=== PATIENT | male | born 1950 | race Caucasian/White ===

== ENCOUNTER 2025-01-26 08:34 | Outpatient (CLI) | payer BC, SELFPAY ==
--- OUTSIDE RECORDS SUMMARY | 2025-01-26 08:50 | XMS_ITS | CONTINUITY OF CARE DOCUMENT ---
Author Name deborah cabrera Address Unknown Organization [facility] Address [id number] 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 active Tremaine Marti MD not see n on echo Diabetes mellitus active Tremaine Marti MD n ml egfr on x 3 rx Sleep apnea;on rx active Tremaine Marti MD Hyperlipidemia;NEG CRP active Tremaine Marti MD FAMILY HISTORY OF HEART DISEASE active Tremaine Marti MD Tobacco dependence, continuous active Tremaine Marti MD CAD;carotid plaquing active Tremaine Gregg ox x 2.5 hx of AMI, subendocardial;multiple active Tremaine Marti MD CABG;2004 in [place], active Tremaine Marti MD Cardiomyopathy completed - Tremaine Marti MD lowest 25 Impotence of organic origin active Tremaine rick MD PVD; active Tremaine Marti MD Obesity active Tremaine Marti MD COPD active Tremaine Marti MD Adenomatous colonic polyp active Tremaine mccarty MD Diastolic CHF; completed - Tremaine Marti MD lowest 25, on farxag, did not toll entresto and cannot afford kerenida Anemia completed - Tremaine Marti MD LBBB completed - Tremaine Marti MD Screening active Tremaine Marti MD Restrictive lung disease completed - Tremaine Marti MD Hypertriglyceridemia active Tremaine Gregg Bradycardia;due to rx completed - Tremaine Marti MD Valvular heart disease completed 9 - Tremaine Marti MD SVT;brief;nml tsh active Tremaine Marti MD Exposure to SARS-associated coronavirus;had vaccine active Tremaine Marti MD Venous insufficiency active Tremaine Gregg Gynecomastia, male completed - Tremaine Marti MD Granulomatous lung disease active Tremaine caldwell MD Microalbuminuria active Tremaine Marti MD nm l egfr on x3 rx Cardiomyopathy, ischemic completed - Tremaine Marti MD lowest 27% CHF, systolic, chronic active Tremaine Marti MD lowest 27, did not huan entresto r pm not covredd n eg iron Cardiomyopathy, ischemic completed - Tremaine Marti MD S/P BIV/AICD Biotronik ( MRI Safe) active Tremaine Marti MD lv lead in septum ENCOUNTERS Date Type Provider Location Encounter Diag nosis - In-person encounter Office Visit Tremaine Marti MD [facility] - In-person encounter Office Visit Luis Umana MD [facility] - In-person encounter Office Visit Tremaine Marti MD [facility] SVT;brief;nml tshCHF, systolic, chronicCardiomyopathy, ischemicS/P BIV/AICD Biotronik ( MRI Safe) - In-person encounter Office Visit Luis Umana MD [facility] - In-person encounter Office Visit Tremaine Marti MD [facility] Diabetes mellitusCAD;carotid plaquingGynecomastia, maleMicroalbuminuriaCardiomyopathy, ischemicCHF, systolic, chronic - In-person encounter Office Visit Tremaine Marti MD [facility] - In-person encounter Office Visit Luis Umana MD [facility] Cardiomyopathy, ischemicCHF, systolic, chronic - In-person encounter Office Visit Tremaine Marti MD [facility] - In-person encounter Office Visit Tremaine Marti MD [facility] Diabetes mellitusCAD;carotid plaquing - In-person encounter Office Visit Tremaine Marti MD [facility] LBBBValvular heart disease - In-person encounter Office Visit Tremaine Marti MD [facility] Exposure to SARS-associated coronavirus; had vaccineGranulomatous lung disease - In-person encounter Office Visit rTemaine Marti MD [facility] - In-person encounter Office Visit Tremaine Marti MD [facility] - In-person encounter Office Visit Chandan Birmingham MD [facility] - In-person encounter Office Visit Tremaine Marti MD [facility] CardiomyopathyDiastolic CHF;Bradycardia; due to rxSVT;brief;nml tshExposure to SARS-associated coronavirus;had vaccineVenous insufficiency - In-person encounter Office Visit Tremaine Marti MD [facility] Restrictive lung disease - In-person encounter Office Visit Tremaine Marti MD [facility] CAD;carotid plaquingCOPDScreeningHypertriglyceridemia - In-person encounter Office Visit Tremaine Marti MD [facility] Tobacco dependence, continuousDiastolic CHF;AnemiaScreening - In-person encounter Office Visit Tremaine Marti MD [facility] Hyperlipidemia;NEG CRPAdenomatous coloni c polypDiastolic CHF; - In-person encounter Office Visit Tremaine Marti MD [facility] PVD;Obesity - In-person encounter Office Visit Tremaine Marti MD [facility] Hyperlipidemia;NEG CRPCAD;carotid plaquingImpotence of organic origin - In-person encounter Office Visit Tremaine Marti MD [facility] Diabetes mellitusSleep apnea;on rxHyperlipidemia;NEG CRPFAMILY HISTORY OF HEART DISEASETobacco dependence, continuousCAD;carotid plaquinghx of AMI, subendocardial;multipleCABG;2004 in [place], VITAL SIGNS Date Observation Value Provider Body Mass Index (Ratio) 31.66 kg/m2 Kassandra Marti MD blood pressure, cuff size regular Rajeev Sanabria RN blood pressure, diastolic 60 mm[Hg] Rajeev Sanabria RN blood pressure, systolic 128 mm[Hg] Robert Sanabria RN oxygen saturation, oximetry 96 % Robert Sanabria RN respiratory rate E&M 18 /min Robert palacios RN pulse rate 71 /min Robert Sanabria RN weight E&M 240 [lb_av] Robert Sanabria RN Body Mass Index (Ratio) 32.06 kg/m2 Wong Umana MD blood pressure, cuff size regular An meghan Austin blood pressure, diastolic 66 mm[Hg] Jayashree Austin blood pressure, systolic 111 mm[Hg] Barbi Austin oxygen saturation, oximetry 95 % Jeanie Austin respiratory rate E&M 14 /min Jeanie Austin pulse rate 71 /min Jeanie Austin weight E&M 243 [lb_av] Jeanie Austin height E&M 73 [in_i] Jeanie [place] Body Mass Index (Ratio) 32.19 kg/m2 Kassandra Marti MD blood pressure, cuff size regular David reinoso Orellana blood pressure, diastolic 55 mm[Hg] Ta arleth Orellana blood pressure, systolic 108 mm[Hg] Tab ithmissy Orellana pulse rate 76 /min Katja Orellana oxygen saturation, oximetry 96 % Katja Orellana respiratory rate E&M 12 /min Katja Orellana weight E&M 244 [lb_av] Katja Orellana height E&M 73 [in_i] Katja Orellana Body Mass Index (Ratio) 32.45 kg/m2 Wong Umana MD blood pressure, cuff size large Ke rri Dorothy blood pressure, diastolic 80 mm[Hg] Ke rri Titiuenesam blood pressure, systolic 132 mm[Hg] Ker ri Dorothy oxygen saturation, oximetry 94 % Evelin Dorothy respiratory rate E&M 12 /min Evelin Roberto hurt pulse rate 72 /min Evelin Keith kelly weight E&M 246 [lb_av] Evelin Keith kelly height E&M 73 [in_i] Evelin Keith kelly Body Mass Index (Ratio) 32.32 kg/m2 Kassandra Marti MD blood pressure, diastolic 55 mm[Hg] Ja rret blood pressure, systolic 114 mm[Hg] Jar ret pulse rate 70 /min Leonel blood pressure, cuff size regular Ja rr oxygen saturation, oximetry 96 % Leonel respiratory rate E&M 16 /min Leonel weight E&M 245 [lb_av] Leonel height E&M 73 [in_i] Leonel Body Mass Index (Ratio) 32.19 kg/m2 Mariposavalencia hanks [facility] blood pressure, cuff size regular [facility] blood pressure, diastolic 64 mm[Hg] Ja rr blood pressure, systolic 127 mm[Hg] Jar ret pulse rate 65 /min Leonel oxygen saturation, oximetry 97 % Leonel respiratory rate E&M 16 /min Leonel weight E&M 244 [lb_av] Leonel height E&M 73 [in_i] Leonel y Body Mass Index (Ratio) 32.19 kg/m2 Wong Umana MD blood pressure, diastolic 69 mm[Hg] Yaritza nkLogliz blood pressure, systolic 130 mm[Hg] Lucille kLogliz pulse rate 75 /min Renetta Orellana blood pressure, cuff size regular Fa rosario Orellana blood pressure, diastolic 69 mm[Hg] Fa [facility] Esteban blood pressure, systolic 130 mm[Hg] [facility] oxygen saturation, oximetry 97 % Renetta Orellana respiratory rate E&M 16 /min Renetta Uriel iller weight E&M 244 [lb_av] [facility] height E&M 73 [in_i] [facility] Body Mass Index (Ratio) 31.92 kg/m2 Kassandra Marti MD blood pressure, cuff size regular Fa [facility] blood pressure, diastolic 65 mm[Hg] Fa [facility] blood pressure, systolic 123 mm[Hg] Hal [facility] pulse rate 76 /min [facility] oxygen saturation, oximetry 97 % [facility] respiratory rate E&M 16 /min Renetta Uriel ille weight E&M 242 [lb_av] [facility] height E&M 73 [in_i] [facility] Body Mass Index (Ratio) 33.64 kg/m2 Kassandra Marti MD blood pressure, diastolic 75 mm[Hg] St val Howe blood pressure, systolic 130 mm[Hg] Sta thong Howe oxygen saturation, oximetry 94 % Ellen Howe pulse rate 69 /min Ellenthong Howe respiratory rate E&M 16 /min Ellen malin weight E&M 255 [lb_av] Ellenthong Howe height E&M 73 [in_i] Ellenthong Howe Body Mass Index (Ratio) 33.64 kg/m2 Kassandra Marti MD blood pressure, diastolic -1 mm[Hg] Li nkLogic blood pressure, systolic 107 mm[Hg] Lucille kLogic blood pressure, diastolic 64 mm[Hg] Sa ra Willis blood pressure, systolic 107 mm[Hg] Anil a Willis oxygen saturation, oximetry 98 % Pema Willis respiratory rate E&M 18 /min Pema Si ms pulse rate 78 /min Pema Willis blood pressure, cuff size large Sa ra Willis weight E&M 255 [lb_av] Pema Willis height E&M 73 [in_i] Pema Willis Body Mass Index (Ratio) 34.30 kg/m2 Kassandra Marti MD blood pressure, diastolic 66 mm[Hg] Ch astity Amos blood pressure, systolic 125 mm[Hg] Ivone stity Amos oxygen saturation, oximetry 95 % Chastity Amos pulse rate 68 /min Chastity Amos respiratory rate E&M 16 /min Chastit y Amos weight E&M 260 [lb_av] Chastity Amos height E&M 73 [in_i] [facility] Amos Body Mass Index (Ratio) 36.41 kg/m2 Kassandra Marti MD blood pressure, cuff size large Ke rri Titiuenenfeldvinh blood pressure, diastolic 64 mm[Hg] Ke rri Titiuenenfeldvinh blood pressure, systolic 130 mm[Hg] Ker ri Dorothy oxygen saturation, oximetry 98 % Evelin Dorothy respiratory rate E&M 16 /min Evelin hurt pulse rate 73 /min Evelin Keith er weight E&M 276 [lb_av] Evelin Titiuenenfe er height E&M 73 [in_i] Evelin Titiuenenfkenan er Body Mass Index (Ratio) 36.41 kg/m2 Kassandra Marti MD blood pressure, diastolic 66 mm[Hg] Cy david Gramajo blood pressure, systolic 109 mm[Hg] Debra Gramajo oxygen saturation, oximetry 95 % Corina Gramajo pulse rate 78 /min Corina Moreno l respiratory rate E&M 16 /min Corinachristina Gramajo blood pressure, cuff size regular Cy david Gramajo weight E&M 276 [lb_av] Corinachristina jon height E&M 73 [in_i] Corina Michelbel l Body Mass Index (Ratio) 36.54 kg/m2 Abhi Birmingham MD blood pressure, diastolic 57 mm[Hg] Rh onrui Ninfa blood pressure, systolic 100 mm[Hg] Rho nda Ninfa oxygen saturation, oximetry 97 % Tamy Ninfa pulse rate 70 /min Tamy Ninfa weight E&M 277 [lb_av] Tamy Ninfa blood pressure, cuff size regular Rh aj Ninfa respiratory rate E&M 16 /min Tamy Ninfa height E&M 73 [in_i] Tamy Ninfa Body Mass Index (Ratio) 36.15 kg/m2 Kassandra Marti MD blood pressure, diastolic 63 mm[Hg] Cy ntanette Gramajo blood pressure, systolic 105 mm[Hg] Debra christina Gramajo blood pressure, cuff size regular Cy david Gramajo pulse rate 57 /min Corina jon oxygen saturation, oximetry 96 % Corina Gramajo respiratory rate E&M 16 /min Corinachristina Gramajo weight E&M 274 [lb_av] Corina jon height E&M 73 [in_i] Corina Michelbel danay Body Mass Index (Ratio) 37.99 kg/m2 Kassandra Marti MD blood pressure, resting Yes Tons [place] blood pressure, diastolic 60 mm[Hg] To nsha [place] blood pressure, systolic 98 mm[Hg] Ton sha [place] oxygen saturation, oximetry 95 % [place]ha [place] respiratory rate E&M 16 /min [place] pulse rate 59 /min [place] weight E&M 288 [lb_av] [place] height E&M 73 [in_i] [place] Body Mass Index (Ratio) 39.31 kg/m2 Kassandra Marti MD blood pressure, diastolic 70 mm[Hg] Da nelson Terrie blood pressure, systolic 112 mm[Hg] Dac ia Terrie oxygen saturation, oximetry 93 % Fabiola Terrie respiratory rate E&M 18 /min Fabiola V oss pulse rate 67 /min Fabiola Terrie weight E&M 298 [lb_av] Fabiola Terrie height E&M 73 [in_i] Fabiola Terrie Body Mass Index (Ratio) 39.92 kg/m2 Kassandra Marti MD blood pressure, diastolic 70 mm[Hg] Anastasia Bean blood pressure, systolic 124 mm[Hg] Nirmala Bean oxygen saturation, oximetry 97 % Gemma Bean respiratory rate E&M 20 /min Janine Bean pulse rate 66 /min Gemma siu weight E&M 302.6 [lb_av] Gemma escalera height E&M 73 [in_i] Gemma siu Body Mass Index (Ratio) 40.37 kg/m2 Kassandra Marti MD blood pressure, diastolic 72 mm[Hg] Anastasia Bean blood pressure, systolic 132 mm[Hg] Nirmala Bean oxygen saturation, oximetry 96 % Gemma Bean respiratory rate E&M 20 /min Janine Bean pulse rate 67 /min Gemma siu weight E&M 306 [lb_av] Gemma underwoodlaura height E&M 73 [in_i] Gemma Alonzo yasmineon blood pressure, diastolic 66 mm[Hg] Anastasia Bean blood pressure, systolic 116 mm[Hg] Nirmala Bean pulse rate 63 /min Gemma siu oxygen saturation, oximetry 98 % Gemma Bean respiratory rate E&M 18 /min Janine Bean Body Mass Index (Ratio) 39.58 kg/m2 Sari Bean weight E&M 300 [lb_av] Gemma Alonzo yasmineon weight E&M 298 [lb_av] Susan Gill height E&M 73 [in_i] Susan Gill blood pressure, diastolic 67 mm[Hg] Anastasia Bean blood pressure, systolic 120 mm[Hg] Nirmala Palomoholdenshad Bean Body Mass Index (Ratio) 39.34 kg/m2 Sari Bean pulse rate 66 /min Gemma siu oxygen saturation, oximetry 97 % Gemma Bean respiratory rate E&M 18 /min Janine Bean weight E&M 298.2 [lb_av] Gemma duranon blood pressure, diastolic 66 mm[Hg] Anastasia Bean blood pressure, systolic 120 mm[Hg] Nirmala Bean Body Mass Index (Ratio) 38.57 kg/m2 Sari Bean pulse rate 72 /min Gemma Alonzo yasminelaura oxygen saturation, oximetry 97 % Gemma Bean respiratory rate E&M 18 /min Janine Bean weight E&M 292.4 [lb_av] Gemma Stevens enson height E&M 73 [in_i] Gemma Alonzo yasminelaura ALLERGIES Allergy Name Onset Date Reaction Criticality Status ALDACTONE gyno Low Criticality active ENTRESTO low bp Low Criticality active DYE High Criticality active RESULTS Date Observation Value Provider Reference Range Interpretation Location activated partial thromboplastin time (aPTT) 29 s [facility] 24-33 prothrombin time (patient) 11.4 s [facility] 9.1-12.0 international normalized ratio (INR) 1.1 [facility] 0.9-1.2 bacteria, urine microscopy None seen [facility] None seen/Few hyaline casts, urine None seen [facility] None seen epithelial cells, urine 0-10 [facility] 0 - 10 RBC, Urine 0-2 /hpf [facility] 0 - 2 WBC urine on microscopy None seen /hpf [facility] 0 - 5 urinalysis, microscopic examination See below: [facility] nitrate, urine Negative [facility] Negative urobilinogen, urine, semiquantitative (dipstick) 0.2 [facility] 0.2-1.0 bilirubin, urine Negative [facility] Negative hemoglobin, urine, by dipstick Negative [facility] Negative ketones, urine, by test strip Negative [facility] Negative glucose, urine 3+ [facility] Negative Abnormal protein, urine, semiquantitative (dipstick) 1+ [facility] Negative/Tra ce Abnormal leukocyte esterase, urine, by dipstick Negative [facility] Negative appearance, urine Clear [facility] Clear urine color Yellow [facility] Yellow pH, urine, semiquantitative 6.0 [facility] 5.0-7.5 specific gravity, body fluid >=1.030 [facility] 1.005-1.030 Abnormal alanine aminotransferase (SGPT), serum 10 1/L [facility] 0-44 aspartate aminotransferase (SGOT), serum 18 1/L [facility] 0-40 alkaline phosphatase, serum 49 1/L [facility] 44-121 bilirubin, serum, total 0.5 mg/dL [facility] 0.0-1.2 globulin, serum 1.9 [facility] 1.5-4.5 albumin, serum 4.3 g/dL [facility] 3.8-4.8 protein, total, serum 6.2 g/dL [facility] 6.0-8.5 calcium, serum 9.2 mg/dL [facility] 8.6-10.2 carbon dioxide, venous blood 22 mmol/L [facility] 20-29 chloride, serum 105 mmol/L [facility] 96-106 potassium, serum 4.6 mmol/L [facility] 3.5-5.2 sodium, serum 142 mmol/L [facility] 666-573 7713/08/ 20 urea nitrogen/creatinine ratio, serum 15 [facility] 10-24 creatinine, serum 1.18 mg/dL [facility] 0.76-1.27 urea nitrogen, blood 18 mg/dL [facility] 8-27 blood glucose, random 152 mg/dL [facility] 70-99 High basophil count, absolute 0.0 x10E3/uL [facility] 0.0-0.2 Eosinophil Absolute Count 0.2 X10E3/UL [facility] 0.0-0.4 monocyte count, blood, automated 0.5 X10E3/UL [facility] 0.1-0.9 lymphocyte count, blood, automated 1.8 X10E3/UL [facility] 0.7-3.1 Absolute Neutrophils 5.3 X10E3/UL [facility] 1.4-7.0 basophils as percent of blood leukocytes 1 % [facility] Not Estab. eosinophils as percent of blood leukocytes 3 % [facility] Not Estab. monocytes as percent of blood leukocytes 6 % [facility] Not Estab. lymphocytes as percent of blood leukocytes 22 % [facility] Not Estab. neutrophils as percent of blood leukocytes 68 % [facility] Not Estab. platelet count 144 X10E3/UL [facility] 150-450 Low red blood cell distribution width 13.0 % [facility] 11.6-15.4 mean corpuscular hemoglobin concentration, RBC 32.1 G/DL [facility] 31.5-35.7 mean corpuscular hemoglobin, RBC 28.7 pg [facility] 26.6-33.0 mean corpuscular volume, RBC 90 fL [facility] 79-97 hematocrit, blood 46.8 % [facility] 37.5-51.0 hemoglobin, blood 15.0 g/dL [facility] 13.0-17.7 erythrocyte (RBC) count 5.23 X10E6/UL [facility] 4.14-5.80 leukocyte count, blood 7.8 X10E3/UL [facility] 3.4-10.8 c-reactive protein, quantitative, serum 1.23 mg/L [facility] 0.00-3.00 pro brain natriuretic peptide 468 pg/mL [facility] 0-376 High calcium, serum 9.8 mg/dL [facility] 8.6-10.2 carbon dioxide, venous blood 26 mmol/L [facility] 20-29 chloride, serum 101 mmol/L [facility] 96-106 potassium, serum 4.6 mmol/L [facility] 3.5-5.2 sodium, serum 144 mmol/L [facility] 078-510 1725/09/ 16 urea nitrogen/creatinine ratio, serum 16 [facility] 10-24 eGFR if 66 mL/min/{1.7 3_m2} [facility] >59 eGFR if not 57 mL/min/{1.7 3_m2} [facility] >59 Low creatinine, serum 1.26 mg/dL [facility] 0.76-1.27 urea nitrogen, blood 20 mg/dL [facility] 8-27 blood glucose, random 101 mg/dL [facility] 65-99 High pro brain natriuretic peptide 560 pg/mL [facility] 0-376 High microalbumin/creatin ine ratio, urine 58.2 MG/G CREAT [facility] 0.0-30.0 High microalbumin, random, urine 8.1 mg/dL [facility] Units converted. See lab report for original value. creatinine, random, urine 139.2 mg/dL [facility] Not Estab. lipoprotein, beta, serum, point, quantitative, calculated 72 mg/dL [facility] 0-99 very low density lipoproteins 51 mg/dL [facility] 5-40 High HDL cholesterol, serum 29 mg/dL [facility] >39 Low triglyceride, serum, random 255 mg/dL [facility] 0-149 High cholesterol, serum 152 mg/dL [facility] 045-231 9707/01/ 17 alanine aminotransferase (SGPT), serum 12 1/L [facility] 0-44 aspartate aminotransferase (SGOT), serum 15 1/L [facility] 0-40 alkaline phosphatase, serum 49 1/L [facility] 39-117 bilirubin, serum, total 0.4 mg/dL [facility] 0.0-1.2 albumin/globulin ratio, serum 2.1 [facility] 1.2-2.2 globulin, serum 2.1 [facility] 1.5-4.5 albumin, serum 4.4 g/dL [facility] 3.6-4.8 protein, total, serum 6.5 g/dL [facility] 6.0-8.5 calcium, serum 9.4 mg/dL [facility] 8.6-10.2 carbon dioxide, venous blood 28 mmol/L [facility] 18-29 chloride, serum 101 mmol/L [facility] 96-106 potassium, serum 4.2 mmol/L [facility] 3.5-5.2 sodium, serum 144 mmol/L [facility] 047-189 6461/01/ 17 urea nitrogen/creatinine ratio, serum 13 [facility] 10-24 eGFR if not 78 mL/min/{1.7 3_m2} [facility] >59 creatinine, serum 1.00 mg/dL [facility] 0.76-1.27 urea nitrogen, blood 13 mg/dL [facility] 8-27 blood glucose, random 88 mg/dL [facility] 65-99 pro brain natriuretic peptide 588.7 pg/mL [facility] 0.0 - 125.0 High very low density lipoproteins 46.4 mg/dL [facility] 5.0 - 40.0 High LDL/HDL (low-density lipoprotein/high-den sity lipoprotein) ratio 2.1 RATIO [facility] - lipoprotein, beta, serum, point, quantitative, calculated 70.6 (?) [facility] 0.0 - 100.0 HDL cholesterol, serum 33.0 mg/dL [facility] 35.0 - 55.0 Low cholesterol, serum 150.0 mg/dL [facility] 0.0 - 200.0 triglyceride, serum, fasting 232.0 mg/dL [facility] 0.0 - 150.0 High ferritin, serum 115.5 ng/mL [facility] 30.0 - 400.0 anion gap, serum 13.0 [facility] - albumin/globulin ratio, serum 2.4 g/dL [facility] 1.1 - 2.5 globulin, serum 1.9 [facility] 2.3 - 3.8 Low urea nitrogen/creatinine ratio, serum 11.8 [facility] - Estimated Glomerular Filtration Rate (calc) 71.2 (?) [facility] 59.0 - chloride, serum 104.0 mmol/L [facility] 98.0 - 107.0 potassium, serum 4.2 mmol/L [facility] 3.5 - 5.1 sodium, serum 144.0 mmol/L [facility] 136.0 - 145.0 creatinine, serum 1.1 mg/dL [facility] 0.7 - 1.2 carbon dioxide, venous blood 27.0 mmol/L [facility] 23.0 - 31.0 albumin, serum 4.5 g/dL [facility] 3.5 - 5.2 calcium, serum 9.6 mg/dL [facility] 8.6 - 10.2 aspartate aminotransferase (SGOT), serum 13.0 1/L [facility] 0.0 - 40.0 alkaline phosphatase, serum 48.0 1/L [facility] 40.0 - 130.0 alanine aminotransferase (SGPT), serum 12.0 1/L [facility] 0.0 - 41.0 protein, total, serum 6.4 g/dL [facility] 6.6 - 8.7 Low bilirubin, serum, total 0.3 mg/dL [facility] 0.0 - 1.2 urea nitrogen, blood 13.0 mg/dL [facility] 8.0 - 23.0 blood glucose, random 134.0 mg/dL [facility] 74.0 - 99.0 High red blood cell distribution width, size density 43.3 fL [facility] - immature granulocytes, percentage of total cells, blood 0.5 % [facility] - nucleated red blood cells as percent of blood leukocytes 0.0 % [facility] - red blood cell (erythrocyte) count, per high power field 0.0 10*3/UL [facility] - eosinophils as percent of blood leukocytes 3.6 % [facility] - neutrophils as percent of blood leukocytes 58.2 % [facility] - Absolute Neutrophils 3.8 CELLS/UL [facility] 1.5 - 7.8 basophils as percent of blood leukocytes 0.6 % [facility] - Absolute Basophils 0.0 CELLS/UL [facility] 0.0 - 0.2 monocytes as percent of blood leukocytes 6.5 % [facility] - Absolute Monocytes 0.4 CELLS/UL [facility] 0.2 - 1.0 lymphocytes as percent of blood leukocytes 30.6 % [facility] - Absolute Lymphocytes 2.0 CELLS/UL [facility] 0.9 - 3.9 mean platelet volume 10.8 (?) [facility] - platelet count 157.0 THOUSAND/UL [facility] 100.0 - 400.0 mean corpuscular hemoglobin concentration, RBC 31.5 G/DL [facility] 31.0 - 38.0 mean corpuscular hemoglobin, RBC 29.2 pg [facility] 25.0 - 35.0 mean corpuscular volume, RBC 92.7 fL [facility] 75.0 - 100.0 hematocrit, blood 41.6 % [facility] 35.0 - 55.0 hemoglobin, blood 13.1 g/dL [facility] 11.5 - 16.5 erythrocyte count, whole blood 4.5 MILLION/UL [facility] 3.5 - 5.5 iron, serum 89.0 ug/dL [facility] 31.0 - 144.0 iron saturation percent, serum 24.0 % [facility] 20.0 - 50.0 iron binding capacity, total 371.0 ug/dL [facility] 250.0 - 450.0 hemoglobin A1C, blood, as % of total hemoglobin 7.4 % [facility] 4.0 - 5.6 High anion gap, serum 14.7 [facility] - albumin/globulin ratio, serum 3.3 g/dL [facility] 1.1 - 2.5 High globulin, serum 2.1 [facility] 2.3 - 3.8 Low urea nitrogen/creatinine ratio, serum 13.0 [facility] - Estimated Glomerular Filtration Rate (calc) 79.7 (?) [facility] 59.0 - chloride, serum 104.3 mmol/L [facility] 98.0 - 107.0 potassium, serum 4.2 mmol/L [facility] 3.5 - 5.1 sodium, serum 146.0 mmol/L [facility] 136.0 - 145.0 High creatinine, serum 1.0 mg/dL [facility] 0.7 - 1.2 carbon dioxide, venous blood 27.0 mmol/L [facility] 23.0 - 31.0 albumin, serum 4.8 g/dL [facility] 3.5 - 5.2 calcium, serum 9.3 mg/dL [facility] 8.6 - 10.2 aspartate aminotransferase (SGOT), serum 17.0 1/L [facility] 0.0 - 40.0 alkaline phosphatase, serum 45.0 1/L [facility] 40.0 - 130.0 alanine aminotransferase (SGPT), serum 13.0 1/L [facility] 0.0 - 41.0 protein, total, serum 6.9 g/dL [facility] 6.6 - 8.7 bilirubin, serum, total 0.2 mg/dL [facility] 0.0 - 1.2 urea nitrogen, blood 13.0 mg/dL [facility] 8.0 - 23.0 blood glucose, random 76.0 mg/dL [facility] 74.0 - 99.0 pro brain natriuretic peptide 367.6 pg/mL [facility] 0.0 - 125.0 High international normalized ratio (INR) 1.0 Radha Louise Normal HISTORY OF MEDICATION USE Medication Status Instructions Dates Provider Indications Com ments Ozempic 1 mg/dose (4 mg/3 mL) pen injector active INJECT 1 MG UNDER THE SKIN ONCE WEEKLY Robyn Gonzalez Toujeo Max U-300 SoloStar 300 unit/mL (3 mL) insulin pen active INJECT 80 UNITS UNDER THE SKIN ONCE DAILY IN THE MORNING Kiarra Silverio tramadol 50 mg tablet completed 1 tablet every six hours for pain - Tremaine Marti MD doxycycline hyclate 100 mg capsule completed Take 1 capsule by mouth twice a day - Tremaine Marti MD Ozempic 2 mg/dose (8 mg/3 mL) pen injector completed Inject 2 mg subcutaneously once a week - Robyn Gonzalez tamsulosin 0.4 mg capsule active TAKE ONE CAPSULE BY MOUTH EVERY NIGHT AT BEDTIME FOR PROSTATE Tremaine Marti MD Kerendia 20 mg tablet active TAKE 1 TABLET BY MOUTH EVERY DAY [facility] Vascepa 1 gram capsule active Take 2 capsule by mouth twice a day [facility] rosuvastatin 20 mg tablet active Take 1 tablet by mouth once a day [facility] Vascepa 1 gram capsule completed TAKE 2 CAPSULES TWICE DAILY - Evelin De La Cruz Farxiga 10 mg tablet active Take 1 tablet by mouth once a day [facility] Ozempic 1 mg/dose (4 mg/3 mL) pen injector completed Inject 1 mg subcutaneously once a week - Tremaine Marti MD valsartan 40 mg tablet active Take 1 tablet by mouth once a day [facility] Xarelto 2.5 mg tablet active Take 1 tablet by mouth twice a day [facility] rosuvastatin 20 mg tablet completed TAKE 1 TABLET DAILY - Evelin Gruenenfelder Ozempic 1 mg/dose (4 mg/3 mL) pen injector completed weekly - Evelin De La Cruz Coreg 25 mg tablet active Take 1 tablet by mouth twice a day [facility] Special[facility] Farxiga 10 mg tablet completed TAKE 1 TABLET DAILY. - Evelin De La Cruz rosuvastatin 20 mg tablet completed Take 1 tablet by mouth once a day TAKE 1 TABLET DAILY - Evelin De La Cruz Vascepa 1 gram capsule completed Take 2 capsule by mouth twice a day TAKE 2 CAPSULES TWICE A DAY - Evelin De La Cruz Xarelto 2.5 mg tablet completed Take 1 tablet by mouth twice a day TAKE 1 TABLET TWICE A DAY - Evelin De La Cruz rosuvastatin 20 mg tablet completed TAKE 1 TABLET DAILY - Tatyana Hawk NP valsartan 40 mg tablet completed TAKE 1 TABLET DAILY - Evelin De La Cruz Farxiga 10 mg tablet completed TAKE 1 TABLET DAILY. REPLACES THE JARDIANCE. - Tatyana Hawk NP Kerendia 10 mg tablet completed Take 1 tablet by mouth once a day *STOP after coupons run out-denied by insurance - Tatyana Manucori Max U-300 SoloStar 300 unit/mL (3 mL) insulin pen completed - Katja Orellana eplerenone 25 mg tablet completed TAKE 1 TABLET DAILY (REPLACES ALDACTONE) - Steffi Blanc Ozempic 1 mg/dose (4 mg/3 mL) pen injector completed INJECT 1 MG UNDER THE SKIN ONCE WEEKLY, REDUCES RISK OF MAJOR CV EVENTS - Tatyana Hawk NP metformin 1,000 mg tablet active TAKE 1 TABLET TWICE A DAY [facility] furosemide 40 mg tablet completed TAKE 1 TABLET DAILY - Evelin De La Cruz Xarelto 2.5 mg tablet completed TAKE 1 TABLET TWICE A DAY - Tatyana Hawk NP Vascepa 1 gram capsule completed TAKE 2 CAPSULES TWICE A DAY - Tatyana Hawk NP Farxiga 10 mg tablet completed Take 1 tablet by mouth once a day - Pema Willis Diovan 40 mg tablet completed 1 tablet by mouth once a day - Pema Willis furosemide 40 mg tablet completed Take 1 tablet by mouth once a day as needed - Tremaine Marti MD Jardiance 10 mg tablet completed Take 1 tablet by mouth once a day - Robert Sanabria RN glipizide 10 mg tablet completed TAKE 1 TABLET TWICE A DAY - Kwaku Pineda rosuvastatin 20 mg tablet completed TAKE 1 TABLET DAILY - Kwaku Pineda eplerenone 25 mg tablet completed once a day - Leeann Ch NP Ozempic 1 mg/dose (2 mg/1.5 mL) pen injector completed Inject 1 mg subcutaneously once a week - Tremaine Marti MD Metamucil 0.4 gram capsule active Take 1 tablet once a day as needed Tatyana Hawk NP EMPAGLIFLOZIN 10 MG /PLACEBO completed 1 tab by mouth daily - Alfreda Díazeronina [facility] Xarelto 2.5 mg tablet completed Take 1 tablet twice a day - Mack Guerra Vascepa 1 gram capsule completed 2 twice a day - Tremaine Marti MD Crestor 20 mg tablet completed ONE TAB. DAILY - Tremaine Marti MD aspirin 81 mg tablet,delayed release (/EC) active 1 tablet by mouth once a day Beulah HUANG ASA/ RIVAROXABAN completed LTOLE ASA 100mg once daily and Rivaroxaban 2.5mg BID - Beulah ROBB-NIACIN 500 MG ORAL TABLET EXTENDED RELEASE completed 3 a day - Tremaine Marti MD TOPAMAX 50 MG ORAL TABLET completed daily - Tremaine Marti MD ADIPEX-P 37.5 MG ORAL CAPSULE completed daily - Tremaine Marti MD CLARITIN 10 MG ORAL TABLET completed once daily - Tremaine Marti MD SINGULAIR 10 MG ORAL TABLET completed one tab. daily - Tremaine Marti MD ASPIRIN ADULT LOW DOSE 81 MG ORAL TABLET DELAYED RELEASE completed One Tab By Mouth Daily - Beulah Edwards Entresto 24-26 mg tablet completed twice a day - Tremaine Marti MD IRON TABLET completed - Tremaine Marti MD B-Complex With B-12 2.5 mg-2.5 mg- 5 mg-100 mcg tablet completed - Tremaine Marti MD QSYMIA 7.5-46 MG ORAL CAPSULE EXTENDED RELEASE 24 HOUR completed one tablet daily - My Louise RN QSYMIA 3.75-23 MG ORAL CAPSULE EXTENDED RELEASE 24 HOUR completed one tablet daily - My oLuise RN TYLENOL SEVERE ALLERGY 12.5-500 MG ORAL TABLET completed at bed time - My Louise RN TRAMADOL HCL TABLET completed 50 mg every 4-5 hours as needed - My HUANG PROTONIX VS PLACEBO completed - Beulah HUANG ASA/ RIVAROXABAN completed - My Louise RN VIAGRA 100 MG ORAL TABLET completed one a day as needed - My Louise RN SPIRONOLACTONE TABS 25MG completed TAKE 1 TABLET DAILY - Leeann Ch NP [facility] STUDY completed - Martine DEMPSEY FLEXTOUCH SOLUTION PEN-INJECTOR completed 95 unit every morning - Gemma Bean acetaminophen 500 mg tablet completed 1 tablet every night as needed - Tremaine Marti MD MULTIVITAMINS ORAL CAPSULE completed ONE TAB. DAILY - Gemma Bean ZYRTEC ALLERGY CAPSULE completed twice daily - Gemma Bean Slo-Niacin 500 mg tablet extended release completed 3 tablet every night - Tatyana Hawk NP ASPIRIN 81 MG ORAL TABLET completed ONE TABLET DAILY - Gemma Bean LISINOPRIL 10 MG ORAL TABLET completed ONE TABLET DAILY - Tremaine Marti MD POTASSIUM CHLORIDE MURTAZA ER 10 MEQ ORAL TABLET EXTENDED RELEASE completed ONE TABLET DAILY - Tremaine Marti MD furosemide 40 mg tablet completed Take 1 tablet once a day - Tremaine Marti MD SIMVASTATIN 40 MG ORAL TABLET completed ONE TABLET DAILY - Tremaine Marti MD CLOPIDOGREL BISULFATE 75 MG ORAL TABLET completed ONE TABLET DAILY - Gemma Bean terazosin 5 mg capsule completed Take 1 capsule once a day - Tremaine Marti MD metformin 1,000 mg tablet completed 1 tablet twice a day - Laura Mckinley glipizide 10 mg tablet completed ONE TABLET TWICE DAILY - Laura [place]g 25 mg tablet completed 1 tablet twice a day - Tatyana Hawk NP SOCIAL HISTORY Date Observation Value Provider personal history of marijuana use no Tremaine Marti MD drug use no Tremaine Gregg alcohol use no Tremaine Gregg smoking/tobacco cess ation, patient education and counseling yes Tremaine Marti MD number of years as a smoker 40 a Tremaine Marti MD smoking history, tot al pack/day 0.5-1 Tremaine Marti MD cigarette use yes Tremaine Marti MD smoking status Current every da y smoker Tremaine Marti MD personal history of marijuana use no [facility] drug use no [facility] alcohol use no [facility] smoking/tobacco cess ation, patient education and counseling yes Hallie [facility] number of years as a smoker 40 a Hallie [facility] smoking history, tot al pack/day 0.5-1 Hallie [facility] cigarette use yes Hallie [facility] smoking status Current every da y smoker Hallie [facility] quit smoking, stage quit Tremaine rick MD personal history of marijuana use no Tremaine Marti MD drug use no Tremaine Gregg alcohol use no Tremaine Gregg smoking/tobacco cess ation, patient education and counseling yes Tremaine Marti MD number of years as a smoker 40 a Tremaine Marti MD smoking history, tot al pack/day 0.5-1 Tremaine Marti MD cigarette use yes Tremaine Marti MD smoking status Current every da y smoker Tremaine Marti MD personal history of marijuana use no Luis Umana MD drug use no Luis Gregg alcohol use no Luis Gregg smoking/tobacco cess ation, patient education and counseling yes Luis Umana MD number of years as a smoker 40 a Luis Umana MD smoking history, tot al pack/day 0.5-1 Luis Umana MD cigarette use yes Luis Umana MD smoking status Current every da y smoker Luis Umana MD personal history of marijuana use no Tremaine Marti MD drug use no Tremaine Gregg alcohol use no Tremaine Gregg smoking/tobacco cess ation, patient education and counseling yes Tremaine Marti MD number of years as a smoker 40 a Tremaine Marti MD smoking history, tot al pack/day 0.5-1 Tremaine Marti MD cigarette use yes Tremaine Marti MD smoking status Current every da y smoker Tremaine Marti MD personal history of marijuana use no [facility] drug use no [facility] alcohol use no [facility] smoking/tobacco cess ation, patient education and counseling yes Hallie [facility] number of years as a smoker 40 a Hallie [facility] smoking history, tot al pack/day 0.5-1 Hallie [facility] cigarette use yes Hallie [facility] smoking status Current every da y smoker Hallie [facility] smoking/tobacco cess ation, patient education and counseling yes Renetta Orellana number of years as a smoker 40 a Renetta Orellana smoking history, tot al pack/day 0.5-1 Renetta Orellana cigarette use yes Renetta Orellana smoking status Current every da y smoker Renetta Orellana smoking/tobacco cess ation, patient education and counseling yes Renetta Orellana number of years as a smoker 40 a Renetta Orellana smoking history, tot al pack/day 0.5-1 Renetta Orellana cigarette use yes Renetta Orellana smoking status Current every da y smoker Renetta Orellana smoking/tobacco cess ation, patient education and counseling yes Ellen Howe number of years as a smoker 40 a Ellen Howe smoking history, tot al pack/day 0.5-1 Tatyana Vilchisnina [employer]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 P atient has been counseled to quit. Tremaine Marti MD social history reviewed E&M revi ewed - no changes required Tremaine Marti MD social history E&M S moking History: P atient currently smokes every day. P atient has been counseled to quit. Tremaine Marti MD social history reviewed E&M revi ewed - no changes required Tremaine Marti MD quit smoking, stage quit Tremaine rick MD smoking/tobacco cess ation, patient education and counseling yes Leilani Trinidad number of years as a smoker 40 a Leilani Trinidad smoking history, tot al pack/day 1 Chastity Amos cigarette use yes Ivonestity Amos smoking status Current every da y smoker Leilani Trinidad smoking/tobacco cess ation, patient education and counseling yes Leeann Ch NP number of years as a smoker 40 a Leeann Ch NP smoking history, tot al pack/day 1 Leeann Ch NP cigarette use yes Leeann hathaway NP smoking status Current every da y smoker Leeann Ch NP social history E&M S moking History: P atient currently smokes every day. P atient has been counseled to quit. Tremaine Marti MD social history reviewed E&M revi ewed - no changes required Tremaine Marti MD smoking/tobacco cess ation, patient education and counseling yes Corina Gramajo number of years as a smoker 40 a Corina Gramajo smoking history, tot al pack/day 1 Corina Gramajo cigarette use yes Corina hatch smoking status Current every da y smoker Corina Gramajo number of grandchildren Chandan Birmingham MD U dori Birmingham MD social history E&M S moking History: P atient currently smokes every day. P atient has been counseled to quit. Chandan Birmingham MD smoking/tobacco cess ation, patient education and counseling yes Chandan Birmingham MD social history reviewed E&M revi ewed - no changes required Chandan Birmingham MD smoking status Current every da y smoker Tamy Ocasio social history E&M S moking History: P atient currently smokes every day. P atient has been counseled to quit. Tremaine Marti MD social history reviewed E&M revi ewed - no changes required Tremaine Marti MD smoking/tobacco cess ation, patient education and counseling yes Corina Gramajo number of years as a smoker 40 a Corina Gramajo smoking history, tot al pack/day 1 Corina Gramajo cigarette use yes Corina hatch smoking status Current every da y smoker Corina Avila social history E&M S moking History: P atient currently smokes every day. P atient has been counseled to quit. Tremaine Marti MD social history reviewed E&M revi ewed - no changes required Tremaine Marti MD smoking/tobacco cess ation, patient education and counseling yes Migel Mills number of years as a smoker 40 a Migel Mills smoking history, tot al pack/day 1 Migel Mills cigarette use yes Migel Mills smoking status Current every da y smoker Migel Mills social history E&M S moking History: P atient currently smokes every day. P atient has been counseled to quit. Tremaine Marti MD social history reviewed E&M revi ewed - no changes required Tremaine Marti MD smoking/tobacco cess ation, patient education and counseling yes Fabiola Terrie number of years as a smoker 40 a Fabiola Terrie smoking history, tot al pack/day 1 Fabiola Terrie cigarette use yes Fabiola Terrie smoking status Current every da y smoker Fabiola Terrie social history E&M S moking History: P atient currently smokes every day. P atient has been counseled to quit. Tremaine Marti MD social history reviewed E&M revi ewed - no changes required Tremaine Marti MD smoking/tobacco cess ation, patient education and counseling yes Gemma Bean number of years as a smoker 40 a Gemma Bean smoking history, tot al pack/day 1 Gemma Bean cigarette use yes GemmaGely escalera smoking status Current every da y smoker Gemma Bean social history E&M S moking History: P atient currently smokes every day. P atient has been counseled to quit. Tremaine Marti MD social history reviewed E&M revi ewed - no changes required Tremaine Marti MD smoking/tobacco cess ation, patient education and counseling yes Gemma Stevensenson number of years as a smoker 40 a Gemma Bean smoking history, tot al pack/day 1 Gemmamag Bean cigarette use yes Gemma Rodney enson smoking status Current every da y smoker Gemma Bean social history reviewed E&M revi ewed - no changes required Tremaine Marti MD smoking/tobacco cess ation, patient education and counseling yes Gemma Bean number of years as a smoker 40 a Gemma Bean smoking history, tot al pack/day 1 Gemma Bean cigarette use yes Gemma duranon smoking status Current every da y smoker Gemma Bean social history reviewed E&M revi ewed - no changes required Tremaine Marti MD smoking/tobacco cess ation, patient education and counseling yes Gemma Bean number of years as a smoker 40 a Gemma Bean smoking history, tot al pack/day 1 Gemma Bean cigarette use yes Gemma duranon smoking status Current every da y smoker Gemma Bean smoking/tobacco cess ation, patient education and counseling yes Tremaine Marti MD social history reviewed E&M revi ewed - no changes required Tremaine Marti MD quit smoking, stage quit Tremaine rick MD number of years as a smoker 40 a Gemma Bean smoking history, tot al pack/day 1 Gemma Bean cigarette use yes Gemma duranon smoking status Current every da y smoker Gemma Bean FUNCTIONAL STATUS Date Observation Value Provider HRA, CV Assess/Plan, Angina (inactive) Management Plan continue current therapy Tremaine Marti MD HRA, CV Assess/Plan, Angina (inactive) Management Plan continue current therapy Tremaine Marti MD HRA, CV Assess/Plan, Angina (inactive) Management Plan continue current therapy Tremaine Marti MD HRA, CV Assess/Plan, Angina (inactive) Management Plan continue current therapy Hallie SANTOS HRA, CV Assess/Plan, Angina (inactive) Management Plan continue current therapy Tatyana Wadejulita BORDEN HRA, CV Assess/Plan, Angina (inactive) Management Plan continue current therapy Tatyanateri Wadejulita BORDEN HRA, CV Assess/Plan, Angina (inactive) Management Plan continue current therapy Tremaine Marti MD HRA, CV Assess/Plan, Angina (inactive) Management Plan continue current therapy Tremaine Marti MD HRA, CV Assess/Plan, Angina (inactive) Management Plan continue current therapy Leeann Ch NP HRA, CV Assess/Plan, Angina (inactive) Management Plan continue current therapy Tremaine Marti MD HRA, CV Assess/Plan, Angina (inactive) Management Plan continue current therapy Tremaine Marti MD HRA, CV Assess/Plan, Angina (inactive) Management Plan antianginal therapy Tremaine Marti MD HRA, CV Assess/Plan, Angina (inactive) Management Plan continue current therapy Tremaine Marti MD HRA, CV Assess/Plan, Angina (inactive) Management Plan continue current therapy Tremaine Marti MD FAMILY HISTORY Family Member Condition Full Sister Family History of Di abetes: Full Brother Family History of Co ronary Artery Disease: Full Brother Family History of Di abetes: Mother Family History of Co ronary Artery Disease: Mother Family History of Di abetes: INSURANCE PROVIDERS Payer name Policy type / Coverage type [place] [employer] [facility] [id number] ADVANCE DIRECTIVES Name Date DISCUSSED - NO DECISION MADE TREATMENT PLAN Date Name Performer [id number],C,PAP 30 Tremaine Marti MD [id number],C,79 Tremaine mccarty MD [id number],C,ef 45 peo 867 Tremaine Marti MD [id number],C,5.6 Tremaine caldwell MD [id number],C, T he patient is between 55-77 years old and has smoked at least 30 pack years. The patient is either a current smoker or has quit within the past 15 years. T he patient is recommended to have low dose CT scan for lung cancer screening. Has been counseled regarding the importance of tobacco cessation and abstinence. Shared decision making during this office visit included discussion of the benefits and harms of screening, possible future recommendations of follow-up diagnostic testing, and total amount of radiation exposure. The patient was recommended to have annual low dose CT scan for lung cancer screening and is willing to undergo diagnosis and treatment. will repeat low dose CT [facility] [id number],C,compliant wit h cpap [facility] [id number],C, 1 . Normal LOULOU's and arterial flow of the lower extremities bilaterally. 2 . Mild artherosclerosis visualized in the posterior tibial arteries bilaterally. [facility] [id number],C, e f 45 pro 468 will repeat pBNP w ill repeat ECHO 11/2022 [facility] [id number],C,C HOL: 152 (08/28/2017) HDL: 29 (08/28/2017) The following medications were removed from the medication list: Vascepa 1 Gram Capsule (Icosapent ethyl) ..... Take 2 capsules twice a day Rosuvastatin 20 Mg Tablet (Rosuvastatin) ..... Take 1 tablet daily Slo-niacin 500 Mg Tablet Extended Release (Niacin) ..... 3 tablet every night His updated medication list for this problem includes: Rosuvastatin 20 Mg Tablet (Rosuvastatin) ..... Take 1 tablet by mouth once a day take 1 tablet daily Vascepa 1 Gram Capsule (Icosapent ethyl) ..... Take 2 capsule by mouth twice a day take 2 capsules twice a day [facility] [id number],C, n eg pft 03/2021 will repeat [facility] [id number],C,t elesentry 01/2022: rare V ectopics, rare SV ectopics, isolated beats. 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 Advised to wear compression socks Tatyana Wadejulita BORDEN [id number],C, b [facility] Tatyana Wadejulita BORDEN [id number],C,l ow dose CT 09/2021 no suspicious pulm nodules. continues to smoke 1ppd/40yrs. encouraged cessation will recheck annually Tatyana Hawk NP [id number],S, Tremaine louis MD [id number],B,5 .5 5 .9 Tremaine Marti MD [id number],S, f ixed nuc 2014 andreia open, lad 100%, svg to cx closed but cx normal, svg to rca 70% but only mild dz in rca, nuc mildlly abnl ischemia in rca, for complete Tremaine Marti MD [id number],B, b naldochi [facility] Tremaine Marti MD [id number],S, n eg uacrt n ml ioron and aaa Tremaine Marti MD [id number],S, V enous 08/13/2019 shows that the patient has reflux but he currently doesn't have much swelling or discomfort. Advised to wear compression socks ' Tremaine Marti MD [id number],S, Tremaine louis MD [id number],S, Tremaine louis MD [id number],STremaine MD [id number],S, T he patient is between 55-77 years old and has smoked at least 30 pack years. The patient is either a current smoker or has quit within the past 15 years. T he patient is recommended to have low dose CT scan for lung cancer screening. Has been counseled regarding the importance of tobacco cessation and abstinence. Shared decision making during this office visit included discussion of the benefits and harms of screening, possible future recommendations of follow-up diagnostic testing, and total amount of radiation exposure. The patient was recommended to have annual low dose CT scan for lung cancer screening and is willing to undergo diagnosis and treatment. Tremaine Marti MD [id number],S, e f 45 pro 468 Tremaine Marti MD [id number],C,ef 45 pro 468 Tremaine Marti MD [id number],S, f ixed nuc 2014 andreia open, lad 100%, svg to cx closed but cx normal, svg to rca 70% but only mild dz in rca, nuc mildlly abnl ischemia in rca, for complete Tremaine Marti MD [id number],B, Tremaine louis MD [id number],S, V francisco 08/13/2019 shows that the patient has reflux but he currently doesn't have much swelling or discomfort. Advised to wear compression socks ' Tremaine Marti MD [id number],S, T he patient is between 55-77 years old and has smoked at least 30 pack years. The patient is either a current smoker or has quit within the past 15 years. T he patient is recommended to have low dose CT scan for lung cancer screening. Has been counseled regarding the importance of tobacco cessation and abstinence. Shared decision making during this office visit included discussion of the benefits and harms of screening, possible future recommendations of follow-up diagnostic testing, and total amount of radiation exposure. The patient was recommended to have annual low dose CT scan for lung cancer screening and is willing to undergo diagnosis and treatment. Tremaine Marti MD [id number],S,. 4 pvc .7 pvc and 10 beat svt 136 and some susi due to bb Tremaine Marti MD [id number],S, m idl mr and tr Tremaine Marti MD [id number],S, n eg uacrt n ml ioron and aaa Tremaine Marti MD [id number],S,5.9 Tremaine Se javi BELL [id number],S,45 nml pro Anderson haley Marti MD [id number],S, Tremaine louis MD [id number],B, S top aldactone. now on epeleonies Tremaine Marti MD [id number],B,neg pft Anabella Marti MD :ef 30 Tremaine Marti MD Cardiology:5.8 H is updated medication list for this problem includes: Toujeo Max U-300 Solostar 300 Unit/ml (3 Ml) Insulin Pen (Insulin glargine u-300 conc) ..... Inject 80 units under the skin once daily in the morning Ozempic 2 Mg/dose (8 Mg/3 Ml) Pen Injector (Semaglutide) ..... Inject 2 mg subcutaneously once a week Valsartan 40 Mg Tablet (Valsartan) ..... Take 1 tablet by mouth once a day Farxiga 10 Mg Tablet (Dapagliflozin propanediol) ..... Take 1 tablet by mouth once a day Metformin 1,000 Mg Tablet (Metformin) ..... Take 1 tablet twice a day Aspirin 81 Mg Tablet,delayed Release (dr/ec) (Aspirin) ..... 1 tablet by mouth once a day Tremaine Marti MD Cardiology: T he patient is recommended to have low dose CT scan for lung cancer screening. Has been counseled regarding the importance of tobacco cessation and abstinence. Shared decision making during this office visit included discussion of the benefits and harms of screening, possible future recommendations of follow-up diagnostic testing, and total amount of radiation exposure. The patient was recommended to have annual low dose CT scan for lung cancer screening and is willing to undergo diagnosis and treatment. T he patient is between 50-77 years old and has smoked at least 20 pack years. The patient is either a current smoker or has quit within the past 15 years. Tremaine Marti MD Cardiology: f ixed pet 24, fixed n uc 18, 2 015 andreia opend lad 100%, svg to cx closed by cx normal , svg to rca 70% but only mid dz in rca for compolete His updated medication list for this problem includes: Coreg 25 Mg Tablet (Carvedilol) ..... Take 1 tablet by mouth twice a day Aspirin 81 Mg Tablet,delayed Release (dr/ec) (Aspirin) ..... 1 tablet by mouth once a day Tremaine Marti MD Cardiology Tremaine Marti MD Cardiology: H is updated medication list for this problem includes: Coreg 25 Mg Tablet (Carvedilol) ..... Take 1 tablet by mouth twice a day Aspirin 81 Mg Tablet,delayed Release (dr/ec) (Aspirin) ..... 1 tablet by mouth once a day H gb: 15.0 (03/30/2024) HCT: 46.8 (03/30/2024) Platelets: 144 X10E3/UL (03/30/2024) R BC: 5.23 X10E6/UL (03/30/2024) WBC: 7.8 X10E3/UL (03/30/2024) BUN: 18 (03/31/2024) Creat: 1.18 (03/31/2024) Glucose: 152 (03/31/2024) N a+: 142 (03/31/2024) K+: 4.6 (03/31/2024) Cl: 105 (03/31/2024) Anion Gap: 13.0 (07/26/2016) Calcium: 9.2 (03/31/2024) Tremaine Marti MD Cardiology Tremaine Marti MD Cardiology: 7 9 Tremaine Marti MD Cardiology:27 por 914 befroe biv Tremaine Marti MD Cardiology Tremaine Marti MD Cardiology:mod Tremaine Marti MD Cardiology:no signs of acute overload/decompensation c ontinue present med regimen Hallie Ventimiglia PIPELINER Cardiology Tremaine Marti MD Cardiology Tremaine Marti MD Cardiology Tremaine Marti MD Cardiology Tremaine Marti MD Cardiology:5.9 5 .7 Tremaine Marti MD Cardiology:neg tsh n eg aaa Tremaine Marti MD Cardiology:pro 914 e f 27 Tremaine Marti MD Cardiology: f ixed pet 24, fixed n uc 18, 2 015 andreia opend lad 100%, svg to cx closed by cx normal , svg to rca 70% but only mid dz in rca for comppaulye Tremaine Marti MD Cardiology:The patie nt is recommended to have low dose CT scan for lung cancer screening. Has been counseled regarding the importance of tobacco cessation and abstinence. Shared decision making during this office visit included discussion of the benefits and harms of screening, possible future recommendations of follow-up diagnostic testing, and total amount of radiation exposure. The patient was recommended to have annual low dose CT scan for lung cancer screening and is willing to undergo diagnosis and treatment. T he patient is between 50-77 years old and has smoked at least 20 pack years. The patient is either a current smoker or has quit within the past 15 years. Tremaine Marti MD Cardiology: f ixed pet 24, fixed n uc 18, 2 015 andreia opend lad 100%, svg to cx closed by cx normal , svg to rca 70% but only mid dz in rca for hoang Umana MD Cardiology: t elesentry 01/2022: rare V ectopics, rare SV ectopics, isolated beats. average 72, max 80, min 61 Luis Umana MD Cardiology:As above. Multilead ICD with septal pacing. The patient is recommended to have ICD implanted. The risks and benefits have been discussed with the patient in this shared decision making encounter. A copy of the following evidence based decision tool on ICD has been given to the patient. [email or web address]-[email or web address] Luis Umana MD Cardiology:With redu perla EF (<35%) for over 3 months on GDMT and with LBBB. W ill place ICD with septal pacing. If no improvemet after a month or two we will consider CCM. Luis Umana MD Cardiology Tremaine Marti MD Cardiology Tremaine Marti MD Cardiology Tremaine Marti MD Cardiology: V francisco 08/13/2019 shows that the patient has reflux but he currently doesn't have much swelling or discomfort. Advised to wear compression socks Tremaine Marti MD Cardiology:The raleighe nt is between 50-77 years old and has smoked at least 20 pack years. The patient is either a current smoker or has quit within the past 15 years. T he patient is recommended to have low dose CT scan for lung cancer screening. Has been counseled regarding the importance of tobacco cessation and abstinence. Shared decision making during this office visit included discussion of the benefits and harms of screening, possible future recommendations of follow-up diagnostic testing, and total amount of radiation exposure. The patient was recommended to have annual low dose CT scan for lung cancer screening and is willing to undergo diagnosis and treatment. Tremaine Marti MD Cardiology:5.7 Tremaine Marti MD Cardiology:fixed pet 24, fixed n uc 18, 2 015 andreia opend lad 100%, svg to cx closed by cx normal , svg to rca 70% but only mid dz in rca for compolete Tremaine Marti MD Cardiology:pro 914, clasae 3, ef 27, awaigitin ccm or aiicd p t is now class 3 Tremaine Marti MD Cardiology: n ml ioron and aaa Tremaine Marti MD Cardiology: 7 9 Tremaine Marti MD Cardiology Tremaine Marti MD :pt is now class 3 Tremaine Marti MD :914 Tremaine Marti MD Cardiology:The patie nt is using CPAP on a regular basis. The patient has been benefiting from therapy and should continue use. [facility] Cardiology:per pavan wallace reports last Hgb A1C was <6% H is updated medication list for this problem includes: Ozempic 1 Mg/dose (4 Mg/3 Ml) Pen Injector (Semaglutide) ..... Inject 1 mg subcutaneously once a week Valsartan 40 Mg Tablet (Valsartan) ..... Take 1 tablet by mouth once a day Farxiga 10 Mg Tablet (Dapagliflozin propanediol) ..... Take 1 tablet by mouth once a day Metformin 1,000 Mg Tablet (Metformin) ..... Take 1 tablet twice a day Toujeo Max U-300 Solostar 300 Unit/ml (3 Ml) Insulin Pen (Insulin glargine u-300 conc) Aspirin 81 Mg Tablet,delayed Release (dr/ec) (Aspirin) ..... 1 tablet by mouth once a day [facility] Cardiology:will get updated labs from PCP H is updated medication list for this problem includes: Vascepa 1 Gram Capsule (Icosapent ethyl) ..... Take 2 capsule by mouth twice a day Rosuvastatin 20 Mg Tablet (Rosuvastatin) ..... Take 1 tablet by mouth once a day [facility] Cardiology:no chest pain or SOB, but has known CAD with CABG in past p shanta stress test as noted above H is updated medication list for this problem includes: Coreg 25 Mg Tablet (Carvedilol) ..... Take 1 tablet by mouth twice a day Aspirin 81 Mg Tablet,delayed Release (dr/ec) (Aspirin) ..... 1 tablet by mouth once a day [facility] Cardiology:no obviou s signs of volume overload at this time C ontinue present medication regimen add kerrendia in setting of CMP and DM [facility] Cardiology:Previous echo showed EF of 40% has declined to 27% on echo this week P atient denies any new chest pain or SOB R emains on GDMT and is compliant w ill do stress to r/o ischemia, if negative will be referred for septal pacing in setting of CMP and LBBB [facility] Cardiology:cessation encouraged Hallie Ho [facility] needs biv aicd/petvs caht:ef 27% Tremaine Marti MD Cardiology Luis Umana MD Cardiology Luis Umana MD Cardiology:Mild C CM should mitigate Luis Umana MD Cardiology:Last EF 4 5% S hould benefit from CCM P atient agreeable. Luis Umana MD Cardiology:continues to smoke 0.5-1ppd. encouraged to cut down by half until able to quit. will check Low Dose CT Tatyana Hawk NP Cardiology:A1c 5.6 The following medications were removed from the medication list: Ozempic 1 Mg/dose (4 Mg/3 Ml) Pen Injector (Semaglutide) ..... Inject 1 mg under the skin once weekly, reduces risk of major cv events His updated medication list for this problem includes: Ozempic 1 Mg/dose (4 Mg/3 Ml) Pen Injector (Semaglutide) ..... Weekly Valsartan 40 Mg Tablet (Valsartan) ..... Take 1 tablet daily Farxiga 10 Mg Tablet (Dapagliflozin) ..... Take 1 tablet daily. Metformin 1,000 Mg Tablet (Metformin) ..... Take 1 tablet twice a day Toujeo Max U-300 Solostar 300 Unit/ml (3 Ml) Insulin Pen (Insulin glargine u-300 conc) Aspirin 81 Mg Tablet,delayed Release (dr/ec) (Aspirin) ..... 1 tablet by mouth once a day Tatyana Hawk NP Cardiology: e f 45 pro 867 w ill recheck echo 12/2023. will arrange for [facility] for CHF monitoring. Tatyana Hawk NP Cardiology: n eg uacrt n ml ioron and aaa Tatyana Hawk NP Cardiology:CHOL: 152 (08/28/2017) LDL: 72 (08/28/2017) HDL: 29 (08/28/2017) T (08/28/2017) His updated medication list for this problem includes: Rosuvastatin 20 Mg Tablet (Rosuvastatin) ..... Take 1 tablet by mouth once a day take 1 tablet daily Vascepa 1 Gram Capsule (Icosapent ethyl) ..... Take 2 capsule by mouth twice a day take 2 capsules twice a day Tatyana Hawk NP Cardiology: 7 9 Tatyana Hawk NP Cardiology: E CHO: 11/2022 PAP 30, mild TR Tatyana Hawk NP :PAP 30 Tremaine Marti MD :79 Tremaine Marti MD :ef 45 peo 867 Tremaine Marti MD :5.6 Tremaine Marti MD Cardiology: T he patient is between 55-77 years old and has smoked at least 30 pack years. The patient is either a current smoker or has quit within the past 15 years. T he patient is recommended to have low dose CT scan for lung cancer screening. Has been counseled regarding the importance of tobacco cessation and abstinence. Shared decision making during this office visit included discussion of the benefits and harms of screening, possible future recommendations of follow-up diagnostic testing, and total amount of radiation exposure. The patient was recommended to have annual low dose CT scan for lung cancer screening and is willing to undergo diagnosis and treatment. will repeat low dose CT Tatyana Hawk NP Cardiology:compliant with cpap Maritza Hawk NP Cardiology: 1 . Normal LOULOU's and arterial flow of the lower extremities bilaterally. 2 . Mild artherosclerosis visualized in the posterior tibial arteries bilaterally. Tatyana Hawk NP Cardiology: e f 45 pro 468 will repeat pBNP w ill repeat ECHO 11/2022 Tatyana Hawk NP Cardiology:CHOL: 152 (08/28/2017) HDL: 29 (08/28/2017) The following medications were removed from the medication list: Vascepa 1 Gram Capsule (Icosapent ethyl) ..... Take 2 capsules twice a day Rosuvastatin 20 Mg Tablet (Rosuvastatin) ..... Take 1 tablet daily Slo-niacin 500 Mg Tablet Extended Release (Niacin) ..... 3 tablet every night His updated medication list for this problem includes: Rosuvastatin 20 Mg Tablet (Rosuvastatin) ..... Take 1 tablet by mouth once a day take 1 tablet daily Vascepa 1 Gram Capsule (Icosapent ethyl) ..... Take 2 capsule by mouth twice a day take 2 capsules twice a day Tatyana Hawk NP Cardiology: n eg pft 03/2021 will repeat Tatyana Hawk NP Cardiology:telesentr y 01/2022: rare V ectopics, rare SV ectopics, isolated beats. average 72, max 80, min 61 Tatyana Hawk NP Cardiology: V enous US 08/13/2019 shows that the patient has reflux but he currently doesn't have much swelling or discomfort. Advised to wear compression socks Tatyana Hawk NP Cardiology: b naldo coleman alactraúl Hawk NP Cardiology:low dose CT 09/2021 no suspicious pulm nodules. continues to smoke 1ppd/40yrs. encouraged cessation will recheck annually Tatyana Hawk NP Cardiology Tremaine Marti MD Cardiology:5.5 5 .9 Tremaine Marti MD Cardiology: f ixed nuc 2014 andreia open, lad 100%, svg to cx closed but cx normal, svg to rca 70% but only mild dz in rca, nuc mildlly abnl ischemia in rca, for complete Tremaine Marti MD Cardiology: b naldoandrews alactgone Tremaine Marti MD Cardiology: n eg uacrt n ml ioron and aaa Tremaine Marti MD Cardiology: V enous US 08/13/2019 shows that the patient has reflux but he currently doesn't have much swelling or discomfort. Advised to wear compression socks ' Tremaine Marti MD Cardiology Tremaine Marti MD Cardiology Tremaine Marti MD Cardiology Tremaine Marti MD Cardiology: T he patient is between 55-77 years old and has smoked at least 30 pack years. The patient is either a current smoker or has quit within the past 15 years. T he patient is recommended to have low dose CT scan for lung cancer screening. Has been counseled regarding the importance of tobacco cessation and abstinence. Shared decision making during this office visit included discussion of the benefits and harms of screening, possible future recommendations of follow-up diagnostic testing, and total amount of radiation exposure. The patient was recommended to have annual low dose CT scan for lung cancer screening and is willing to undergo diagnosis and treatment. Tremaine Marti MD Cardiology: e f 45 pro 468 Tremaine Marti MD :ef 45 pro 468 Tremaine Marti MD Cardiology: f ixed nuc 2014 andreia open, lad 100%, svg to cx closed but cx normal, svg to rca 70% but only mild dz in rca, nuc mildlly abnl ischemia in rca, for complete Tremaine Marti MD Cardiology Tremaine Marti MD Cardiology: Demetrice singh 08/13/2019 shows that the patient has reflux but he currently doesn't have much swelling or discomfort. Advised to wear compression socks ' Tremaine Marti MD Cardiology: T he patient is between 55-77 years old and has smoked at least 30 pack years. The patient is either a current smoker or has quit within the past 15 years. T he patient is recommended to have low dose CT scan for lung cancer screening. Has been counseled regarding the importance of tobacco cessation and abstinence. Shared decision making during this office visit included discussion of the benefits and harms of screening, possible future recommendations of follow-up diagnostic testing, and total amount of radiation exposure. The patient was recommended to have annual low dose CT scan for lung cancer screening and is willing to undergo diagnosis and treatment. Tremaine Marti MD Cardiology:.4 pvc .7 pvc and 10 beat svt 136 and some susi due to bb Tremaine Marti MD Cardiology: m idl mr and tr Tremaine Marti MD Cardiology: n eg uacrt n ml ioron and aaa Tremaine Marti MD Cardiology:5.9 Tremaine Marti MD Cardiology:45 nml pro Tremaine mccarty MD Cardiology Tremaine Marti MD Cardiology: S top aldactone. now on epeleonies Tremaine aMrti MD Cardiology:neg pft Tremaine Marti MD Cardiology Follow up:weight loss encouraged Leeann Ch NP Cardiology Follow up:Not in exac erbation. Leeann Ch NP Cardiology Follow up :Stop aldactone. Start Eplerenone. Leeann Ch NP Cardiology follow up : H is updated medication list for this problem includes: Vascepa 1 Gm Oral Capsule (Icosapent ethyl) ..... Two twice a day Crestor 20 Mg Oral Tablet (Rosuvastatin calcium) ..... One tab. daily Slo-niacin 500 Mg Oral Tablet Extended Release (Niacin) ..... 3 tabs at bed time Tremaine Marti MD Cardiology follow up : H is updated medication list for this problem includes: Ozempic (1 Mg/dose) 2 Mg/1.5ml Subcutaneous Solution Pen-injector (Semaglutide) ..... Inject 1mg subcutaneously once weekly reduces risk of major cv events Aspirin Adult Low Dose 81 Mg Oral Tablet Delayed Release (Aspirin) ..... One tab by mouth daily Entresto 24-26 Mg Oral Tablet (Sacubitril-valsartan) ..... Twice a day Tresiba Flextouch Solution Pen-injector (Insulin degludec sopn) ..... 95 units in am Metformin Hcl 1000 Mg Oral Tablet (Metformin hcl) ..... One tablet twice daily Glipizide 10 Mg Oral Tablet (Glipizide) ..... One tablet twice daily Labs Reviewed: H gBA1c: 7.4 (07/26/2016) Creat: 1.00 (08/28/2017) Tremaine Marti MD Cardiology follow up : i nsuranc woujld not pay for aleksey musa Tremaine Marti MD Cardiology follow up Tremaine brenner MD Cardiology follow up Tremaine brenner MD Cardiology follow up : H is updated medication list for this problem includes: Vascepa 1 Gm Oral Capsule (Icosapent ethyl) ..... Two twice a day Crestor 20 Mg Oral Tablet (Rosuvastatin calcium) ..... One tab. daily Slo-niacin 500 Mg Oral Tablet Extended Release (Niacin) ..... 3 tabs at bed time C HOL: 152 (08/28/2017) HDL: 29 (08/28/2017) Tremaine Marti MD Cardiology follow up : . 7 pvc and 10 beat svt 136 and some susi due to bb Tremaine Marti MD Cardiology follow up Tremaine brenner MD Cardiology follow up : V enous 08/13/2019 shows that the patient has reflux but he currently doesn't have much swelling or discomfort. Advised to wear compression socks ' Tremaine Marti MD Cardiology follow up : T he patient is between 55-77 years old and has smoked at least 30 pack years. The patient is either a current smoker or has quit within the past 15 years. T he patient is recommended to have low dose CT scan for lung cancer screening. Has been counseled regarding the importance of tobacco cessation and abstinence. Shared decision making during this office visit included discussion of the benefits and harms of screening, possible future recommendations of follow-up diagnostic testing, and total amount of radiation exposure. The patient was recommended to have annual low dose CT scan for lung cancer screening and is willing to undergo diagnosis and treatment. Tremaine Marti MD Cardiology follow up : m idl mr and tr Tremaine Marti MD Cardiology follow up : n ml pro and ef 45 Tremaine Marti MD :nml pro and ef 45 Tremaine Marti MD Cardiology Chandan Birmingham MD Cardiology Chandan Birmingham MD Cardiology:Venous US 08/13/2019 shows that the patient has reflux but he currently doesn't have much swelling or discomfort. Advised to wear compression socks ' Chandan Vinnie BELL Cardiology follow up :7.1 Tremaine Marti MD Cardiology follow up Tremaine brenner MD Cardiology follow up : f ixed nuc 2014 andreia open, lad 100%, svg to cx closed but cx normal, svg to rca 70% but only mild dz in rca, nuc mildlly abnl ischemia in rca, for complete Tremaine Marti MD Cardiology follow up :neg uacrt n ml ioron and aaa Tremaine Marti MD Cardiology follow up :212 Tremaine Marti MD Cardiology follow up :can see uq Tremaine Marti MD Cardiology follow up : m idl mr and tr Tremaine Marti MD Cardiology follow up : T he patient is between 55-77 years old and has smoked at least 30 pack years. The patient is either a current smoker or has quit within the past 15 years. T he patient is recommended to have low dose CT scan for lung cancer screening. Has been counseled regarding the importance of tobacco cessation and abstinence. Shared decision making during this office visit included discussion of the benefits and harms of screening, possible future recommendations of follow-up diagnostic testing, and total amount of radiation exposure. The patient was recommended to have annual low dose CT scan for lung cancer screening and is willing to undergo diagnosis and treatment. Tremaine Marti MD Cardiology follow up :.7 pvc and 10 beat svt 136 and some susi due to bb Tremaine Marti MD Cardiology follow up Tremaine brenner MD Cardiology follow up Tremaine brenner MD :midl mr and tr Tremaine Marti MD Cardiology: T he patient is between 55-77 years old and has smoked at least 30 pack years. The patient is either a current smoker or has quit within the past 15 years. T he patient is recommended to have low dose CT scan for lung cancer screening. Has been counseled regarding the importance of tobacco cessation and abstinence. Shared decision making during this office visit included discussion of the benefits and harms of screening, possible future recommendations of follow-up diagnostic testing, and total amount of radiation exposure. The patient was recommended to have annual low dose CT scan for lung cancer screening and is willing to undergo diagnosis and treatment. Tremaine Marti MD Cardiology:[facility] not pay for contrafvalerie musa Tremaine Marti MD Cardiology Tremaine Marti MD Cardiology: 5 60 5 88, ef 45 Tremaine Marti MD Cardiology: H is updated medication list for this problem includes: Vascepa 1 Gm Oral Capsule (Icosapent ethyl) ..... Two twice a day Crestor 20 Mg Oral Tablet (Rosuvastatin calcium) ..... One tab. daily Slo-niacin 500 Mg Oral Tablet Extended Release (Niacin) ..... 3 tabs at bed time Tremaine Marti MD Cardiology Tremaine Marti MD Cardiology: S TABLE OF 45 Tremaine Marti MD Cardiology: f ixed nuc 18 2014 andreia open, lad 100%, svg to cx closed but cx normal, svg to rca 70% but only mild dz in rca, nuc mildlly abnl ischemia in rca, for complete Tremaine Marti MD Cardiology Tremaine Marti MD Cardiology: n ml ioron and aaa Tremaine Marti MD Cardiology follow up :will chrng erxCHOL: 152 (08/28/2017) HDL: 29 (08/28/2017) T he following medications were removed from the medication list: Slo-niacin 500 Mg Oral Tablet Extended Release (Niacin) ..... 3 a day Simvastatin 40 Mg Oral Tablet (Simvastatin) ..... One tablet daily His updated medication list for this problem includes: Vascepa 1 Gm Oral Capsule (Icosapent ethyl) ..... Two twice a day Crestor 40 Mg Oral Tablet (Rosuvastatin calcium) ..... One tab. daily Slo-niacin 500 Mg Oral Tablet Extended Release (Niacin) ..... 3 tabs at bed time Tremaine Marti MD Cardiology follow up:will rx Raad Marti MD Cardiology follow up:will try co ntrave Tremaine Marti MD Cardiology follow up:6.2 uaecr 5 8 Tremaine Marti MD Cardiology follow up Tremaine brenner MD Cardiology follow up :The patient is between 55-77 years old and has smoked at least 30 pack years. The patient is either a current smoker or has quit within the past 15 years. T he patient is recommended to have low dose CT scan for lung cancer screening. Has been counseled regarding the importance of tobacco cessation and abstinence. Shared decision making during this office visit included discussion of the benefits and harms of screening, possible future recommendations of follow-up diagnostic testing, and total amount of radiation exposure. The patient was recommended to have annual low dose CT scan for lung cancer screening and is willing to undergo diagnosis and treatment. Tremaine Marti MD Cardiology follow up :fixed nuc 2014 andreia open, lad 100%, svg to cx closed but cx normal, svg to rca 70% but only mild dz in rca, nuc mildlly abnl ischemia in rca, for complete Tremaine Marti MD Cardiology follow up : n ml ioron and aaa Tremaine Marti MD Cardiology follow up :560 5 88, ef 45 Tremaine Marti MD Cardiology follow up : S TABLE OF 45 Tremaine Marti MD Cardiology:nml ioron Tremaine brenner MD Cardiology:588, ef 45 Tremaine mccarty MD Cardiology:did not want surgery, adalberto try diet pills Tremaine Marti MD Cardiology:Your [place] ent has a Category 1 level of evidence and consensus according NCCN guidelines. All screening and follow-up chest CT scans should be performed at low dose (100?120 kVp and 40?60 mAs or less), unless evaluating mediastinal abnormalities or lymph nodes, where standard-dose CT with IV contrast might be appropriate. There should be a systematic process for appropriate follow-up. I n candidates for screening, shared patient/physician decision making is recommended, including a discussion of benefits/risks. Shared decision-making aids may assist in determining if screening should be performed. B efore screening, the patient will have been counseled regarding the importance of tobacco cessation and abstinence. Shared decision making during this office visit included discussion of the benefits and harms of screening, possible future recommendations of follow-up diagnostic testing, and total amount of radiation exposure. The patient was recommended to have annual low dose CT scan for lung cancer screening and is willing to undergo diagnosis and treatment moving forward. S ession Summary: & #13;Q: How old is the patient? A: Between 50-74 Q: What is the patient's history of smoking? A: Greater than 30 pack-year history of smoking Q: Has your patient been significantly exposed to elevated levels of radon? A: No Q: Has your patient been significantly exposed to diesel fumes, asbestos, coal smoke, soot, silica, cadmium, arsenic, beryllium, chromium, nickel? A: Yes Q: Does your patient have a history of lung cancer, lymphomas, cancers of the head and neck, or smoking-related cancers? A: No Q: Does your patient have a history of lung cancer in first-degree relatives? A: Yes Q: Does your patient have a history of COPD or pulmonary fibrosis? A: Yes Session Data: score: 6 Tremaine Marti MD Cardiology:588, ef 45 Tremaine mccarty MD Cardiology: S TABLE OF 45 Tremaine Marti MD Cardiology:efr 45 no biv Tremaine Marti MD Cardiology:COULD OT AFFOR DIET PILL, WILL SEE JONIRIOMag Marti MD Cardiology: i ma open, lad 100%, svg to cx closed but cx normal, svg to rca 70% but only mild dz in rca, nuc mildlly abnl ischemia in rca, for complete Tremaine Marti MD Cardiology:TOLD TO T LETTY B12 AND IRON, MAY NEED INFSUION Tremaine Marti MD Cardiology: H is updated medication list for this problem includes: Slo-niacin 500 Mg Oral Cr-tabs (Niacin) ..... 3 tabs at bed time Simvastatin 40 Mg Tabs (Simvastatin) ..... One tablet daily Tremaine Marti MD Cardiology:PRO 367 2014, CAN TRY ENTRESTO Tremaine Marti MD Cardiology:Mild Obst ructive Airways Disease N o significant restriction M inimal Diffusion Defect Tremaine Marti MD Cardiology:STABLE OF 45 Tremaine rick MD Cardiology Tremaine Marti MD Cardiology:DOES NOT WANT MEDIFST BUT WILL TRY DIET PILL Tremaine Marti MD Cardiology:1. Normal LOULOU's and arterial flow of the lower extremities bilaterally. 2 . Mild artherosclerosis visualized in the posterior tibial arteries bilaterally. Tremaine Marti MD Cardiology:. Abnorma l JEAN CLAUDE study with LVEF of 45% 2 . The right ventricle and atria appear to be normal in size. 3 . Mild global hypokinesis . ................................................... ...............Ramón Guy MD June 07, 2015 6:00 PM 1 . Technically difficult study, limited views secondary to poor acoustic windows. Interpretation is b ased on available limited views. Severe global left ventricular systolic hypokinesis. Moderate e nlargement of left ventricular chamber. Mild concentric left ventricular hypertrophy. There is E to A w ave reversal consistent with impaired LV relaxation. Left ventricular ejection fraction is estimated at 3 0 %. 2 . There is moderate enlargement of the left atrium. 3 . There is mild enlargement of right atrium. 4 . No significant valvular abnormalities. 5 . Not well visualized. 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 lifting engineer update:see carolee rick MD slab lifting engineer update:andreia open, lad 100%, svg to cx closed but cx normal, svg to rca 70% but only mild dz in rca, nuc mildlly abnl ischemia in rca Tremaine Marti MD Date Name Bariatric Surgery - [facility] Low Dose Lung CT Low Dose Lung CT Complete Echo PARTIAL THROMBOPLAST IN TIME, ACTIVATED URINALYSIS, COMPLETE W/REFLEX TO CULTURE PROTHROMBIN TIME WIT H INR CBC (INCLUDES DIFF/P LT) COMPREHENSIVE METABO LIC PANEL, W/EGFR DLCO - 92915 FRC - 72885 FVC - 97318 ZOLL HFMS (HrtFailrM ngmtSys) Complete Echo Low Dose Lung CT Stress Cardiac PET-C T PROBNP, N TERMINAL BASIC METABOLIC PANE L W/EGFR Complete Echo ZOLL HFMS (HrtFailrM ngmtSys) Complete Echo Stress Cardiac PET-C T Low Dose Lung CT Complete Echo DLCO - 63397 FRC - 11147 FVC - 13899 Microalb/Creatinine Urine, Random LIPID PANEL BASIC METABOLIC PANE L W/EGFR PROBNP, N TERMINAL Low Dose Lung CT Microalb/Creatinine Urine, Random Holter Monitor 24 Hr Complete Echo Low Dose Lung CT Complete Echo RPM (remote patient monitoring) C-REACTIVE PROTEIN PROBNP, N TERMINAL BASIC METABOLIC PANE L W/EGFR Low Dose Lung CT Low Dose Lung CT DLCO - 81498 FRC - 18076 FVC - 75174 Holter Monitor 24 Hr Complete Echo Complete Echo Low Dose Lung CT DLCO - 01082 FRC - 25158 FVC - 76865 Holter Monitor 24 Hr URINALYSIS, RANDOM, MICROALB/CREATININE LIPID PANEL THYROID PANEL WITH T SH, 3RD GENERATION PROBNP, N TERMINAL COMPREHENSIVE METABO LIC PANEL, W/EGFR COMPREHENSIVE METABO LIC PANEL, W/EGFR URINALYSIS, RANDOM, MICROALB/CREATININE PROBNP, N TERMINAL Venous Doppler Bilat eral LE - Reflux THYROID PANEL WITH T SH, 3RD GENERATION LIPID PANEL Holter Monitor [address] DLCO - 65059 FRC - 19561 FVC - 47387 DLCO - 64081 FRC - 30138 FVC - [address] Complete Echo URINALYSIS, RANDOM, MICROALB/CREATININE PROBNP, N TERMINAL COMPREHENSIVE METABO LIC PANEL, W/EGFR LIPID PANEL STR - Adenosine LIPID PANEL COMPREHENSIVE METABO LIC PANEL, W/EGFR Complete Echo PROBNP, N TERMINAL DLCO - 85783 FRC - 25317 FVC - 83150 URINALYSIS, RANDOM, MICROALB/CREATININE Low Dose Lung CT CBC (INCLUDES DIFF/P LT) LIPID PANEL COMPREHENSIVE METABO LIC PANEL W/EGFR PROBNP, N TERMINAL IRON AND TOTAL IRON BINDING CAPACITY FERRITIN Complete Echo DLCO - 48262 FRC - 44118 FVC - 91815 COMPREHENSIVE METABO LIC PANEL W/EGFR PROBNP, N TERMINAL DLCO - 79351 FRC - 60441 FVC - 18593 Complete Echo Arterial Duplex Bi-L ower EX DLCO - 78044 FRC - 46631 FVC - 72224 MUGA (LVEF) Complete Echo Cardiac Cath - L/R - GC Full PFT Aortic Abdominal Ult rasound Carotid Duplex Bilat eral Complete Echo HISTORY OF PROCEDURES Procedure Date Procedure Name Provider Procedure Notes S tatus Counseling LDCT Tremaine Marti MD com pleted EKG Tremaine Marti MD complete d Counseling LDCT Tremaine Marti MD sep 05 com pleted Complex e/m visit add on Tremaine Marti MD completed Complex e/m visit add on Tremaine Marti MD completed Counseling LDCT Tremaine Marti MD aug com pleted Complex e/m visit add on Tremaine Marti MD completed Counseling LDCT Tremaine Marti MD com pleted Spirometry Tremaine Marti MD complete d FVC / MVV with bronchodilator - 01128 Termaine Marti MD completed FRC - 00108 Tremaine Marti MD complet ed SpO2 w/o 6min walk/titration Tremaine Marti MD completed SVC - 01874 Tremaine Marti MD complet ed DLCO - 15233 Tremaine Marti MD comple zaid Counseling LDCT Tremaine Marti MD 09/2022 com pleted Counseling LDCT Tremaine Marti MD late feb com pleted EKG Tremaine Marti MD complete d Counseling LDCT Tremaine Marti MD feb com pleted Spirometry Tremaine Marti MD complete d FVC / MVV with bronchodilator - 73975 Tremaine Marti MD completed FRC - 06288 Tremaine Marti MD complet ed SpO2 w/o 6min walk/titration Tremaine Marti MD completed SVC - 20424 Tremaine Marti MD complet ed DLCO - 88165 Tremaine Marti MD comple zaid Gera, 24 or 48 Tremaine Marti MD co mpleted Counseling LDCT Tremaine Marti MD feb com pleted Counseling LDCT Tremaine Marti MD feb com pleted EKG Tremaine Marti MD complete d FVC / MVV with bronchodilator - 04187 Tremaine Marti MD completed BLOOD COUNT HEMOGLOBIN Tremaine Marti MD completed FRC - 83809 Tremaine Marti MD complet ed SpO2 w/o 6min walk/titration Tremaine Marti MD completed DLCO - 25435 Tremaine Marti MD comple zaid Counseling LDCT Tremaine Marti MD com pleted FVC / MVV with bronchodilator - 19943 Tremaine Marti MD completed BLOOD COUNT HEMOGLOBIN Tremaine Marti MD completed FRC - 68964 Tremaine Marti MD complet ed SpO2 w/o 6min walk/titration Tremaine Marti MD completed DLCO - 18429 Tremaine Marti MD comple zaid Counseling LDCT Tremaine Marti MD feb com pleted Regadenoson, 4 units Tremaine Marti MD completed Cardiolite, 2 units Tremaine Marti MD completed SPECT Images Lance Gregory MD completed Stress EKG Lance Gregory MD completed FVC / MVV with bronchodilator - 02015 Tremaine Marti MD completed FRC - 29824 Tremaine Marti MD complet ed SpO2 - 05708 Tremaine Marti MD comple zaid DLCO - 58986 Tremaine Matri MD comple zaid Counseling LDCT Tremaine Marti MD com pleted EKG Tremaine Marti MD complete d SNOMED-CT: [id number] Current Medications Documented Tremaine Marti MD completed BLOOD COUNT HEMOGLOBIN Tremaine Marti MD completed FVC - 27957 Tremaine Marti MD complet ed FRC - 77594 Tremaine Marti MD complet ed DLCO - 65982 Tremaine Marti MD comple ziad EKG Tremaine Marti MD complete d SNOMED-CT: 523331208 908141 Current Medications Documented Tremaine Marti MD completed BLOOD COUNT HEMOGLOBIN Tremaine Marti MD completed FVC - 16874 Tremaine Marti MD complet ed FRC - 55687 Tremaine Marti MD complet ed DLCO - 23615 Tremaine Marti MD comple zaid SNOMED-CT: [id number] Smoking Cessation Counseling Tremaine Marti MD completed SNOMED-CT: [id number] Physical Exam, Performed: Pulse Exam of Foot Tremaine Matri MD completed SNOMED-CT: [id number] 031797 Current Medications Documented Tremaine Marti MD completed Ultra Tag RBCs, 1 unit Tremaine Marti MD completed RUFINA Guy MD completed EKG Tremaine Marti MD complete d
--- OUTSIDE RECORDS SUMMARY | 2025-01-26 08:50 | XMS_ITS | Data Portability ---
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 Name Role Phone YARELIS CAMARGO Primary Care Provider Unavailabl e Assessment Encounter Date Assessment Date Assessment LastModified by Organization Details LastModified Time 10/17/2023 10/17/2023 Flomax 0.4 mg nightly side effects discussed in detail Secondary preventive measures for vascular disease discussed CPAP for SANTY gaining benefit Blood pressure well-controlled All diagnosis and assessment and plan of been discussed Return to clinic in 4 months [email or web address] Not available 10/17/2023 11:04:08 01/15/2024 01/15/2024 Tizanidine because of the spasmodic nature of some of the symptoms UA CT abdomen pelvis with contrast will follow-up after testing Not available 01/15/2024 21:12:56 02/19/2024 02/19/2024 he will need his stitches removed early next week healthy lifestyle care instructions quitting tobacco care instructions sounds like his staff radiation therapist has been ordering his low-dose CT chest we will look into that find out when his last colonoscopy was continue current therapy advised about ill effects of tobacco which were included but not limited to increased tumors of the aerodigestive tract increase incidence of heart attack stroke and cancer leg leads to sudden or chronic medical illness he will follow up with me in 3 months [email or web address] Not available 03/15/2024 15:52:40 06/24/2024 06/24/2024 flu shot. He just had blood work by Cardiology said we will try to retrieve the lab values. He will see me back in 3 months continue current therapy [email or web address] Not available 07/05/2024 16:48:53 10/21/2024 10/21/2024 Seems to be doing well we will obtain CBC CMP lipid A1c urinary microalbumin he needs a new sleep study we will set that up continue current therapy follow up in 4 months Tdap. Prevnar 20. [email or web address] Not available 11/29/2024 16:00:19 Plan of Treatment Reminders Order Date Submit Date Provider Last Modified By Organization Details Last Modified Time Details Appointments ANY 15 2024 09:30A M Yarelis Camargo MD Not available Not available Not available Lab PSA, total, serum or plasma 2024 025 [facility], [address], [place], [address], 10/22/2024 06:23:24 CMP, serum or plasma 2024 025 [facility], [address], [place], [address], 10/22/2024 06:23:20 lipid panel, serum 2024 025 [facility], [address], [place], [address], 10/22/2024 06:23:19 CBC w/ auto diff 2024 025 [facility], [address], [place], [address], 10/22/2024 06:23:23 HbA1c (hemoglob in A1c), blood 2024 025 [facility], [address], [place], [address], 10/22/2024 06:23:22 albumin/c reatinine , mass ratio, urine 2024 025 [facility], [address], [place], [address], 10/22/2024 06:23:18 urinalysi s, microscop ic 2023 024 [place] [facility], [address], [place], [address], 01/21/2024 13:11:49 PSA, total, serum or plasma 2023 024 [facility] [facility], [address], [place], [address], 10/18/2023 08:27:56 CBC w/ auto diff 2023 024 [facility] [facility], [address], [place], [address], 10/18/2023 08:27:55 lipid panel, serum 2023 024 [facility], [address], [place], [address], 10/18/2023 08:27:53 CMP, serum or plasma 2023 024 [facility], [address], [place], [address], 10/18/2023 08:27:54 HbA1c (hemoglob in A1c), blood 2023 024 [facility], [address], [place], [address], 10/18/2023 08:27:54 Referral None recorded. Procedures polysomno graphy, titration study (PROC) - Pt already has CPAP machine but needs new one. And last sleep study was 2003. 2024 025 [facility], [address] [facility] [address], [place], [address], 01/14/2025 10:56:25 Surgeries None recorded. Imaging CT, abdomen + pelvis, w/ contrast 2023 024 [facility] ([facility]), [address] [place], [address], 02/03/2024 11:19:35 Medication Orders tizanidin e 4 mg tablet 2023 024 [email or web address] [facility], [address] [place] [address], [id number], 01/15/2024 20:38:56 tamsulosi n 0.4 mg capsule 2023 024 [facility], [address] [place] [address], [id number], 03/18/2024 15:08:57 Patient TargetsNo targets recorded. Patient Instructions Encounter Date Encounter Id Patient Instructions Last Modified By Organization Details Last Modified Time 02/19/2024 [id number] A healthy lifestyle: care instructions [email or web address] Not available 03/15/2024 15:53:26 Quitting Tobacco : Care Instructions [email or web address] Not available 03/15/2024 15:53:26 Reason for Referral None Reported. Results Created Date Observation Date Name Description Value Unit Range Abnormal Flag Note LastModifiedBy Organization Detail LastModifiedTime 10/17/1910/18/2023 LIPID PANEL cholesterol, total 85 mg/dL 100-19 9 below low normal Not Available [facility] ([facility]) [address] [place], [address], 10/18/2023 08:27:53 10/17/1910/18/2023 LIPID PANEL triglyceride s 110 mg/dL 0-149 Not Available [facility] ([facility]) [address] [place], [address], 10/18/2023 08:27:53 10/17/1910/18/2023 LIPID PANEL HDL cholesterol 29 mg/dL >39 below low normal Not Available [facility] ([facility]) [address] [place], [address], 10/18/2023 08:27:53 10/17/19 24 10/18/2023 LIPID PANEL VLDL cholesterol wayne 21 mg/dL 5-40 Not Available [facility] ([facility]) [address] [facility] [place], [address], 10/18/2023 08:27:53 10/17/19 24 10/18/2023 LIPID PANEL LDL chol calc ([facility]) 35 mg/dL 0-99 Not Available [facility] ([facility]) [address] [place], [address], 10/18/2023 08:27:53 10/17/19 24 10/18/2023 COMP. METAB OLIC PANEL (14) glucose 57 mg/dL 70-99 below low normal Not Available [facility] ([facility]) [address] [facility], [place], [address], 10/18/2023 08:27:54 10/17/19 24 10/18/2023 COMP. METAB OLIC PANEL (14) BUN 15 mg/dL 8-27 Not Available [facility] ([facility]) [address] [place], [address], 10/18/2023 08:27:54 10/17/19 24 10/18/2023 COMP. METAB OLIC PANEL (14) creatinine 1.11 mg/dL 0.76-1 .27 Not Available [facility] ([facility]) [address] [place], [address], 10/18/2023 08:27:54 10/17/19 24 10/18/2023 COMP. METAB OLIC PANEL (14) eGFR 70 mL/mi n/1.7 3 >59 Not Available [facility] ([facility]) [address] [place], [address], 10/18/2023 08:27:54 10/17/19 24 10/18/2023 COMP. METAB OLIC PANEL (14) BUN/creatini ne ratio 14 10-24 Not Available [facility] ([facility]) [address] [place], [address], 10/18/2023 08:27:54 10/17/19 24 10/18/2023 COMP. METAB OLIC PANEL (14) sodium 143 mmol/ L 134-14 4 Not Available [facility] ([facility]) [address] [facility] [place], [address], 10/18/2023 08:27:54 10/17/19 24 10/18/2023 COMP. METAB OLIC PANEL (14) potassium 4.2 mmol/ L 3.5-5. 2 Not Available [facility] ([facility]) [address] [facility] [place], [address], 10/18/2023 08:27:54 10/17/19 24 10/18/2023 COMP. METAB OLIC PANEL (14) chloride 105 mmol/ L 96-106 Not Available [facility] ([facility]) [address] [facility] [place], [address], 10/18/2023 08:27:54 10/17/19 24 10/18/2023 COMP. METAB OLIC PANEL (14) carbon dioxide, total 23 mmol/ L 20-29 Not Available [facility] ([facility]) [address] [facility] [place], [address], 10/18/2023 08:27:54 10/17/19 24 10/18/2023 COMP. METAB OLIC PANEL (14) calcium 8.7 mg/dL 8.6-10 .2 Not Available [facility] ([facility]) [address] [facility] [place], [address], 10/18/2023 08:27:54 10/17/19 24 10/18/2023 COMP. METAB OLIC PANEL (14) protein, total 6.0 g/dL 6.0-8. 5 Not Available [facility] ([facility]) [address] [facility] [place], [address], 10/18/2023 08:27:54 10/17/19 24 10/18/2023 COMP. METAB OLIC PANEL (14) albumin 4.3 g/dL 3.8-4. 8 Not Available [facility] ([facility]) [address] [facility] [place], [address], 10/18/2023 08:27:54 10/17/19 24 10/18/2023 COMP. METAB OLIC PANEL (14) globulin, total 1.7 g/dL 1.5-4. 5 Not Available [facility] ([facility]) [address] [facility] [place], [address], 10/18/2023 08:27:54 10/17/19 24 10/18/2023 COMP. METAB OLIC PANEL (14) A/G ratio 2.5 1.2-2. 2 above high normal Not Available [facility] ([facility]) [address] [facility] [place], [address], 10/18/2023 08:27:54 10/17/19 24 10/18/2023 COMP. METAB OLIC PANEL (14) bilirubin, total 0.5 mg/dL 0.0-1. 2 Not Available [facility] ([facility]) [address] [place], [address], 10/18/2023 08:27:54 10/17/19 24 10/18/2023 COMP. METAB OLIC PANEL (14) alkaline phosphatase 53 IU/L 44-121 Not Available [facility] ([facility]) [address] [place], [address], 10/18/2023 08:27:54 10/17/19 24 10/18/2023 COMP. METAB OLIC PANEL (14) AST (SGOT) 17 IU/L 0-40 Not Available [facility] ([facility]) [address] [place], [address], 10/18/2023 08:27:54 10/17/19 24 10/18/2023 COMP. METAB OLIC PANEL (14) ALT (SGPT) 10 IU/L 0-44 Not Available [facility] ([facility]) [address] [facility], [place], [address], 10/18/2023 08:27:54 10/17/19 24 10/18/2023 HEMOG LOBIN A1C hemoglobin A1C 5.9 % 4.8-5. 6 above high normal Predi abete s: 5.7 - 6.4 Diabe antony: >6.4 Glyce sanket contr ol for adult s with diabe antony: <7.0 Not Available [facility] ([facility]) [address] [facility], [place], [address], 10/18/2023 08:27:54 10/17/19 24 10/18/2023 CBC WITH DIFFE RENTI AL/PL ATELE T WBC 7.8 x10e3 /uL 3.4-10 .8 Not Available [facility] ([facility]) [address] [facility], [place], [address], 10/18/2023 08:27:55 10/17/19 24 10/18/2023 CBC WITH DIFFE RENTI AL/PL ATELE T RBC 5.23 x10e6 /uL 4.14-5 .80 Not Available [facility] ([facility]) [address] [facility], [place], [address], 10/18/2023 08:27:55 10/17/19 24 10/18/2023 CBC WITH DIFFE RENTI AL/PL ATELE T hemoglobin 14.8 g/dL 13.0-1 7.7 Not Available [facility] ([facility]) [address] [place], [address], 10/18/2023 08:27:55 10/17/19 24 10/18/2023 CBC WITH DIFFE RENTI AL/PL ATELE T hematocrit 46.0 % 37.5-5 1.0 Not Available [facility] ([facility]) [address] [place], [address], 10/18/2023 08:27:55 10/17/19 24 10/18/2023 CBC WITH DIFFE RENTI AL/PL ATELE T MCV 88 fL 79-97 Not Available [facility] ([facility]) [address] [facility], [place], [address], 10/18/2023 08:27:55 10/17/19 24 10/18/2023 CBC WITH DIFFE RENTI AL/PL ATELE T MCH 28.3 pg 26.6-3 3.0 Not Available [facility] ([facility]) [address] [place], [address], 10/18/2023 08:27:55 10/17/19 24 10/18/2023 CBC WITH DIFFE RENTI AL/PL ATELE T MCHC 32.2 g/dL 31.5-3 5.7 Not Available [facility] ([facility]) [address] [place], [address], 10/18/2023 08:27:55 10/17/19 24 10/18/2023 CBC WITH DIFFE RENTI AL/PL ATELE T RDW 12.9 % 11.6-1 5.4 Not Available [facility] ([facility]) [address] [place], [address], 10/18/2023 08:27:55 10/17/19 24 10/18/2023 CBC WITH DIFFE RENTI AL/PL ATELE T platelets 150 x10e3 /uL 150-45 0 Not Available [facility] ([facility]) [address] [place], [address], 10/18/2023 08:27:55 10/17/19 24 10/18/2023 CBC WITH DIFFE RENTI AL/PL ATELE T neutrophils 58 % notest ab. Not Available [facility] ([facility]) [address] [place], [address], 10/18/2023 08:27:55 10/17/19 24 10/18/2023 CBC WITH DIFFE RENTI AL/PL ATELE T lymphs 26 % notest ab. Not Available [facility] ([facility]) [address] [facility], [place], [address], 10/18/2023 08:27:55 10/17/19 24 10/18/2023 CBC WITH DIFFE RENTI AL/PL ATELE T monocytes 6 % notest ab. Not Available [facility] ([facility]) [address] [facility], [place], [address], 10/18/2023 08:27:55 10/17/19 24 10/18/2023 CBC WITH DIFFE RENTI AL/PL ATELE T eos 8 % notest ab. Not Available [facility] ([facility]) [address] [facility], [place], [address], 10/18/2023 08:27:55 10/17/19 24 10/18/2023 CBC WITH DIFFE RENTI AL/PL ATELE T basos 1 % notest ab. Not Available [facility] ([facility]) [address] [facility], [place], [address], 10/18/2023 08:27:55 10/17/19 24 10/18/2023 CBC WITH DIFFE RENTI AL/PL ATELE T neutrophils (absolute) 4.5 x10e3 /uL 1.4-7. 0 Not Available [facility] ([facility]) [address] [facility], [place], [address], 10/18/2023 08:27:55 10/17/19 24 10/18/2023 CBC WITH DIFFE RENTI AL/PL ATELE T lymphs (absolute) 2.1 x10e3 /uL 0.7-3. 1 Not Available [facility] ([facility]) [address] [facility], [place], [address], 10/18/2023 08:27:55 10/17/19 24 10/18/2023 CBC WITH DIFFE RENTI AL/PL ATELE T monocytes(ab solute) 0.5 x10e3 /uL 0.1-0. 9 Not Available [facility] ([facility]) [address] [facility], [place], [address], 10/18/2023 08:27:55 10/17/19 24 10/18/2023 CBC WITH DIFFE RENTI AL/PL ATELE T eos (absolute) 0.7 x10e3 /uL 0.0-0. 4 above high normal Not Available [facility] ([facility]) [address] [facility], [place], [address], 10/18/2023 08:27:55 10/17/19 24 10/18/2023 CBC WITH DIFFE RENTI AL/PL ATELE T baso (absolute) 0.1 x10e3 /uL 0.0-0. 2 Not Available [facility] ([facility]) [address] [facility], [place], [address], 10/18/2023 08:27:55 10/17/19 24 10/18/2023 CBC WITH DIFFE RENTI AL/PL ATELE T immature granulocytes 1 % notest ab. Not Available [facility] ([facility]) [address] [facility], [place], [address], 10/18/2023 08:27:55 10/17/19 24 10/18/2023 CBC WITH DIFFE RENTI AL/PL ATELE T immature grans (abs) 0.0 x10e3 /uL 0.0-0. 1 Not Available [facility] ([facility]) [address] [place], [address], 10/18/2023 08:27:55 10/17/19 24 10/18/2023 PROST ATE-S PECIF IC AG prostate specific Ag 1.6 NG/mL 0.0-4. 0 Lalitha ECLIA metho dolog y. Accor ding to the Ameri can [employer]o g[employer] iatio n, Serum PSA shoul d decre ase and remai n at undet ectab le level s after radic al prost atect jethro. The AUA defin es bioch emica l recur rence as an initi al PSA value 0.2 ng/mL or great er follo wed by a subse quent confi rmato ry PSA value 0.2 ng/mL or great er. Value s obtai destinee with diffe rent assay metho ds or kits canno t be used inter ryan eably . Resul ts canno t be inter prete d as absol [place] evide nce of the prese nce or absen [facility] se. Not Available [facility] ([facility]) [address] [facility], [place], [address], 10/18/2023 08:27:56 01/20/20 24 01/21/2024 MICRO SCOPI C EXAMI NATIO N WBC NONE SEEN /hpf 0-5 Not Available [facility] ([facility]) [address] [facility], [place], [address], 01/21/2024 13:11:49 01/20/20 24 01/21/2024 MICRO SCOPI C EXAMI NATIO N RBC 0-2 /hpf 0-2 Not Available [facility] ([facility]) [address] [facility], [place], [address], 01/21/2024 13:11:49 01/20/20 24 01/21/2024 MICRO SCOPI C EXAMI NATIO N epithelial cells (non renal) 0-10 /hpf 0-10 Not Available [facility] ([facility]) [address] [facility], [place], [address], 01/21/2024 13:11:49 01/20/20 24 01/21/2024 MICRO SCOPI C EXAMI NATIO N casts NONE SEEN /lpf nonese en Not Available [facility] ([facility]) [address] [facility], [place], [address], 01/21/2024 13:11:49 01/20/20 24 01/21/2024 MICRO SCOPI C EXAMI NATIO N bacteria NONE SEEN nonese en/few Not Available [facility] ([facility]) [address] [facility], [place], [address], 01/21/2024 13:11:49 10/22/19 25 10/22/2024 ALBUM IN/CR EATIN INE RATIO ,URIN E creatinine, urine 151.0 mg/dL notest ab. Not Available [facility] ([facility]) [address] [facility], [place], [address], 10/22/2024 06:23:18 10/22/19 25 10/22/2024 ALBUM IN/CR EATIN INE RATIO ,URIN E albumin, urine 34.3 ug/mL notest ab. Not Available [facility] ([facility]) [address] [facility], [place], [address], 10/22/2024 06:23:18 10/22/19 25 10/22/2024 ALBUM IN/CR EATIN INE RATIO ,URIN E alb/creat ratio 23 mg/g_ creat 0-29 Krystle l: 0 - 29 Moder ately incre ased: 30 - 300 Sever valeri incre ased: >300 Not Available [facility] ([facility]) [address] [facility], [place], [address], 10/22/2024 06:23:18 10/22/19 25 10/22/2024 LIPID PANEL cholesterol, total 96 mg/dL 100-19 9 below low normal Not Available [facility] ([facility]) [address] [place], [address], 10/22/2024 06:23:19 10/22/19 25 10/22/2024 LIPID PANEL triglyceride s 142 mg/dL 0-149 Not Available [facility] ([facility]) [address] [place], [address], 10/22/2024 06:23:19 10/22/19 25 10/22/2024 LIPID PANEL HDL cholesterol 28 mg/dL >39 below low normal Not Available [facility] ([facility]) [address] [place], [address], 10/22/2024 06:23:19 10/22/19 25 10/22/2024 LIPID PANEL VLDL cholesterol wayne 25 mg/dL 5-40 Not Available [facility] ([facility]) [address] [place], [address], 10/22/2024 06:23:19 10/22/19 25 10/22/2024 LIPID PANEL LDL chol calc ([facility]) 43 mg/dL 0-99 Not Available [facility] ([facility]) [address] [place], [address], 10/22/2024 06:23:19 10/22/19 25 10/22/2024 COMP. METAB OLIC PANEL (14) glucose 76 mg/dL 70-99 Not Available [facility] ([facility]) [address] [place], [address], 10/22/2024 06:23:20 10/22/19 25 10/22/2024 COMP. METAB OLIC PANEL (14) BUN 12 mg/dL 8-27 Not Available [facility] ([facility]) [address] [place], [address], 10/22/2024 06:23:20 10/22/19 25 10/22/2024 COMP. METAB OLIC PANEL (14) creatinine 1.07 mg/dL 0.76-1 .27 Not Available [facility] ([facility]) [address] [place], [address], 10/22/2024 06:23:20 10/22/19 25 10/22/2024 COMP. METAB OLIC PANEL (14) eGFR 73 mL/mi n/1.7 3 >59 Not Available [facility] ([facility]) [address] [place], [address], 10/22/2024 06:23:20 10/22/19 25 10/22/2024 COMP. METAB OLIC PANEL (14) BUN/creatini ne ratio 11 10-24 Not Available [facility] ([facility]) [address] [facility], [place], [address], 10/22/2024 06:23:20 10/22/19 25 10/22/2024 COMP. METAB OLIC PANEL (14) sodium 142 mmol/ L 134-14 4 Not Available [facility] ([facility]) [address] [facility], [place], [address], 10/22/2024 06:23:20 10/22/19 25 10/22/2024 COMP. METAB OLIC PANEL (14) potassium 4.5 mmol/ L 3.5-5. 2 Not Available [facility] ([facility]) [address] [facility], [place], [address], 10/22/2024 06:23:20 10/22/19 25 10/22/2024 COMP. METAB OLIC PANEL (14) chloride 106 mmol/ L 96-106 Not Available [facility] ([facility]) [address] [facility], [place], [address], 10/22/2024 06:23:20 10/22/19 25 10/22/2024 COMP. METAB OLIC PANEL (14) carbon dioxide, total 22 mmol/ L 20-29 Not Available [facility] ([facility]) [address] [facility], [place], [address], 10/22/2024 06:23:20 10/22/19 25 10/22/2024 COMP. METAB OLIC PANEL (14) calcium 9.0 mg/dL 8.6-10 .2 Not Available [facility] ([facility]) [address] [facility], [place], [address], 10/22/2024 06:23:20 10/22/19 25 10/22/2024 COMP. METAB OLIC PANEL (14) protein, total 6.2 g/dL 6.0-8. 5 Not Available [facility] ([facility]) [address] [facility], [place], [address], 10/22/2024 06:23:20 10/22/19 25 10/22/2024 COMP. METAB OLIC PANEL (14) albumin 4.2 g/dL 3.8-4. 8 Not Available [facility] ([facility]) [address] [facility], [place], [address], 10/22/2024 06:23:20 10/22/19 25 10/22/2024 COMP. METAB OLIC PANEL (14) globulin, total 2.0 g/dL 1.5-4. 5 Not Available [facility] ([facility]) [address] [facility], [place], [address], 10/22/2024 06:23:20 10/22/19 25 10/22/2024 COMP. METAB OLIC PANEL (14) bilirubin, total 0.6 mg/dL 0.0-1. 2 Not Available [facility] ([facility]) [address] [facility], [place], [address], 10/22/2024 06:23:20 10/22/19 25 10/22/2024 COMP. METAB OLIC PANEL (14) alkaline phosphatase 51 IU/L 44-121 Not Available [facility] ([facility]) [address] [facility], [place], [address], 10/22/2024 06:23:20 10/22/19 25 10/22/2024 COMP. METAB OLIC PANEL (14) AST (SGOT) 16 IU/L 0-40 Not Available [facility] ([facility]) [address] [place], [address], 10/22/2024 06:23:20 10/22/19 25 10/22/2024 COMP. METAB OLIC PANEL (14) ALT (SGPT) 8 IU/L 0-44 Not Available [facility] ([facility]) [address] [facility], [place], [address], 10/22/2024 06:23:20 10/22/19 25 10/22/2024 HEMOG LOBIN A1C hemoglobin A1C 6.1 % 4.8-5. 6 above high normal Predi abete s: 5.7 - 6.4 Diabe antony: >6.4 Glyce sanket contr ol for adult s with diabe antony: <7.0 Not Available [facility] ([facility]) [address] [facility], [place], [address], 10/22/2024 06:23:22 10/22/19 25 10/22/2024 CBC WITH DIFFE RENTI AL/PL ATELE T WBC 6.8 x10e3 /uL 3.4-10 .8 Not Available [facility] ([facility]) [address] [place], [address], 10/22/2024 06:23:23 10/22/19 25 10/22/2024 CBC WITH DIFFE RENTI AL/PL ATELE T RBC 5.01 x10e6 /uL 4.14-5 .80 Not Available [facility] ([facility]) [address] [facility], [place], [address], 10/22/2024 06:23:23 10/22/19 25 10/22/2024 CBC WITH DIFFE RENTI AL/PL ATELE T hemoglobin 14.2 g/dL 13.0-1 7.7 Not Available [facility] ([facility]) [address] [place], [address], 10/22/2024 06:23:23 10/22/19 25 10/22/2024 CBC WITH DIFFE RENTI AL/PL ATELE T hematocrit 43.7 % 37.5-5 1.0 Not Available [facility] ([facility]) [address] [place], [address], 10/22/2024 06:23:23 10/22/19 25 10/22/2024 CBC WITH DIFFE RENTI AL/PL ATELE T MCV 87 fL 79-97 Not Available [facility] ([facility]) [address] [facility], [place], [address], 10/22/2024 06:23:23 10/22/19 25 10/22/2024 CBC WITH DIFFE RENTI AL/PL ATELE T MCH 28.3 pg 26.6-3 3.0 Not Available [facility] ([facility]) [address] [place], [address], 10/22/2024 06:23:23 10/22/19 25 10/22/2024 CBC WITH DIFFE RENTI AL/PL ATELE T MCHC 32.5 g/dL 31.5-3 5.7 Not Available [facility] ([facility]) [address] [place], [address], 10/22/2024 06:23:23 10/22/19 25 10/22/2024 CBC WITH DIFFE RENTI AL/PL ATELE T RDW 13.0 % 11.6-1 5.4 Not Available [facility] ([facility]) [address] [place], [address], 10/22/2024 06:23:23 10/22/19 25 10/22/2024 CBC WITH DIFFE RENTI AL/PL ATELE T platelets 118 x10e3 /uL 150-45 0 below low normal Not Available [facility] ([facility]) [address] [place], [address], 10/22/2024 06:23:23 10/22/19 25 10/22/2024 CBC WITH DIFFE RENTI AL/PL ATELE T neutrophils 64 % notest ab. Not Available [facility] ([facility]) [address] [place], [address], 10/22/2024 06:23:23 10/22/19 25 10/22/2024 CBC WITH DIFFE RENTI AL/PL ATELE T lymphs 24 % notest ab. Not Available [facility] ([facility]) [address] [facility], [place], [address], 10/22/2024 06:23:23 10/22/19 25 10/22/2024 CBC WITH DIFFE RENTI AL/PL ATELE T monocytes 8 % notest ab. Not Available [facility] ([facility]) [address] [facility], [place], [address], 10/22/2024 06:23:23 10/22/19 25 10/22/2024 CBC WITH DIFFE RENTI AL/PL ATELE T eos 3 % notest ab. Not Available [facility] ([facility]) [address] [facility], [place], [address], 10/22/2024 06:23:23 10/22/19 25 10/22/2024 CBC WITH DIFFE RENTI AL/PL ATELE T basos 1 % notest ab. Not Available [facility] ([facility]) [address] [facility], [place], [address], 10/22/2024 06:23:23 10/22/19 25 10/22/2024 CBC WITH DIFFE RENTI AL/PL ATELE T neutrophils (absolute) 4.4 x10e3 /uL 1.4-7. 0 Not Available [facility] ([facility]) [address] [facility], [place], [address], 10/22/2024 06:23:23 10/22/19 25 10/22/2024 CBC WITH DIFFE RENTI AL/PL ATELE T lymphs (absolute) 1.6 x10e3 /uL 0.7-3. 1 Not Available [facility] ([facility]) [address] [facility], [place], [address], 10/22/2024 06:23:23 10/22/19 25 10/22/2024 CBC WITH DIFFE RENTI AL/PL ATELE T monocytes(ab solute) 0.5 x10e3 /uL 0.1-0. 9 Not Available [facility] ([facility]) [address] [facility], [place], [address], 10/22/2024 06:23:23 10/22/19 25 10/22/2024 CBC WITH DIFFE RENTI AL/PL ATELE T eos (absolute) 0.2 x10e3 /uL 0.0-0. 4 Not Available [facility] ([facility]) [address] [place], [address], 10/22/2024 06:23:23 10/22/19 25 10/22/2024 CBC WITH DIFFE RENTI AL/PL ATELE T baso (absolute) 0.1 x10e3 /uL 0.0-0. 2 Not Available [facility] ([facility]) [address] [facility], [place], [address], 10/22/2024 06:23:23 10/22/19 25 10/22/2024 CBC WITH DIFFE RENTI AL/PL ATELE T immature granulocytes 0 % notest ab. Not Available [facility] ([facility]) [address] [place], [address], 10/22/2024 06:23:23 10/22/19 25 10/22/2024 CBC WITH DIFFE RENTI AL/PL ATELE T immature grans (abs) 0.0 x10e3 /uL 0.0-0. 1 Not Available [facility] ([facility]) [address] [place], [address], 10/22/2024 06:23:23 10/22/19 25 10/22/2024 PROST ATE-S PECIF IC AG prostate specific Ag 1.8 NG/mL 0.0-4. 0 Lalitha ECLIA metho dolog y. Accor ding to the Ameri can [employer] g[employer] iatio n, Serum PSA shoul d decre ase and remai n at undet ectab le level s after radic al prost atect jethro. The AUA defin es bioch emica l recur rence as an initi al PSA value 0.2 ng/mL or great er follo wed by a subse quent confi rmato ry PSA value 0.2 ng/mL or great er. Value s obtai destinee with diffe rent assay metho ds or kits canno t be used inter ryan eably . Resul ts canno t be inter prete d as absol [place] evide nce of the prese nce or absen ce of elisabeth abrams se. Not Available [facility] ([facility]) [address], [place], [address], 10/22/2024 06:23:24 01/07/20 24 01/07/2024 US, echoc ardio gram No observ ation record ed. [address] [facility] [address], [place], [address], 01/14/2024 08:24:45 02/03/20 24 02/03/2024 CT, abdom en + pelvi s, w/ contr ast No observ ation record ed. [facility] [address] [place], [address], 02/03/2024 17:23:25 02/07/20 24 02/06/2024 NM, myoca rdial perfu andrew scan, w/ stres s No observ ation record ed. [email or web address] [address], [place], [address], 02/14/2024 13:45:19 03/18/20 24 08/14/2023 LDCT, chest , for lung cance r scree philippe No observ ation record ed. [facility] [address] [place], [address], 03/18/2024 21:45:53 04/07/20 24 04/07/2024 XR, chest , 2 view No observ ation record ed. [facility] [address], [place], [address], 04/08/2024 09:30:02 07/14/20 24 07/01/2024 pulmo nary funct ion test* No observ ation record ed. [facility] [address], [place], [address], 07/20/2024 09:25:08 01/26/20 25 01/25/2025 imagi ng/di agnos tic resul t No observ ation record ed. [facility] [address], [place], [address], 01/25/2025 14:20:29 Result Notes None recorded. Problems Name Problem SNOMED Code Status Onset Date Resolution Date Notes Provider Name and Address Organization Details Recorded Time Abdominal pain 68300823 Active 2023 Florencia Rivers [place] null, [place] [facility] 4 17:17:18 Diabetes mellitus 99656192 Active 2023 Florencia Rivers [place] [facility] 4 17:17:45 Essential hypertension 15791657 Active 2023 Florencia Rivers [place] [facility] 4 17:17:49 Screening for malignant neoplasm of prostate Active 2023 Florencia Rivers [place] [facility] 4 17:17:51 Benign prostatic hyperplasia 965768760 Active 2023 Florencia Rivers [place] [facility] 4 17:17:54 Obstructive sleep apnea syndrome 85270129 Active 2023 Florencia Rivers [place] [facility] 4 17:17:56 Hyperlipidemia 38100055 Active 2023 Florencia Rivers [place], [place] [facility] 4 17:17:59 Coronary atherosclerosi s 715017980 Active 2023 SAVANAH Bright [facility] 4 17:18:01 Problem Notes None recorded. Procedures Surgical History Date Name Laterality Status Provider Name and Address Organization Details Recorded Time Eye Surgery completed Juliana Finn MA [facility] 10/17/2023 10:22:10 Heart Surgery completed Juliana Finn MA [facility] 10/17/2023 10:22:18 Knee Surgery completed Juliana Finn MA [facility] 10/17/2023 10:22:26 vasectomy completed Juliana Finn MA [facility] 10/17/2023 10:22:37 Imaging Results None recorded. Procedure Notes None recorded. Medical Equipment None Reported. Allergies Allergen ID Allergen Name Allergen Category Reaction Reaction Severity Criticality Documentation Date Start Date Code Code System Note Provider Name and Address Organization Details Recorded Time 225008 Iodinated contrast media (substanc e) medicatio n Not available Not available Not available 10/17/2023 98022 2004 SNOMED BP botto ms out. SAVANAH Bright [facility] 09:26:24 Medications Name Sig Start Date Stop Date Status Note LastModified by Organization Details LastModified Time carvedilol 25 mg tablet TAKE 1 TABLET BY MOUTH TWICE A DAY active Not Available Not Available No t Available doxycycline hyclate 100 mg capsule TAKE 1 CAPSULE BY MOUTH TWICE A DAY 06/24 completed Not Available Not Available Not Available clindamycin HCl 300 mg capsule TAKE 1 CAPSULE BY MOUTH THREE TIMES A DAY UNTIL GONE 10/16 completed Not Available Not Available Not Available tizanidine 4 mg tablet take 1 tablet QHS PRN back spasm active Not Available Not Available No t Available penicillin V potassium 500 mg tablet TAKE 1 TABLET BY MOUTH FOUR TIMES A DAY UNTIL FINISHED 10/16 completed Not Available Not Available Not Available tramadol 50 mg tablet 1 TABLET EVERY SIX HOURS FOR PAIN active Not Available Not Available No t Available famotidine 20 mg tablet TAKE 1 TABLET BY MOUTH AT BEDTIME THE DAY BEFORE PROCEDURE AND 1 TAB THE MORNING OF PROCEDURE 06/24 completed Not Available Not Available Not Available tamsulosin 0.4 mg capsule TAKE 1 CAPSULE BY MOUTH EVERY DAY AT BEDTIME FOR PROSTATE 2024 active Not Available Not Available Not Avai lable cephalexin 500 mg capsule TAKE ONE CAPSULE THREE TIMES DAILY UNTIL ALL TAKEN 06/24 completed Not Available Not Available Not Available metformin 1,000 mg tablet TAKE 1 TABLET BY MOUTH TWICE A DAY 2024 active Not Available Not Available Not Avai lable prednisone 50 mg tablet TAKE 1 TAB WITH DINNER AND AT BEDTIME THE DAY BEFORE PROCEDURE , AND 1 TAB THE MORNING OF PROCEDURE 06/24 completed Not Available Not Available Not Available Banophen 25 mg capsule TAKE 2 CAPSULES BY MOUTH THE MORNING OF PROCEDURE 06/24 completed Not Available Not Available Not Available cephalexin 500 mg tablet Take 1 tablet 3 times a day by oral route for 7 days. 06/24 completed Not Available Not Available Not Available valsartan 40 mg tablet TAKE 1 TABLET BY MOUTH EVERY DAY active Not Available Not Available No t Available rosuvastati n 20 mg tablet TAKE 1 TABLET BY MOUTH EVERY DAY active Not Available Not Available No t Available icosapent ethyl 1 gram capsule TAKE 2 CAPSULES BY MOUTH TWICE A DAY active Not Available Not Available No t Available Farxiga 10 mg tablet TAKE 1 TABLET BY MOUTH EVERY DAY active Not Available Not Available No t Available Toujeo Max U-300 SoloStar 300 unit/mL (3 mL) subcutaneou s insulin pen INJECT 80 UNITS UNDER THE SKIN ONCE DAILY IN THE MORNING. active Not Available Not Available No t Available Xarelto 2.5 mg tablet TAKE 1 TABLET BY MOUTH TWICE A DAY active Not Available Not Available No t Available Ozempic 1 mg/dose (4 mg/3 mL) subcutaneou s pen injector INJECT 1 MG UNDER THE SKIN ONE TIME PER WEEK active Not Available Not Available No t Available Kerendia 20 mg tablet TAKE 1 TABLET BY MOUTH EVERY DAY active Not Available Not Available No t Available aspirin 81 mg capsule Take 1 capsule every day by oral route. active Not Available Not Available No t Available Ozempic 2 mg/dose (8 mg/3 mL) subcutaneou s pen injector INJECT 2 MG SUBCUTANE OUSLY ONCE WEEKLY active Not Available Not Available No t Available Vitals Date Recorded Body weight Body mass index (BMI) Body height Heart rate Oxygen saturation Oxygen saturation in Arterial blood by Pulse oximetry Systolic blood pressure Diastolic blood pressure Provider Name and Address Organization Details Last Updated DateTime 4 889876. 58 g 31.5 kg/m2 185.42 cm 69 /min 96 % 96 % 114 mm[Hg] 60 mm[Hg] Juliana Finn MA [facility] 4 10:25:31 Date Recorded Body height Body mass index (BMI) Body weight Oxygen saturation Oxygen saturation in Arterial blood by Pulse oximetry Heart rate Systolic blood pressure Diastolic blood pressure Provider Name and Address Organization Details Last Updated DateTime 5 185.42 cm 31.7 kg/m2 114380. 53 g 94 % 94 % 67 /min 130 mm[Hg] 64 mm[Hg] Roseanna Vazquez MA [facility] 5 09:35:55 Date Recorded Body height Body mass index (BMI) Body weight Heart rate Oxygen saturation Oxygen saturation in Arterial blood by Pulse oximetry Systolic blood pressure Diastolic blood pressure Provider Name and Address Organization Details Last Updated DateTime 4 185.42 cm 32.8 kg/m2 897750. 34 g 68 /min 97 % 97 % 128 mm[Hg] 70 mm[Hg] Amelia Morales MA [facility] 4 16:31:00 Date Recorded Body height Body mass index (BMI) Body weight Heart rate Oxygen saturation Oxygen saturation in Arterial blood by Pulse oximetry Systolic blood pressure Diastolic blood pressure Provider Name and Address Organization Details Last Updated DateTime 4 185.42 cm 32.4 kg/m2 362316. 21 g 66 /min 97 % 97 % 120 mm[Hg] 72 mm[Hg] Amelia Morales MA [facility] 4 11:30:47 Date Recorded Body height Body mass index (BMI) Body weight Heart rate Oxygen saturation Oxygen saturation in Arterial blood by Pulse oximetry Systolic blood pressure Diastolic blood pressure Provider Name and Address Organization Details Last Updated DateTime 4 185.42 cm 31.8 kg/m2 550673. 76 g 72 /min 96 % 96 % 118 mm[Hg] 60 mm[Hg] Magdaleno Bean MA [facility] 4 11:51:02 Social History Question Answer Notes LastModified by Organizat ion Details LastModified Time Tobacco Smoking Status Current Every Day Smoker Juliana Finn MA null, [facility] 10/17/2023 10:20:58 Do You Have An Advance Directive? No Information n ot available 01/15/2024 How Many Years Have You Consumed Alcohol? 60 Information not available 10/17/2023 Are You Blind Or Do You Have Difficulty Seeing? No Information n ot available 10/17/2023 What Is Your Level Of Caffeine Consumption? Moderate Information not available 10/17/2023 In The 14 Days Before Symptom Onset, Have You Had Close Contact With A Laboratory-confirm ed COVID-19 While That Case Was Ill? No Information n ot available 01/15/2024 In The 14 Days Before Symptom Onset, Have You Had Close Contact With A Person Who Is Under Investigation For COVID-19 While That Person Was Ill? No Information not available 01/15/2024 Have You Been To An Area Known To Be High Risk For COVID-19? No Information not available 01/15/2024 Are You Deaf Or Do You Have Serious Difficulty Hearing? No Information not available 10/17/2023 What Type Of Diet Are You Following? REGULAR Information n ot available 10/17/2023 Are There Any Guns Present In Your Home? No Information not available 10/17/2023 What Was The Date Of Your Most Recent Tobacco Screening? 10/21/2024 Information not available 10/21/2024 What Is Your Current Pack Years? 20-29packyear s Information not available 10/17/2023 What Is Your Relationship Status? Information not available 10/17/2023 Do You Use Your Seat Belt Or Car Seat Routinely? Yes Information not available 10/17/2023 Do You Have Smoke And Carbon Monoxide Detectors In Your Home? Yes Information not available 10/17/2023 How Much Tobacco Do You Smoke? 0.5 PPD Information not available 10/21/2024 Do You Use Sunscreen Routinely? No Information not available 10/17/2023 Has Tobacco Cessation Counseling Been Provided? Yes Information not available 10/21/2024 On What Date Was Tobacco Cessation Counseling Provided? 10/21/2024 Information not available 10/21/2024 How Many Years Have You Smoked Tobacco? 50 Information not available 10/17/2023 Sex: Male Functional Status Question Answer Note LastModified by Organizat ion Details LastModified Time Do you use any illicit or recreational drugs? No Information not available 10/17/2023 Do you or have you ever used any other forms of tobacco or nicotine? No Information not available 10/17/2023 What is your level of alcohol consumption? Occasional Information not available 10/17/2023 Are you currently employed? No Retired Information not available 01/15/2024 Are you able to care for yourself? Yes Information not available 10/17/2023 What is your exercise level? None Information not available 10/17/2023 Mental Status Question Answer Note LastModified by Organization D etails LastModified Time Do you feel stressed (tense, restless, nervous, or anxious, or unable to sleep at night)? [id number] Information not available 10/17/2023 Family History Relationship Description Onset Age of this Age Resolved Age Notes LastModified by Organization Details LastModified Time Father Harmful pattern of use of alcohol [email or web address] Not available 02/2024 10:19:01 Mother Coronary arterioscler osis bandersonma Not available 02/2024 10:19:20 Mother Diabetes mellitus bandersonma Not available 02/2024 10:19:36 Mother Heart disease bandersonma Not available 02/2024 10:19:54 Brother Coronary arterioscler osis bandersonma Not available 02/2024 10:19:20 Brother Diabetes mellitus bandersonma Not available 02/2024 10:19:36 Brother Heart disease bandersonma Not available 02/2024 10:19:54 Brother Hypercholest erolemia bandersonma Not available 02/2024 10:20:06 Sister Coronary arterioscler osis bandersonma Not available 02/2024 10:19:20 Sister Diabetes mellitus bandersonma Not available 02/2024 10:19:36 Sister Heart disease bandersonma Not available 02/2024 10:19:54 Sister Hypercholest erolemia bandersonma Not available 02/2024 10:20:06 Medical History Condition Response Coronary Artery Disease Y Other N High Blood Pressure N Atrial Fibrillation N Kidney or Bladder Problems N Thyroid Problems N GI Problems N Depression N COPD N Blood Clots N Skin Problems N Anemia N Heart Attack (RI) Y Anxiety Disorder N Diabetes Y Muscle, Joint, or Bone Problems Y Seizures/Epilepsy N Acid Reflux (GERD) N Cancer N Stroke Y Asthma N Allergies Y High Cholesterol Y Hepatitis N Liver Disease N Headaches N Heart Failure Y Osteoporosis N Immunizations Vaccine Type Date Status Note Provider Nam e and Address Organization Details Recorded Time Influenza, high-dose, quadrivalent, PF 3 completed SAVANAH [place], [place] [facility] 10/21/2024 08:59:42 COVID-19, mRNA, LNP-S, PF, 30 mcg/0.3 mL dose 1 completed [place] [facility] 10/21/2024 08:59:42 COVID-19, mRNA, LNP-S, PF, 30 mcg/0.3 mL dose 1 completed Patti Landis [place], [place] [facility] 10/21/2024 08:59:42 Influenza, split virus, trivalent, preservative 4 completed Patti Land[place] [facility] 10/21/2024 08:59:42 Influenza, high-dose, trivalent, PF 4 completed Yarelis Camargo MD Attn: Accounting[address] [place], [address], [place] [facility] 07/05/2024 16:49:11 Tdap 5 completed Yarelis Camargo MD Attn: Accounting[address] [place], [address], [place] [facility] 11/29/2024 15:59:03 Pneumococcal conjugate PCV20, polysaccharide SKV990 conjugate, adjuvant, PF 5 completed Yarelis Camargo MD Attn: Accounting[address] [place], [address], [place] [facility] 11/29/2024 15:59:03 Past Encounters Encounter ID Performer Location Encounter Start Date Encounter Closed Date Diagnosis/Indication Diagnosis SNOMED-CT Code Diagnosis ICD10 Code Diagnosis Note [id number] Yarelis Camargo MD [facility] (Adult Med) [address] [place] [id number] 0 10/17/2023 09:59:11 10/17/2023 10:54:48 Diabetes mellitus 14872566 E11.9 Essential hypertension 61997760 I10 Screening for malignant neoplasm of prostate 435983413 Z12.5 Benign pro static hyperplasia 639966639 N40.0 Obstructiv e sleep apnea syndrome 06189096 G47.33 Hyperlipidemia 27276652 E78.5 Coronary atherosclerosis 291665931 I25.10 [id number] MD [facility] (Adult Med) [address] [place] [id number] 01/15/2024 16:12:07 01/15/2024 17:20:13 Abdominal pain 40264682 R10.9 [id number] Yarelis Camargo MD [facility] (Adult Med) [address] [place] [id number] 0 02/19/2024 11:18:26 02/19/2024 12:07:08 Obesity 949199269 E66.8 Smoker 57672367 F17.200 Diabetes mellitus 466834 09 E11.9 Coronary atherosclerosis 565930694 I25.10 Essential hypertension 58008438 I10 Hyperlipidemia 55673440 E78.5 [id number] MD [facility] (Adult Med) [address] [place] [id number] 0 06/24/2024 11:41:48 06/24/2024 12:29:28 Administration of influenza vaccine 28241003 Z23 Essential hypertension 86270398 I10 Diabetes mellitus 753530 09 E11.9 Coronary atherosclerosis 517773598 I25.10 Hyperlipidemia 78247029 E78.5 [id number] Yarelis Camargo MD [facility] (Adult Med) [address] [place] [id number] 0 10/21/2024 09:25:02 10/21/2024 10:13:46 Body mass index 30+ - obesity 692224710 Z68.31 Diabetes mellitus 970011 09 E11.9 Essential hypertension 75702193 I10 Hyperlipidemia 21642172 E78.5 Obstructiv e sleep apnea syndrome 12340764 G47.33 Screening for malignant neoplasm of prostate 016549340 Z12.5 Administra tion of diphtheria, pertussis, and tetanus vaccine 000012213 Z23 Administra tion of pneumococcal vaccine 17796816 Z23 Health Concerns Section Related Observation LastModified by Organization Detai ls LastModified Time None Recorded Concern Status LastModified by Organization Details LastModified Time None Recorded Advance Directives Directive N: Payers Insurance Date Sequence Insurance Name Policy Number Policy Brand Covered Member ID Brand Member ID Guarantor Name 01/16/2024 1 [place] Christopher Howe [id number] Christopher Howe 11/30/2024 1 [facility] (MEDICARE REPLACEMENT/A DVANTAGE - PPO) [id number] Christopher Shefali Howe [id number] Christopher Shyam Notes Date Note Type Note Provider Name and Address Organization Details Recorded Time 4 text/html Hypertension no headache or dizzinessCAD no chest pain or anginal equivalentsDiabetes taking his Ozempic no side effects no polyphasia polydipsia or hypoglycemiaSystolic heart failure no PND orthopnea SPARROW or other signs of decompensated heart diseaseOSA CPAP doing well gainingSome trouble with decreased urinary stream does not feel like he completely empties his bladder Yarelis Camargo MD Attn: Accounting[address] [place], [address], [facility] 10/17/2023 11:05:16 4 text/html atraumatic pain right infrascapular radiating across posterior low medially into the right lower quadrant at times up and down the Spinal musculature to change in bowel habits no nausea no vomiting no trauma no skin changes moderate to severe ibuprofen helps hold no discernible lesion aggravating or alleviating factor Yarelis Camargo MD Attn: Accounting[address] [place], [address], [facility] 01/15/2024 21:13:15 4 text/html Hypertension no headache or dizzinessCAD no chest pain or anginal equivalentsDiabetes taking his Ozempic no side effects no polyphasia polydipsia or hypoglycemiaSystolic heart failure no PND orthopnea SPARROW or other signs of decompensated heart diseaseOSA CPAP doing well gainingSome trouble with decreased urinary stream does not feel like he completely empties his bladder that has improvedlaceration right leg 4 stitches placed by urgent care Yarelis Camargo MD Attn: Accounting[address] [place], [address], [facility] 03/15/2024 15:53:29 4 text/html Hypertension no headache or dizzinessCAD no chest pain or anginal equivalentsDiabetes taking his Ozempic no side effects no polyphasia polydipsia or hypoglycemiaSystolic heart failure no PND orthopnea SPARROW or other signs of decompensated heart diseaseOSA CPAP doing well gainingbi V AICD placed Yarelis Camargo MD Attn: Accounting[address] [place], [address], [facility] 07/05/2024 16:49:14 5 text/html Hypertension no headache or dizzinessCAD no chest pain or anginal equivalentsDiabetes taking his Ozempic no side effects no polyphasia polydipsia or hypoglycemiaSystolic heart failure no PND orthopnea SPARROW or other signs of decompensated heart diseaseOSA CPAP needs new sleep study Yarelis Camargo MD Attn: Accounting[address] [place], [address], [facility] 11/29/2024 16:00:36
--- OUTSIDE RECORDS SUMMARY | 2025-01-26 08:50 | XMS_ITS | Data Portability ---
Author Organization [place] - [facility], Main Office Address [address] [place] [address] Care Team Providers Care Head Housekeeper Name Role Phone YARELIS CAMARGO Primary Care Provider YARELIS CAMARGO Referring Provider [phone] Assessment Encounter Date Assessment Date Assessment LastModified by Organization Details LastModified Time 04/11/2023 04/11/2023 Left axillary cyst. Longstanding. Options discussed with Patient. we will schedule for excision in the office under local anesthesia. Risks and benefits were discussed. Risks include bleeding and infection Not available 04/11/2023 11:57:32 04/30/2023 04/30/2023 Sebaceous cyst excised from L axilla. Specimen sent to path. RTC in one week, sooner if concerns arise. Not available 04/30/2023 12:12:29 05/07/2023 05/07/2023 s/p excision sebaceous cyst L axilla. doing well. sutures removed today. f/u PRN Not available 05/07/2023 11:37:27 07/17/2023 07/17/2023 Will continue current therapy blood work ordered follow-up in 4 months [email or web address] Not available 07/19/2023 19:26:12 05/06/2024 05/06/2024 74-year-old male presents for evaluation of his right knee. He has a history of arthritis, previously has seen Dr. Finn. He reports that a few weeks ago he twisted his knee. He has some pain but that has since subsided, he currently rates his pain as 2/10. He has also gotten physical therapy in the past, but no treatment since his most recent visit. Overall he just wants to get a checkup and make sure nothing is going on with his knee. Review of systems per patient questionnaire Physical exam: He has tenderness palpation of the medial joint line. Nonantalgic gait. Range of motion 0-130. Stable ligaments. X-rays of the knee were reviewed, demonstrating moderate degenerative change with joint space narrowing particularly of the medial compartment At this point he has had improvement. He is unable take NSAIDs because of being on blood thinners. He is taking Tylenol and should continue doing that. He may continue to be activity as tolerated. Follow-up as needed. [email or web address] Not available 05/06/2024 17:39:46 Plan of Treatment Reminders Order Date Submit Date Provider Last Modified By Organization Details Last Modified Time Details Appointments None recorded . Lab PSA, serum or plasma 023 07/17/20 23 [email or web address] Not available 3 09:30:25 HbA1c (hemoglo bin A1c), blood 023 07/17/20 23 [email or web address] Not available 4 19:06:22 CMP, serum or plasma 023 07/17/20 23 [email or web address] Not available 3 17:56:59 CBC w/ auto diff 023 07/17/20 23 [email or web address] Not available 3 15:11:47 lipid panel, serum 023 07/17/20 23 MECHE Not available 3 17:57:04 Referral None recorded . Procedures None recorded . Surgeries None recorded . Imaging XR, knee, 3 view 024 05/06/20 24 [email or web address] Raffy Santacruz, [address] [address] [facility] [address], [place], [address], 4 11:54:30 Medication Orders None recorded . Patient TargetsNo targets recorded. Patient InstructionsNo instructions recorded. Reason for Referral None Reported. Results Created Date Observation Date Name Description Value Unit Range Abnormal Flag Note LastModifiedBy Organization Detail LastModifiedTime 03/20/20 23 03/20/2023 CBC/C OMPLE TE BLD COUNT W/DIF F white blood cells 7.0 x10'3 /uL 4.2-10 .8 Not Available [facility] (Lab) [address] [place], [address], 03/20/2023 20:29:42 03/20/20 23 03/20/2023 CBC/C OMPLE TE BLD COUNT W/DIF F red blood cells 5.26 x10'6 /uL 4.10-5 .80 Not Available [facility] (Lab) [address] [place], [address], 03/20/2023 20:29:42 03/20/20 23 03/20/2023 CBC/C OMPLE TE BLD COUNT W/DIF F hemoglobin 14.7 g/dL 13.2-1 7.0 Not Available [facility] (Lab) [address] [place], [address], 03/20/2023 20:29:42 03/20/20 23 03/20/2023 CBC/C OMPLE TE BLD COUNT W/DIF F hematocrit 46.4 % 39.3-5 0.0 Not Available [facility] (Lab) [address] [place], [address], 03/20/2023 20:29:42 03/20/20 23 03/20/2023 CBC/C OMPLE TE BLD COUNT W/DIF F mean red cell volume 88.2 fL 80.0-9 7.0 Not Available [facility] (Lab) [address] [place], [address], 03/20/2023 20:29:42 03/20/20 23 03/20/2023 CBC/C OMPLE TE BLD COUNT W/DIF F mean red cell hemoglobin 27.9 pg 27.0-3 3.0 Not Available [facility] (Lab) [address] [place], [address], 03/20/2023 20:29:42 03/20/20 23 03/20/2023 CBC/C OMPLE TE BLD COUNT W/DIF F mean RBC HGB concentratio n 31.7 g/dL 31.0-3 6.0 Not Available [facility] (Lab) [address] [place], [address], 03/20/2023 20:29:42 03/20/20 23 03/20/2023 CBC/C OMPLE TE BLD COUNT W/DIF F red cell distribution width 13.9 % 11.8-1 5.5 Not Available [facility] (Lab) [address] [place], [address], 03/20/2023 20:29:42 03/20/20 23 03/20/2023 CBC/C OMPLE TE BLD COUNT W/DIF F platelets 128 x10'3 /uL 150-40 0 low Not Available [facility] (Lab) [address] [place], [address], 03/20/2023 20:29:42 03/20/20 23 03/20/2023 CBC/C OMPLE TE BLD COUNT W/DIF F mean platelet volume 11.2 fL 9.0-12 .4 Not Available [facility] (Lab) [address] [place], [address], 03/20/2023 20:29:42 03/20/20 23 03/20/2023 CBC/C OMPLE TE BLD COUNT W/DIF F neutrophils 66.3 % 39.0-7 2.0 Not Available [facility] (Lab) [address] [place], [address], 03/20/2023 20:29:42 03/20/20 23 03/20/2023 CBC/C OMPLE TE BLD COUNT W/DIF F lymphocytes 24.0 % 16.0-4 7.0 Not Available [facility] (Lab) [address] [place], [address], 03/20/2023 20:29:42 03/20/20 23 03/20/2023 CBC/C OMPLE TE BLD COUNT W/DIF F monocytes 6.4 % 5.0-12 .0 Not Available [facility] (Lab) [address] [place], [address], 03/20/2023 20:29:42 03/20/20 23 03/20/2023 CBC/C OMPLE TE BLD COUNT W/DIF F eosinophils 2.3 % 1.0-7. 0 Not Available [facility] (Lab) [address] [place], [address], 03/20/2023 20:29:42 03/20/20 23 03/20/2023 CBC/C OMPLE TE BLD COUNT W/DIF F basophils 0.6 % 0.0-2. 0 Not Available [facility] (Lab) [address] [place], [address], 03/20/2023 20:29:42 03/20/20 23 03/20/2023 CBC/C OMPLE TE BLD COUNT W/DIF F immature granulocytes 0.4 % 0.00-0 .50 Not Available [facility] (Lab) [address] [place], [address], 03/20/2023 20:29:42 03/20/20 23 03/20/2023 CBC/C OMPLE TE BLD COUNT W/DIF F neutrophils, absolute count 4.67 x10'3 /uL 1.5-8. 0 Not Available [facility] (Lab) [address] [place], [address], 03/20/2023 20:29:42 03/20/20 23 03/20/2023 CBC/C OMPLE TE BLD COUNT W/DIF F lymphocytes, absolute count 1.69 x10'3 /uL 1.07-3 .43 Not Available [facility] (Lab) [address] [place], [address], 03/20/2023 20:29:42 03/20/20 23 03/20/2023 CBC/C OMPLE TE BLD COUNT W/DIF F monocytes, absolute count 0.45 x10'3 /uL 0.29-0 .99 Not Available [facility] (Lab) [address] [place], [address], 03/20/2023 20:29:42 03/20/20 23 03/20/2023 CBC/C OMPLE TE BLD COUNT W/DIF F eosinophils, absolute count 0.16 x10'3 /uL 0.02-0 .53 Not Available [facility] (Lab) [address] [place], [address], 03/20/2023 20:29:42 03/20/20 23 03/20/2023 CBC/C OMPLE TE BLD COUNT W/DIF F basophils, absolute count 0.04 x10'3 /uL 0.01-0 .08 Not Available [facility] (Lab) [address] [place], [address], 03/20/2023 20:29:42 03/20/20 23 03/20/2023 CBC/C OMPLE TE BLD COUNT W/DIF F immature granulocytes ,absolute 0.03 x10'3 /uL 0.00-0 .05 Not Available [facility] (Lab) [address] [place], [address], 03/20/2023 20:29:42 03/20/20 23 03/20/2023 CBC/C OMPLE TE BLD COUNT W/DIF F nucleated red blood cells 0.0 % -0 Not Available [facility] (Lab) [address] [place], [address], 03/20/2023 20:29:42 03/20/20 23 03/20/2023 CBC/C OMPLE TE BLD COUNT W/DIF F NRBC# 0.00 x10'3 /uL Not Available [facility] (Lab) [address] [place], [address], 03/20/2023 20:29:42 03/20/20 23 03/20/2023 LIPID PANEL cholesterol 89 mg/dL 140-19 9 low NIH LOULOU NSUS RECOM MENDA TION FOR RODERICK STERO L: ADULT CHILD LOW RISK: <200 <170 BORDE RLINE : <200- 239 ----- HIGH RISK: >240 >200 Not Available [facility] (Lab) [address] [place], [address], 03/20/2023 15:04:42 03/20/20 23 03/20/2023 LIPID PANEL triglyceride s 125 mg/dL 0-150 NIH LOULOU NSUS REPOR T RECOM MENDA TION FOR TRIGL YCERI JOHN: ADULT CHILD LOW RISK: <150 ----- BODER LINE: 150-1 99 ----- HIGH RISK: >200 ----- Not Available [facility] (Lab) [address] [place], [address], 03/20/2023 15:04:42 03/20/20 23 03/20/2023 LIPID PANEL HDL cholesterol 26 mg/dL 40- low Not Available [facility] (Lab) [address] [place], [address], 03/20/2023 15:04:42 03/20/20 23 03/20/2023 LIPID PANEL LDL cholesterol, calculated 38 mg/dL 0-130 NIH LOULOU NSUS REPOR T RECOM MENDA TIONS FOR LDL: ADULT CHILD LOW RISK <130 <110 (OPTI MAL LDL) <100 ----- BORDE RLINE : 130-1 59 ----- HIGH RISK: >160 >130 A TRIGL YCERI DE RESUL T >400 INVAL IDATE S THE CALCU LATIO N FOR LDL FRACT IONAT ION - THE LDL RESUL T WILL NOT BE REPOR NIKKY. Not Available [facility] (Lab) [address] [place], [address], 03/20/2023 15:04:42 03/20/20 23 03/20/2023 COMPR EHENS SHARON METAB OLIC PANEL sodium 139 mmol/ L 137-14 5 Not Available [facility] (Lab) [address] [place], [address], 03/20/2023 15:04:44 03/20/20 23 03/20/2023 COMPR EHENS SHARON METAB OLIC PANEL potassium 4.2 mmol/ L 3.5-5. 1 Not Available [facility] (Lab) [address] [place], [address], 03/20/2023 15:04:44 03/20/20 23 03/20/2023 COMPR EHENS SHARON METAB OLIC PANEL chloride 105 mmol/ L 98-107 Not Available [facility] (Lab) [address] [place], [address], 03/20/2023 15:04:44 03/20/20 23 03/20/2023 COMPR EHENS SHARON METAB OLIC PANEL carbon dioxide 25 mmol/ L 22-30 Not Available [facility] (Lab) [address] [place], [address], 03/20/2023 15:04:44 03/20/20 23 03/20/2023 COMPR EHENS SHARON METAB OLIC PANEL anion gap 13.2 mmol/ L 14-22 low Not Available [facility] (Lab) [address] [place], [address], 03/20/2023 15:04:44 03/20/20 23 03/20/2023 COMPR EHENS SHARON METAB OLIC PANEL glucose 126 mg/dL 70-99 high Not Available [facility] (Lab) [address] [place], [address], 03/20/2023 15:04:44 03/20/20 23 03/20/2023 COMPR EHENS SHARON METAB OLIC PANEL BUN 16 mg/dL 8-19 Not Available [facility] (Lab) [address] [place], [address], 03/20/2023 15:04:44 03/20/20 23 03/20/2023 COMPR EHENS SHARON METAB OLIC PANEL creatinine 0.91 mg/dL 0.66-1 .25 Not Available [facility] (Lab) [address] [place], [address], 03/20/2023 15:04:44 03/20/20 23 03/20/2023 COMPR EHENS SHARON METAB OLIC PANEL GFR >60 Refer ence Range : [place] ge GFR Healt hy Adult : >60 mL/mi n/1.7 3 m2 Chron ic Kidne y Disea se: 15-60 mL/mi n/1.7 3 m2 Kidne y Failu re: <15/m L/min /1.73 m2 www.n iddk. nih.g ov The MDRD study equat ion has not been valid ated in child rosales <18 years of age; pregn ant women ; the elder ly >85 years of age; or in some racia l or ethni c subgr oups, such as Hisnc nics. Outsi de the valid ated james eters , estim ated GFR is less accur ate, requi ring clini wayne judgm ent on a case- by-ca se basis . Clini wayne inter preta tion for other races and ages must be made by the clini andrea. The MDRD study equat ion has not been valid ated for the evalu ation of serum creat inine relat ed to nutri joseph l statu s or medic ation usage . For perso ns <18 years of age, a pedia tric GFR calcu lator is avail able on the F websi te: https ://ww w.kid curtis.o rg/pr ofess ional s/kdo qi/gf r_cal culat or Not Available [facility] (Lab) [address] [place], [address], 03/20/2023 15:04:44 03/20/20 23 03/20/2023 COMPR EHENS SHARON METAB OLIC PANEL alkaline phosphatase 50 U/L 38-126 Not Available [facility] (Lab) [address] [place], [address], 03/20/2023 15:04:44 03/20/20 23 03/20/2023 COMPR EHENS SHARON METAB OLIC PANEL alanine aminotransfe rase 16 U/L 0-50 Not Available [facility] (Lab) [address] [place], [address], 03/20/2023 15:04:44 03/20/20 23 03/20/2023 COMPR EHENS SHARON METAB OLIC PANEL aspartate aminotransfe rase 25 U/L 15-46 Not Available [facility] (Lab) [address] [place], [address], 03/20/2023 15:04:44 03/20/20 23 03/20/2023 COMPR EHENS SHARON METAB OLIC PANEL bilirubin, total 0.60 mg/dL 0.20-1 .30 Not Available [facility] (Lab) [address] [place], [address], 03/20/2023 15:04:44 03/20/20 23 03/20/2023 COMPR EHENS SHARON METAB OLIC PANEL calcium 8.6 mg/dL 8.4-10 .2 Not Available [facility] (Lab) [address] [place], [address], 03/20/2023 15:04:44 03/20/20 23 03/20/2023 COMPR EHENS SHARON METAB OLIC PANEL total protein 6.1 g/dL 6.3-8. 2 low Not Available [facility] (Lab) [address] [place], [address], 03/20/2023 15:04:44 03/20/20 23 03/20/2023 COMPR EHENS SHARON METAB OLIC PANEL albumin 3.9 g/dL 3.0-4. 4 Not Available [facility] (Lab) [address] [place], [address], 03/20/2023 15:04:44 03/20/20 23 03/20/2023 COMPR EHENS SHARON METAB OLIC PANEL globulin 2.2 g/dL 2.6-4. 2 low Not Available [facility] (Lab) [address] [place], [address], 03/20/2023 15:04:44 03/20/20 23 03/20/2023 COMPR EHENS SHARON METAB OLIC PANEL A/G ratio 1.8 ratio 1.0-2. 0 Not Available [facility] (Lab) [address] [place], [address], 03/20/2023 15:04:44 03/20/20 23 03/20/2023 HEMOG LOBIN A1C HA1C 5.7 % 4.0-6. 0 Diabe antony Scree philippe Crite fransisco: <5.7% Consi stent with absen ce of diabe antony 5.7-6 .4% Consi stent with incre ased risk for diabe antony (pred iabet es) >OR=6 .5% Consi stent with diabe antony REFER ENCE: Diabe antony Care 2016, 39(Damian ppl.1 ):s13 -s22 Not Available [facility] (Lab) [address] [place], [address], 03/20/2023 18:25:46 07/17/20 23 07/17/2023 CBC/C OMPLE TE BLD COUNT W/DIF F white blood cells 7.7 x10'3 /uL 4.2-10 .8 Not Available [facility] (Lab) [address] [place], [address], 07/17/2023 15:11:47 07/17/20 23 07/17/2023 CBC/C OMPLE TE BLD COUNT W/DIF F red blood cells 5.01 x10'6 /uL 4.10-5 .80 Not Available [facility] (Lab) [address] [place], [address], 07/17/2023 15:11:47 07/17/20 23 07/17/2023 CBC/C OMPLE TE BLD COUNT W/DIF F hemoglobin 14.8 g/dL 13.2-1 7.0 Not Available [facility] (Lab) [address] [place], [address], 07/17/2023 15:11:47 07/17/20 23 07/17/2023 CBC/C OMPLE TE BLD COUNT W/DIF F hematocrit 47.0 % 39.3-5 0.0 Not Available [facility] (Lab) [address] [place], [address], 07/17/2023 15:11:47 07/17/20 23 07/17/2023 CBC/C OMPLE TE BLD COUNT W/DIF F mean red cell volume 93.8 fL 80.0-9 7.0 Not Available [facility] (Lab) [address] [place], [address], 07/17/2023 15:11:47 07/17/20 23 07/17/2023 CBC/C OMPLE TE BLD COUNT W/DIF F mean red cell hemoglobin 29.5 pg 27.0-3 3.0 Not Available [facility] (Lab) [address] [place], [address], 07/17/2023 15:11:47 07/17/20 23 07/17/2023 CBC/C OMPLE TE BLD COUNT W/DIF F mean RBC HGB concentratio n 31.5 g/dL 31.0-3 6.0 Not Available [facility] (Lab) [address] [place], [address], 07/17/2023 15:11:47 07/17/20 23 07/17/2023 CBC/C OMPLE TE BLD COUNT W/DIF F red cell distribution width 13.7 % 11.8-1 5.5 Not Available [facility] (Lab) [address] [place], [address], 07/17/2023 15:11:47 07/17/20 23 07/17/2023 CBC/C OMPLE TE BLD COUNT W/DIF F platelets 125 x10'3 /uL 150-40 0 low Not Available [facility] (Lab) [address] [place], [address], 07/17/2023 15:11:47 07/17/20 23 07/17/2023 CBC/C OMPLE TE BLD COUNT W/DIF F mean platelet volume 11.6 fL 9.0-12 .4 Not Available [facility] (Lab) [address] [place], [address], 07/17/2023 15:11:47 07/17/20 23 07/17/2023 CBC/C OMPLE TE BLD COUNT W/DIF F neutrophils 67.5 % 39.0-7 2.0 Not Available [facility] (Lab) [address] [place], [address], 07/17/2023 15:11:47 07/17/20 23 07/17/2023 CBC/C OMPLE TE BLD COUNT W/DIF F lymphocytes 21.6 % 16.0-4 7.0 Not Available [facility] (Lab) [address] [place], [address], 07/17/2023 15:11:47 07/17/20 23 07/17/2023 CBC/C OMPLE TE BLD COUNT W/DIF F monocytes 6.3 % 5.0-12 .0 Not Available [facility] (Lab) [address] [place], [address], 07/17/2023 15:11:47 07/17/20 23 07/17/2023 CBC/C OMPLE TE BLD COUNT W/DIF F eosinophils 3.6 % 1.0-7. 0 Not Available [facility] (Lab) [address] [place], [address], 07/17/2023 15:11:47 07/17/20 23 07/17/2023 CBC/C OMPLE TE BLD COUNT W/DIF F basophils 0.6 % 0.0-2. 0 Not Available [facility] (Lab) [address] [place], [address], 07/17/2023 15:11:47 07/17/20 23 07/17/2023 CBC/C OMPLE TE BLD COUNT W/DIF F immature granulocytes 0.4 % 0.00-0 .50 Not Available [facility] (Lab) [address] [place], [address], 07/17/2023 15:11:47 07/17/20 23 07/17/2023 CBC/C OMPLE TE BLD COUNT W/DIF F neutrophils, absolute count 5.21 x10'3 /uL 1.5-8. 0 Not Available [facility] (Lab) [address] [place], [address], 07/17/2023 15:11:47 07/17/20 23 07/17/2023 CBC/C OMPLE TE BLD COUNT W/DIF F lymphocytes, absolute count 1.67 x10'3 /uL 1.07-3 .43 Not Available [facility] (Lab) [address] [place], [address], 07/17/2023 15:11:47 07/17/20 23 07/17/2023 CBC/C OMPLE TE BLD COUNT W/DIF F monocytes, absolute count 0.49 x10'3 /uL 0.29-0 .99 Not Available [facility] (Lab) [address] [place], [address], 07/17/2023 15:11:47 07/17/20 23 07/17/2023 CBC/C OMPLE TE BLD COUNT W/DIF F eosinophils, absolute count 0.28 x10'3 /uL 0.02-0 .53 Not Available [facility] (Lab) [address] [place], [address], 07/17/2023 15:11:47 07/17/20 23 07/17/2023 CBC/C OMPLE TE BLD COUNT W/DIF F basophils, absolute count 0.05 x10'3 /uL 0.01-0 .08 Not Available [facility] (Lab) [address] [place], [address], 07/17/2023 15:11:47 07/17/2007/17/2023 CBC/C OMPLE TE BLD COUNT W/DIF F immature granulocytes ,absolute 0.03 x10'3 /uL 0.00-0 .05 Not Available [facility] (Lab) [address] [place], [address], 07/17/2023 15:11:47 07/17/20 23 07/17/2023 CBC/C OMPLE TE BLD COUNT W/DIF F nucleated red blood cells 0.0 % -0 Not Available [facility] (Lab) [address] [place], [address], 07/17/2023 15:11:47 07/17/20 23 07/17/2023 CBC/C OMPLE TE BLD COUNT W/DIF F NRBC# 0.00 x10'3 /uL Not Available [facility] (Lab) [address] [place], [address], 07/17/2023 15:11:47 07/17/20 23 07/17/2023 HEMOG LOBIN A1C HA1C 5.7 % 4.0-6. 0 Diabe antony Scree philippe Crite [place]: <5.7% Consi stent with absen ce of diabe antony 5.7-6 .4% Consi stent with incre ased risk for diabe antony (pred iabet es) >OR=6 .5% Consi stent with diabe antony REFER ENCE: Diabe antony Care 2016, 39(Damian ppl.1 ):s13 -s22 Not Available [facility] (Lab) [address] [place], [address], 07/17/2023 16:17:23 07/17/20 23 07/17/2023 COMPR EHENS SHARON METAB OLIC PANEL sodium 142 mmol/ L 137-14 5 Not Available [facility] (Lab) [address] [place], [address], 07/17/2023 17:56:59 07/17/20 23 07/17/2023 COMPR EHENS SHARON METAB OLIC PANEL potassium 4.3 mmol/ L 3.5-5. 1 Not Available [facility] (Lab) [address] [place], [address], 07/17/2023 17:56:59 07/17/20 23 07/17/2023 COMPR EHENS SHARON METAB OLIC PANEL chloride 107 mmol/ L 98-107 Not Available [facility] (Lab) [address] [place], [address], 07/17/2023 17:56:59 07/17/20 23 07/17/2023 COMPR EHENS SHARON METAB OLIC PANEL carbon dioxide 29 mmol/ L 22-30 Not Available [facility] (Lab) [address] [place], [address], 07/17/2023 17:56:59 07/17/20 23 07/17/2023 COMPR EHENS SHARON METAB OLIC PANEL anion gap 10.3 mmol/ L 14-22 low Not Available [facility] (Lab) [address] [place], [address], 07/17/2023 17:56:59 07/17/20 23 07/17/2023 COMPR EHENS SHARON METAB OLIC PANEL glucose 82 mg/dL 70-99 Not Available [facility] (Lab) [address] [place], [address], 07/17/2023 17:56:59 07/17/20 23 07/17/2023 COMPR EHENS SHARON METAB OLIC PANEL BUN 14 mg/dL 8-19 Not Available [facility] (Lab) [address] [place], [address], 07/17/2023 17:56:59 07/17/20 23 07/17/2023 COMPR EHENS SHARON METAB OLIC PANEL creatinine 0.96 mg/dL 0.66-1 .25 Not Available [facility] (Lab) [address] [place], [address], 07/17/2023 17:56:59 07/17/20 23 07/17/2023 COMPR EHENS SHARON METAB OLIC PANEL GFR >60 Refer ence Range : [place] ge GFR Healt hy Adult : >60 mL/mi n/1.7 3 m2 Chron ic Kidne y Disea se: 15-60 mL/mi n/1.7 3 m2 Kidne y Failu re: <15/m L/min /1.73 m2 www.n iddk. nih.g ov The MDRD study equat ion has not been valid ated in child rosales <18 years of age; pregn ant women ; the elder ly >85 years of age; or in some racia l or ethni c subgr oups, such as [facility] nics. Outsi de the valid ated james eters , estim ated GFR is less accur ate, requi ring clini wayne judgm ent on a case- by-ca se basis . Clini wayne inter preta tion for other races and ages must be made by the clini andrea. The MDRD study equat ion has not been valid ated for the evalu ation of serum creat inine relat ed to nutri joseph l statu s or medic ation usage . For perso ns <18 years of age, a pedia tric GFR calcu lator is avail able on the [facility] websi te: https ://sommer juan.paulo acevedo.o rg/pr ofess ional s/kdo qi/gf r_cal culat or Not Available [facility] (Lab) [address] [place], [address], 07/17/2023 17:56:59 07/17/20 23 07/17/2023 COMPR EHENS SHARON METAB OLIC PANEL alkaline phosphatase 41 U/L 38-126 Not Available [facility] (Lab) [address] [place], [address], 07/17/2023 17:56:59 07/17/20 23 07/17/2023 COMPR EHENS SHARON METAB OLIC PANEL alanine aminotransfe rase 11 U/L 0-50 Not Available [facility] (Lab) [address] [place], [address], 07/17/2023 17:56:59 07/17/20 23 07/17/2023 COMPR EHENS SHARON METAB OLIC PANEL aspartate aminotransfe rase 21 U/L 15-46 Not Available [facility] (Lab) [address] [place], [address], 07/17/2023 17:56:59 07/17/20 23 07/17/2023 COMPR EHENS SHARON METAB OLIC PANEL bilirubin, total 0.60 mg/dL 0.20-1 .30 Not Available [facility] (Lab) [address] [place], [address], 07/17/2023 17:56:59 07/17/20 23 07/17/2023 COMPR EHENS SHARON METAB OLIC PANEL calcium 8.9 mg/dL 8.4-10 .2 Not Available [facility] (Lab) [address] [place], [address], 07/17/2023 17:56:59 07/17/20 23 07/17/2023 COMPR EHENS SHARON METAB OLIC PANEL total protein 6.1 g/dL 6.3-8. 2 low Not Available [facility] (Lab) [address] [place], [address], 07/17/2023 17:56:59 07/17/20 23 07/17/2023 COMPR EHENS SHARON METAB OLIC PANEL albumin 3.7 g/dL 3.0-4. 4 Not Available [facility] (Lab) [address] [place], [address], 07/17/2023 17:56:59 07/17/20 23 07/17/2023 COMPR EHENS SHARON METAB OLIC PANEL globulin 2.4 g/dL 2.6-4. 2 low Not Available [facility] (Lab) [address] [place], [address], 07/17/2023 17:56:59 07/17/20 23 07/17/2023 COMPR EHENS SHARON METAB OLIC PANEL A/G ratio 1.5 ratio 1.0-2. 0 Not Available [facility] (Lab) [address] [place], [address], 07/17/2023 17:56:59 07/17/2007/17/2023 LIPID PANEL cholesterol 84 mg/dL 140-19 9 low [facility] NSUS RECOM MENDA TION FOR RODERICK STERO L: ADULT CHILD LOW RISK: <200 <170 BORDE RLINE : <200- 239 ----- HIGH RISK: >240 >200 Not Available [facility] [facility] (Lab) [address] [place], [address], 07/17/2023 17:57:04 07/17/20 23 07/17/2023 LIPID PANEL triglyceride s 122 mg/dL 0-150 [facility] NSUS REPOR T RECOM MENDA TION FOR TRIGL YCERI JOHN: ADULT CHILD LOW RISK: <150 ----- BODER LINE: 150-1 99 ----- HIGH RISK: >200 ----- Not Available [facility] (Lab) [address] [place], [address], 07/17/2023 17:57:04 07/17/20 23 07/17/2023 LIPID PANEL HDL cholesterol 27 mg/dL 40- low Not Available [facility] (Lab) [address] [place], [address], 07/17/2023 17:57:04 07/17/20 23 07/17/2023 LIPID PANEL LDL cholesterol, calculated 33 mg/dL 0-130 [facility] NS[facility] REPOR T RECOM MENDA TIONS FOR LDL: ADULT CHILD LOW RISK <130 <110 (OPTI MAL LDL) <100 ----- BORDE RLINE : 130-1 59 ----- HIGH RISK: >160 >130 A TRIGL YCERI DE RESUL T >400 INVAL IDATE S THE CALCU LATIO N FOR LDL FRACT IONAT ION - THE LDL RESUL T WILL NOT BE REPOR NIKKY. Not Available [facility] (Lab) [address] [place], [address], 07/17/2023 17:57:04 07/17/20 23 07/17/2023 PSA SCREE N PSA medicare screen 1.55 NG/mL 0.00-4 .00 Not Available [facility] (Lab) [address] [place], [address], 07/17/2023 18:00:04 02/03/20 24 02/03/2024 CT, abdom en + pelvi s, w/ contr ast [facility] [address] [place] [address] Patien t Name: JH HOWE Access ion #: [id number] Sex: M : 1949 8 Dictat ed By: Omkar Jimenez ms Attend ing Physic randy: EMM[facility]T [facility]andy: EMMETT CAMARGO Exam Date: 2023 09:42 AM Exam Name: CT ABDOME N PELVIS W Admitt ing Diagno sis(es ): Exam: CT ABDOME N PELVIS W Histor y: unspec abd pain Compar clive Study: None availa ble at time of dictat ion. Contra st: Type of contra st: Isovue [address] inject ed: [address] wasted : 0 900 mL barium sulfat e oral contra st. 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 During the uneven tful, intrav enous admini strati on of contra st materi al, multis lice data acquis ition was obtain ed throug h the abdome n and pelvis . The data set was subseq uently recons tructe d into axial images . Images were review ed on a work statio n using a combin ation of axial and multip lanar using a variet y of window levels and settin gs. Radiat ion Dose Inform ation: CT Dose: CTDI volume is 23.9 mGy. Dose-l ength produc t is 1329 mGy*cm FINDIN GS: Lung Bases: No acute or signif icant lung base findin g. Normal heart size. No pleura l or perica rdial effusi on. Page 1 [facility] [address] [place] [address] Patien t Name: JH HOWE Access ion #: [id number] Sex: M : 1949 8 Dictat ed By: Omkar Jimenez ms Attend ing Physic randy: WON PATRICK [facility] Physic randy: EMMETT CAMARGO Exam Date: 2023 09:42 AM Exam Name: CT ABDOME N PELVIS W Admitt ing Diagno sis(es ): Liver: The liver is normal in size. No focal lesion s. Normal hepati c vascul ar enhanc ement. Gallbl adder and Biliar y Tree: Multip le gallst ones. No biliar y ductal dilata tion Spleen : Unrema rkable Pancre as: The pancre as is normal in appear ance withou t focal lesion s or abnorm al enhanc ement. Adrena l Glands : Unrema rkable Kidney s: Kidney s demons trate normal symmet prasad enhanc ement withou t focal lesion s, calcul i or hydron ephros is. Bilate ral renal cysts. Nonspe cific bilate ral perine phric fat strand ing Bladde r: There is mural thicke philippe of the urinar y bladde r with surrou nding fat strand ing. Bowel: The stomac h is grossl y normal in appear ance. Contra st opacif ies the small bowel loops. Small bowel and colon are normal in calibe r and distri bution . The append ix is not visual ized; howeve r, no second luis findin gs of acute append icitis identi fied. Ascite s: Absent Lympha denopa thy: No mesent gladis, retrop eriton eal or peripo rtal lympha denopa thy. Abdomi nal Wall and Mesent francoise: Unrema rkable . Vascul ature: The visual ized abdomi nal aorta is normal in size and calibe r. Abdomi nal and pelvic vessel s demons trate normal enhanc ement. Pelvic Organs : Unrema rkable Muscul oskele marion: No aggres sive focal bony lesion s, acute fractu res or disloc ation. Multil evel interv ertebr al disc degene ration . Soft tissue s: Unrema rkable . IMPRES EDITA: 1. Mural wall thicke philippe of the urinar y bladde r with bilate ral perine phric fat strand ing. Correl ation for cystit is and urinar y tract infect ion recomm ended. 2. Cholel ithias is. Page 2 [facility] [address] [facility] [place] [address] Patien t Name: JH HOWE Access ion #: [id number] Sex: M : 1949 8 Dictat ed By: Omkar Jimenez ms Attend ing Physic randy: WON PATRICK Physic randy: EMMETT CAMARGO Exam Date: 2023 09:42 AM Exam Name: CT ABDOME N PELVIS W Admitt ing Diagno sis(es ): All CT scans at this medica l facili ty are perfor med using dose modula tion techni ques as approp riate to a perfor med exam includ ing the follow ing: Automa nikky exposu re contro l was utiliz ed; adjust ment of the MA and/or KV accord ing to patien t size; and use of iterat sharon recons tructi on techni que. Electr onical ly Signed by: Omkar Jimenez ms at 2023 10:14: 17 AM Page 3 [email or web address] [facility] (Imaging) [address] [place], [address], 02/25/2024 10:26:59 05/06/20 XR, knee, 3 view No observ ation record ed. [email or web address] [address], [place], [address], 05/06/2024 15:32:57 07/02/20 24 07/01/2024 compl ete PFT w/ [facility] hodil ator haley metry * No observ ation record ed. BARCODE Not Available 2023 09:40:38 Result Notes Documentation Provider Name and Address Organization Details Recorded Time Ct, Abdomen + Pelvis, W/ Contrast : [facility] [address] [place] [address] Patient Name: CHRISTOPHER HOWE Sex: M : 1950 Dictated By: Mary Carmen Mariee Attending Physician: YARELIS CAMARGO Ordering Physician: YARELIS CAMARGO Exam Date: 02/03/2024 09:42 AM Exam Name: CT ABDOMEN PELVIS W Admitting Diagnosis(es): Exam: CT ABDOMEN PELVIS W History: unspec abd pain Comparison Study: None available at time of dictation. Contrast: Type of contrast: Isovue 370 Contrast injected: 100 mL Contrast wasted: 0 900 mL barium sulfate oral contrast. TECHNIQUE: A digital agricultural engineer image was obtained. During the uneventful, intravenous administration of contrast material, multislice data acquisition was obtained through the abdomen and pelvis. The data set was subsequently reconstructed into axial images. Images were reviewed on a work station using a combination of axial and multiplanar using a variety of window levels and settings. Radiation Dose Information: CT Dose: CTDI volume is 23.9 mGy. Dose-length product is 1329 mGy*cm FINDINGS: Lung Bases: No acute or significant lung base finding. Normal heart size. No pleural or pericardial effusion. Page 1 [facility] [address] [place] [address] Patient Name: CHRISTOPHER HOWE Sex: M : 1950 Dictated By: Mary Carmen Mariee Attending Physician: WON SANTOYO Ordering Physician: YARELIS CAMARGO Exam Date: 02/03/2024 09:42 AM Exam Name: CT ABDOMEN PELVIS W Admitting Diagnosis(es): Liver: The liver is normal in size. No focal lesions. Normal hepatic vascular enhancement. Gallbladder and Biliary Tree: Multiple gallstones. No biliary ductal dilatation Spleen: Unremarkable Pancreas: The pancreas is normal in appearance without focal lesions or abnormal enhancement. Adrenal Glands: Unremarkable Kidneys: Kidneys demonstrate normal symmetric enhancement without focal lesions, calculi or hydronephrosis. Bilateral renal cysts. Nonspecific bilateral perinephric fat stranding Bladder: There is mural thickening of the urinary bladder with surrounding fat stranding. Bowel: The stomach is grossly normal in appearance. Contrast opacifies the small bowel loops. Small bowel and colon are normal in caliber and distribution. The appendix is not visualized; however, no secondary findings of acute appendicitis identified. Ascites: Absent Lymphadenopathy: No mesenteric, retroperitoneal or periportal lymphadenopathy. Abdominal Wall and Mesentery: Unremarkable. Vasculature: The visualized abdominal aorta is normal in size and caliber. Abdominal and pelvic vessels demonstrate normal enhancement. Pelvic Organs: Unremarkable Musculoskeletal: No aggressive focal bony lesions, acute fractures or dislocation. Multilevel intervertebral disc degeneration. Soft tissues: Unremarkable. IMPRESSION: 1. Mural wall thickening of the urinary bladder with bilateral perinephric fat stranding. Correlation for cystitis and urinary tract infection recommended. 2. Cholelithiasis. Page 2 [facility] [address] [place] [address] Patient Name: CHRISTOPHER HOWE Sex: M : 1950 Dictated By: Mary Carmen Mariee Attending Physician: WON SANTOYO Ordering Physician: YARELIS CAMARGO Exam Date: 02/03/2024 09:42 AM Exam Name: CT ABDOMEN PELVIS W Admitting Diagnosis(es): All CT scans at this medical facility are performed using dose modulation techniques as appropriate to a performed exam including the following: Automated exposure control was utilized; adjustment of the MA and/or KV according to patient size; and use of iterative reconstruction technique. Page 3 Muriel Leach APRN [address], [place], [address], [email or web address] 02/25/2024 10:26:59 Problems Name Problem SNOMED Code Status Onset Date Resolution Date Notes Provider Name and Address Organization Details Recorded Time Epidermoi d cyst of skin 816284486 Active 2022 Not Available [facility] 4 04:19:05 Moderate chronic obstructi ve pulmonary disease 613857089 Active 2023 Kev Ludwig MD [address], [place], [address] , [email or web address] 4 13:50:14 Hearing loss 37126996 Active 2021 Not Available [facility] 4 04:19:05 Benign prostatic hyperplas ia 633076045 Active Not Available [facility] 4 04:19:05 Dyspnea 703112069 Completed Not Available [facility] 3 04:50:47 Anemia 019236835 Active Not Available [facility] 4 04:19:05 Knee pain Completed Not Available [facility] 3 04:50:48 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 52326044396 9100 Active 2021 Not Available [facility] 4 04:19:05 Osteoarth ritis of left knee joint 17237410055 9109 Active 2021 Not Available [facility] 4 04:19:05 Osteoarth ritis of right knee joint 26693997057 9100 Active 2021 Not Available [facility] 4 04:19:05 Depressiv e disorder 77530494 Active Not Available [facility] 4 04:19:05 Multiple skin tags 557564249 Completed Not Available [facility] 3 04:50:48 Otitis 49835631 Completed Not Available [facility] 3 04:50:49 Type 2 diabetes mellitus 56823357 Active Not Available [facility] 4 04:19:05 Chronic systolic heart failure 159032323 Active 2021 Not Available [facility] 4 04:19:05 Cough 69124627 Completed Not Available [facility] 3 04:50:49 Coronary arteriosc lerosis 01086150 Active Not Available [facility] 4 04:19:05 Essential hypertens ion 58048908 Active Not Available [facility] 4 04:19:05 Rhinitis 09852622 Completed Not Available [facility] 3 04:50:50 Sleep apnea 85016274 Active Not Available [facility] 4 04:19:05 Cardiomyo delilah 31097009 Active 2022 Not Available [facility] 4 04:19:05 Problem Notes None recorded. Procedures Surgical History Date Name Laterality Status Provider Name and Address Organization Details Recorded Time 04/30/20 23 Excision Cyst Multilayer completed Demarcus Martinez MD [address] [place] [address], [place] [address], [place], [address], [facility] [employer] [facility] 04/30/2023 12:12:04 09/09/19 19 Laser surgery of prostate completed Not Available [facility] 10/10/2022 04:43:03 03/24/20 18 Removal of sperm duct(s) completed Not Available [facility] 10/10/2022 04:43:03 03/24/20 18 Revise spermatic cord veins completed Not Available [facility] 10/10/2022 04:43:03 03/24/20 18 incision of spermatic cord completed Not Available [facility] 10/10/2022 04:43:03 08/18/19 16 Knee arthroscopy/surg francoise completed Not Available [facility] 10/10/2022 04:43:03 excision of varicocele completed Not Available [facility] 10/10/2022 04:43:03 repair of meniscus completed Not Available [facility] 10/10/2022 04:43:03 light green SF stain method completed Not Available [facility] 10/10/2022 04:43:03 Bypass completed Not Available [facility] 08/2022 04:43:03 chondrectomy of semilunar cartilage of knee completed Not Available [facility] 10/10/2022 04:43:03 Cataract Surgery completed Not Available [facility] 10/10/2022 04:43:03 Imaging Results None recorded. Procedure Notes None recorded. Medical Equipment None Reported. Allergies Allergen ID Allergen Name Allergen Category Reaction Reaction Severity Criticality Documentation Date Start Date Code Code System Note Provider Name and Address Organization Details Recorded Time 7672 Iodinated contrast media (substanc e) medicatio n decreased blood pressure Not available Not available 10/10/2022 05790 2004 SNOMED Not Available [facility] 3 05:02:39 7674 iodine medicatio n other Not available Not available 10/10/2022 5933 RxNorm Not Available [facility] 3 05:02:40 Medications Name Sig Start Date Stop Date Status Note LastModified by Organization Details LastModified Time celecoxib 200 mg capsule Take 1 capsule every day by oral route. active Not Available Not Available No t Available furosemid e 40 mg tablet TAKE 1 TABLET DAILY DIRECTED 05/01 completed Not Available Not Available Not Available terazosin 5 mg capsule TAKE 1 CAPSULE DAILY DIRECTED 03/28 completed Not Available Not Available Not Available carvedilo l 25 mg tablet TAKE 1 TABLET BY MOUTH TWICE A DAY active Not Available Not Available No t Available prednison e 10 mg tablet TAKE 1 TABLET BY MOUTH 3X DAILY X 3 DAYS, THEN 2X DAILY X 2 DAYS, THEN DAILY X 1 DAY 05/01 completed Not Available Not Available Not Available doxycycli ne hyclate 100 mg capsule TAKE 1 CAPSULE BY MOUTH TWICE A DAY 06/26 completed Not Available Not Available Not Available carvedilo l 12.5 mg tablet TAKE 1 TABLET TWICE A DAY DIRECTED active Not Available Not Available No t Available Ceftin 500 mg tablet Take 1 tablet twice a day by oral route for 10 days. 08/09 completed Not Available Not Available Not Available clindamyc in HCl 300 mg capsule TAKE 1 CAPSULE BY MOUTH THREE TIMES A DAY UNTIL GONE 05/06 completed Not Available Not Available Not Available azithromy cathleen 250 mg tablet TAKE 2 TABLETS BY MOUTH TODAY, THEN TAKE 1 TABLET DAILY FOR 4 DAYS 12/09 completed Not Available Not Available Not Available alprazola m 1 mg tablet TAKE 1 TABLET BY MOUTH 3 TIMES A DAY 08/27 completed Not Available Not Available Not Available tizanidin e 4 mg tablet TAKE 1 TABLET BY MOUTH EVERY DAY AT BEDTIME NEEDED FOR BACK SPASMS active Not Available Not Available No t Available benzonata te 200 mg capsule Take 1 capsule 3 times a day by oral route. 03/09 completed Not Available Not Available Not Available phenazopy ridine 200 mg tablet TAKE 1 TABLET BY MOUTH FOUR TIMES A DAY 12/09 completed Not Available Not Available Not Available glipizide 10 mg tablet TAKE 1 TABLET TWICE A DAY DIRECTED 10/26 completed stopped by cardiolo gist Not Available Not Available Not Available prednison e 20 mg tablet TAKE 2 TABLETS BY MOUTH EVERY DAY 02/23 completed Not Available Not Available Not Available Lantus U-100 Insulin 100 unit/mL subcutane ous solution INJECT 50 UNITS UNDER THE SKIN TWICE A DAY DIRECTED active Not Available Not Available No t Available penicilli n V potassium 500 mg tablet TAKE 1 TABLET BY MOUTH FOUR TIMES A DAY UNTIL FINISHED 05/06 completed Not Available Not Available Not Available potassium chloride ER 10 mEq tablet,ex tended release TAKE 1 TABLET DAILY DIRECTED active Not Available Not Available No t Available clopidogr el 75 mg tablet TAKE 1 TABLET DAILY DIRECTED active Not Available Not Available No t Available hydrocodo ne 10 mg-acetam inophen 325 mg tablet TAKE 1-2 TABLETS BY MOUTH EVERY 4-6 HOURS NEEDED 12/09 completed Not Available Not Available Not Available aspirin 81 mg tablet,de layed release Take 1 tablet every day by oral route. 2020 active Not Available Not Available Not Avai lable tramadol 50 mg tablet 1 TABLET EVERY SIX HOURS FOR PAIN active Not Available Not Available No t Available spironola ctone 25 mg tablet active Not Available Not Available No t Available simvastat in 40 mg tablet TAKE 1 TABLET DAILY DIRECTED 08/27 completed Not Available Not Available Not Available prednison e 10 mg tablets in a dose pack Take 1 tab by mouth, 3 times a day for 3 daysTake 1 tab by mouth 2 times a day for 2 daysTake 1 tab by mouth once a day for 1 day 05/01 completed Not Available Not Available Not Available famotidin e 20 mg tablet TAKE 1 TABLET BY MOUTH AT BEDTIME THE DAY BEFORE PROCEDUR E AND 1 TAB THE MORNING OF PROCEDUR E 05/06 completed Not Available Not Available Not Available Nitrostat 0.4 mg sublingua l tablet PLACE 1 TABLET (0.4 MG) BY SUBLINGU AL ROUTE AT THE 1ST SIGN OF ATTACK; MAY REPEAT EVERY 5 MIN UNTIL RELIEF; IF PAIN PERSISTS AFTER 3 TABLETS IN 15 MIN, PROMPT MEDICAL ATTENTIO N IS RECOMMEN DED 05/24 completed Not Available Not Available Not Available tamsulosi n 0.4 mg capsule TAKE 1 CAPSULE BY MOUTH EVERY NIGHT AT BEDTIME FOR PROSTATE active Not Available Not Available No t Available ciproflox acin 0.3 % eye drops 08/22 completed Not Available Not Available Not Available Kenalog 10 mg/mL suspensio n for injection In office injectio n administ ered by the provider active [facility]: [phone] 4- Not Available Not Available Not Available hydrocodo ne 7.5 mg-acetam inophen 325 mg tablet 09/29 completed Not Available Not Available Not Available cephalexi n 500 mg capsule TAKE ONE CAPSULE THREE TIMES DAILY UNTIL ALL TAKEN 05/06 completed Not Available Not Available Not Available metformin 1,000 mg tablet TAKE 1 TABLET BY MOUTH TWICE A DAY active Not Available Not Available No t Available Gentle Laxative (bisacody l) 5 mg tablet,de layed release 10/26 completed Not Available Not Available Not Available lisinopri l 10 mg tablet TAKE 1 TABLET DAILY DIRECTED 12/20 completed Not Available Not Available Not Available prednison e 50 mg tablet TAKE 1 TAB WITH DINNER AND AT BEDTIME THE DAY BEFORE PROCEDUR E, AND 1 TAB THE MORNING OF PROCEDUR E 05/06 completed Not Available Not Available Not Available Banophen 25 mg capsule TAKE 2 CAPSULES BY MOUTH THE MORNING OF PROCEDUR E 05/06 completed Not Available Not Available Not Available monteluka st 10 mg tablet Take 1 tablet every day by oral route. 02/10 /2020 completed Not Available Not Available Not Available levofloxa cathleen 500 mg tablet TAKE 1 TABLET BY MOUTH EVERY DAY FOR 10 DAYS 12/09 completed Not Available Not Available Not Available methylpre dnisolone 4 mg tablets in a dose pack take decreasi ng doses as directed 09/20 completed Not Available Not Available Not Available albuterol sulfate HFA 90 mcg/actua tion aerosol inhaler INHALE 2 PUFFS BY MOUTH EVERY 4 HOURS active Not Available Not Available No t Available fluticaso ne propionat e 50 mcg/actua tion nasal spray,carmine pension [place] 2 sprays every day by intranas al route in the evening. active Not Available Not Available No t Available sertralin e 50 mg tablet Take 1 tablet every day by oral route. 11/19 completed Not Available Not Available Not Available doxycycli ne hyclate 100 mg tablet 02/23 completed Not Available Not Available Not Available tobramyci n 0.3 %-dexamet hasone 0.1 % eye drops,carmine pension 07/23 completed Not Available Not Available Not Available valsartan 40 mg tablet TAKE 1 TABLET BY MOUTH EVERY DAY active Not Available Not Available No t Available eplerenon e 25 mg tablet Take 1 tablet every day by oral route for 90 days. 05/01 completed Not Available Not Available Not Available Restasis 0.05 % eye drops in a dropperet te 09/21 completed Not Available Not Available Not Available Vigamox 0.5 % eye drops 07/23 completed Not Available Not Available Not Available Ciprodex 0.3 %-0.1 % ear drops,carmine pension active Not Available Not Available Not Available rosuvasta tin 20 mg tablet TAKE 1 TABLET BY MOUTH EVERY DAY active Not Available Not Available No t Available rosuvasta tin 40 mg tablet 04/24 completed Not Available Not Available Not Available sildenafi l (pulmonar y hypertens ion) 20 mg tablet take 5 tablets 2 hours prior to intercou rse 09/21 completed Not Available Not Available Not Available aspirin 09/21 completed Not Available Not Available Not Available Refresh P.M. 09/21 completed Not Available Not Available Not Available Slo-Niaci n 09/04 completed Not Available Not Available Not Available lidocaine (PF) 10 mg/mL (1 %) injection solution In office injectio n administ ered by the provider 03/10 completed [facility]: [id number] 01-26 Not Available Not Available Not Available lidocaine (PF) 5 mg/mL (0.5 %) injection solution Take 60 mg by injectio n route. 05/01 completed Not Available Not Available Not Available Durezol 0.05 % eye drops 07/23 completed Not Available Not Available Not Available Gavilyte- C 240 gram-22.7 2 gram-6.72 gram-5.84 gram oral solution 09/20 completed Not Available Not Available Not Available GaviLyte- G 236 gram-22.7 4 gram-6.74 gram-5.86 gram oral solution 10/26 completed Not Available Not Available Not Available BD Ultra-Fin e Danielle Pen Needle 32 gauge x 5/32 06/26 completed Not Available Not Available Not Available rivaroxab an 10/31 completed Not Available Not Available Not Available ropivacai ne (PF) 5 mg/mL (0.5 %) injection solution Take 20 mg by injectio n route. active Not Available Not Available No t Available Unifine Pentips 31 gauge x 3/16 needle USE DIRECTED active Not Available Not Available No t Available icosapent ethyl 1 gram capsule TAKE 2 CAPSULES BY MOUTH TWICE A DAY active Not Available Not Available No t Available Ilevro 0.3 % eye drops,carmine pension 07/23 completed Not Available Not Available Not Available Farxiga 10 mg tablet TAKE 1 TABLET BY MOUTH EVERY DAY 05/06 completed Not Available Not Available Not Available Entresto 24 mg-26 mg tablet Take 1 tablet twice a day by oral route for 90 days. active Not Available Not Available No t Available Tresiba FlexTouch U-100 insulin 100 unit/mL (3 mL) subcutane ous pen INJECT 100 UNITS UNDER THE SKIN DAILY DIRECTED active Not Available Not Available No t Available Xultophy 100/3.6 100 unit-3.6 mg/mL (3 mL) subcutane ous insulin pen 16units daily 05/23 completed Not Available Not Available Not Available Ozempic 1 mg/dose (2 mg/1.5 mL) subcutane ous pen injector 04/20 completed duplicat e Not Available Not Available Not Available Ozempic 0.25 mg or 0.5 mg (2 mg/1.5 mL) subcutane ous pen injector Inject every week by subcutan eous route. active Not Available Not Available No t Available Toujeo Max U-300 SoloStar 300 unit/mL (3 mL) subcutane ous insulin pen INJECT 80 UNITS UNDER THE SKIN ONCE DAILY IN THE MORNING. active Not Available Not Available No t Available Xarelto 2.5 mg tablet TAKE 1 TABLET BY MOUTH TWICE A DAY active Not Available Not Available No t Available Ozempic 1 mg/dose (4 mg/3 mL) subcutane ous pen injector INJECT 1 MG SUBCUTAN EOUSLY ONE TIME PER WEEK 05/06 completed Not Available Not Available Not Available Kerendia 20 mg tablet TAKE 1 TABLET BY MOUTH EVERY DAY active Not Available Not Available No t Available Ozempic 2 mg/dose (8 mg/3 mL) subcutane ous pen injector INJECT 2 MG SUBCUTAN EOUSLY ONCE WEEKLY active Not Available Not Available No t Available Vitals Date Recorded Body height Body mass index (BMI) Body weight Heart rate Body temperature Respiratory rate Oxygen saturation Oxygen saturation in Arterial blood by Pulse oximetry Systolic blood pressure Diastolic blood pressure Provider Name and Address Organization Details Last Updated DateTime 3 185.42 cm 31.4 kg/m2 171155. 98 g 100 /min 97.7 [degF] 16 /min 97 % 97 % 130 mm[Hg] 80 mm[Hg] Barbara ELY [facility] 3 11:19:53 Date Recorded Body height Body mass index (BMI) Body weight Body temperature Heart rate Oxygen saturation Oxygen saturation in Arterial blood by Pulse oximetry Systolic blood pressure Diastolic blood pressure Provider Name and Address Organization Details Last Updated DateTime 3 185.42 cm 31.4 kg/m2 467359. 98 g 98.8 [degF] 98 /min 98 % 98 % 132 mm[Hg] 82 mm[Hg] JANETH Harris [facility] [place] [facility] 3 11:42:36 Date Recorded Body height Body mass index (BMI) Body weight Provider Name and Address Organization Details Last Updated DateTime 05/06/2024 185.42 cm 32.2 kg/m2 461165.54 g Maryellen Sohan [facility] 05/06/2024 15:30:14 Date Recorded Body height Body mass index (BMI) Body weight Body temperature Heart rate Respiratory rate Oxygen saturation Oxygen saturation in Arterial blood by Pulse oximetry Systolic blood pressure Diastolic blood pressure Provider Name and Address Organization Details Last Updated DateTime 3 185.42 cm 31.4 kg/m2 272194. 98 g 98.8 [degF] 98 /min 16 /min 98 % 98 % 132 mm[Hg] 82 mm[Hg] Barbara Noel [facility] 3 11:18:41 Date Recorded Body height Body mass index (BMI) Body weight Body temperature Heart rate Systolic blood pressure Diastolic blood pressure Provider Name and Address Organization Details Last Updated DateTime 3 185.42 cm 32.2 kg/m2 211325. 54 g 98.2 [degF] 71 /min 122 mm[Hg] 70 mm[Hg] Svetlana Brannon [facility] 3 12:28:53 Social History Question Answer Notes LastModified by Organization Details LastModified Time Tobacco Smoking Status Current Every Day Smoker Not Available [facility] 10/10/2022 04:12:42 Do You Have An Advance Directive? No MIGRATION.030 [id number] Information not available 10/10/2022 Do You Wear A Helmet When Biking? No MIGRATION.030 016052 Information not available 10/10/2022 Are You Blind Or Do You Have Difficulty Seeing? No MIGRATION.0301 641987 Information not available 10/10/2022 What Is Your Level Of Caffeine Consumption? Moderate MIGRATION.0301 592643 Information not available 10/10/2022 How Much Tobacco Do You Chew? None MIGRATION.0301 783034 Information not available 10/10/2022 In The 14 Days Before Symptom Onset, Have You Had Close Contact With A Laboratory-confi rmed COVID-19 While That Case Was Ill? No MIGRATION.0301 768882 Information not available 10/10/2022 In The 14 Days Before Symptom Onset, Have You Had Close Contact With A Person Who Is Under Investigation For COVID-19 While That Person Was Ill? No MIGRATION.0301 049760 Information not available 10/10/2022 Are You Deaf Or Do You Have Serious Difficulty Hearing? No MIGRATION.0301 961882 Information not available 10/10/2022 What Type Of Diet Are You Following? REGULAR MIGRATION.0301 128681 Information not available 10/10/2022 Which Illicit Or Recreational Drugs Have You Used? None MIGRATION.030 890919 Information not available 10/10/2022 What Is The Highest Grade Or Level Of School You Have Completed Or The Highest Degree You Have Received? VR01806-0 MIGRATION.030 382708 Information not available 10/10/2022 Have There Been Any Changes To Your Family Or Social Situation? No MIGRATION.0301 617163 Information not available 10/10/2022 What Is The Fluoride Status Of Your Home? Unknown MIGRATION.0301 699409 Information not available 10/10/2022 Are There Any Guns Present In Your Home? Yes MIGRATION.0301 140552 Information not available 10/10/2022 Do You Use Insect Repellent Routinely? No MIGRATION.0301 378878 Information not available 10/10/2022 Where Do You Live? [place]LevelHouse MIGRATION.0301 731401 Information not available 10/10/2022 Do You Have A Medical Power Of Senior Controls Technician? No MIGRATION.0301 636609 Information not available 10/10/2022 What Was The Date Of Your Most Recent Tobacco Screening? 07/17/2023 [email or web address] Information not available 07/17/2023 Have You Ever Been Counseled For Unhealthy Alcohol Use? No MIGRATION.0301 037768 Information not available 10/10/2022 Do You Have Any Pets? Yes MIGRATION.0301 334070 Information not available 10/10/2022 What Is Your Relationship Status? MIGRATION.0301 627012 Information not available 10/10/2022 Do You Use Your Seat Belt Or Car Seat Routinely? Yes MIGRATION.0301 534647 Information not available 10/10/2022 Do You Have Smoke And Carbon Monoxide Detectors In Your Home? Yes MIGRATION.0301 448210 Information not available 10/10/2022 At What Age Did You Start Smoking Tobacco? 16 MIGRATION.0301 257466 Information not available 10/10/2022 Are You Passively Exposed To Smoke? No MIGRATION.0301 812735 Information not available 10/10/2022 Are There Any Smokers In Your House? Yes Pt Smokes MIGRATION.0301 573615 Information not available 10/10/2022 How Much Tobacco Do You Smoke? 1 PPD MIGRATION.0301 392861 Information not available 10/10/2022 What Types Of Sporting Activities Do You Participate In? None MIGRATION.0301 580837 Information not available 10/10/2022 Do You Use Sunscreen Routinely? Yes MIGRATION.0301 189953 Information not available 10/10/2022 How Many Years Have You Smoked Tobacco? 50 MIGRATION.0301 127884 Information not available 10/10/2022 Have You Recently Traveled Abroad? No MIGRATION.0301 534992 Information not available 10/10/2022 Do You Have Difficulty Walking Or Climbing Stairs? No MIGRATION.0301 982016 Information not available 10/10/2022 Do You Have Any Dietary Restrictions? No MIGRATION.0301 972322 Information not available 10/10/2022 Sex: Male Functional Status Question Answer Note LastModified by Organizat ion Details LastModified Time Do you use any illicit or recreational drugs? No MIGRATION.98002 51883 Information not available 10/10/2022 Do you or have you ever used any other forms of tobacco or nicotine? No MIGRATION.52639 76252 Information not available 10/10/2022 What is your level of alcohol consumption? Occasional MIGRATION.78719 67120 Information not available 10/10/2022 Do you or have you ever used smokeless tobacco? Never used smokeless tobacco MIGRATION.18365 86840 Information not available 10/10/2022 Do you have transportation difficulties? No MIGRATION.42181 20627 Information not available 10/10/2022 Are you able to walk? YESWOREST MIGRATION.89996 48890 Information not available 10/10/2022 Do you have difficulty doing errands alone? No MIGRATION.65235 74643 Information not available 10/10/2022 Are you able to care for yourself? 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 No MIGRATION.48398 75285 Information not available 10/10/2022 Do you or have you ever used e-cigarettes or vape? Never used electronic cigarettes MIGRATION.01992 20237 Information not available 10/10/2022 What is your exercise level? None MIGRATION.78989 00715 Information not available 10/10/2022 Mental Status Question Answer Note LastModified by Organizat ion Details LastModified Time Do you feel stressed (tense, restless, nervous, or anxious, or unable to sleep at night)? [id number] MIGRATION.93673614 26 Information not available 10/10/2022 Do you have difficulty concentrating, remembering or making decisions? No MIGRATION.59890656 26 Information not available 10/10/2022 Family History Relationship Description Onset Age of this Age Resolved Age Notes LastModified by Organization Details LastModified Time Father Malignant neoplasm of lung 64 MIGRATION.749 [id number] Not available 10/10/2022 04:43:04 Father Family history of malignant neoplasm MIGRATION.125 7566978 Not available 10/10/2022 04:43:04 Mother Heart disease MIGRATION.690 4300184 Not available 10/10/2022 04:43:04 Mother Diabetes mellitus MIGRATION.910 9320409 Not available 10/10/2022 04:43:04 Unspecified Relation Family history of stroke MIGRATION.028 9462657 Not available 10/10/2022 04:43:04 Brother Family history of malignant neoplasm MIGRATION.326 5503021 Not available 10/10/2022 04:43:04 Medical History Condition Response NERVE DISEASE N BLINDNESS N RHEUMATIC FEVER N KIDNEY STONES N BLADDER PROBLEMS N MRSA N CARPAL TUNNEL SYNDROME N OTHER # 1 N POLIO N LUNG DISEASE/DISORDER N HISTORY OF DRUG ABUSE N RADIATION / CHEMOTHERAPY N COPD N Other # 2 N SPORTS INJURY N ANKLE PAIN N BLOOD DISEASES N EAR OR HEARING PROBLEMS N MUMPS N SCHIZOPHRENIA N SHINGLES N SHOULDER PAIN N BOWEL PROBLEMS N DEPRESSION (INCLUDING POST ) N STROKE/TIA N ULCERS N KNEE PAIN N BENIGN PROSTATIC HYPERPLASIA N MEASLES N MYOCARDIAL INFARCTION N OBESITY N GERD/NAUSEA N ANEURYSM N URINARY/BLADDER/KIDNEY PROBLEMS N CORONARY ARTERY DISEASE (CAD) N ADDICTION CONCERNS N Impotence N ENDOMETRIOSIS N USE OF BLOOD THINNERS N SKIN PROBLEMS N EMPHYSEMA N GASTROINTESTINAL DISORDER N PERIPHERAL VASCULAR DISEASE N MUSCLE,JOINT OR BONE PROBLEMS N DVT N STOMACH ULCERS N GASTROINTESTINAL BLEEDING N BLOOD CLOTS N ASTHMA N CATARACTS N USE OF NSAIDS N CONCUSSION OR SPINAL TRAUMA N ERECTILE DYSFUNCTION N VARICOSITIES N GI PROBLEMS N Low Testosterone N NEUROPATHY N INFERTILITY N AIDS/HIV N FRACTURES N CHEMOTHERAPY / RADIATION N LIVER DISEASE N MALE HYPOGONADISM N HYPERTENSION N ELBOW PAIN N Deficiency N TOURETTE'S N Metal allergy N ANXIETY DISORDER N BLOOD TRANSFUSION N ANEMIA/BLOOD DISORDER N CHRONIC EAR INFECTIONS N BIPOLAR DISORDER N BRONCHITIS N OSTEOARTHRITIS N TUBERCULOSIS N GLAUCOMA N FOOT PROBLEM N HEART VALVE DISORDERS N DIVERTICULITIS N SLEEP APNEA Y CHICKENPOX N SOFT TISSUE INJURY N ALLERGIES/HAYFEVER N INFECTIOUS DISEASE N PROSTATE Y HEART ARRHYTHMIA N INSOMNIA N RHEUMATOID ARTHRITIS N HIGH CHOLESTEROL / HYPERLIPIDEMIA N EYE PROBLEMS N HYPERTHYROIDISM N EDEMA N CHRONIC PAIN SYNDROME N HYPOTHYROIDISM N CONSTIPATION N CAROTID BLOCKAGE N BACK / NECK PROBLEMS N HAVE YOU BEEN [facility]PITALIZ[facility] THE PAST [facility] ? N ATHEROSCLEROSIS Y BURSITIS N BREAST PROBLEMS N HERNIATED DISC N DIALYSIS N ECZEMA N FIBROMYALGIA N OSTEOPOROSIS N ARTHRITIS Y NO SIGNIFICANT PAST MEDICAL HISTORY N PERIPHERAL NEUROPATHY N APPENDICITIS N DIABETES, TYPE Y BAD TEETH N ENT N HEARTBURN / REFLUX N AUTISM SPECTRUM DISORDER (ASD) N HEPATITIS / LIVER DISEASE N GOUT N SLEEP DISORDER N ALZHEIMER'S DISEASE N Brain Problems N DEMENTIA N HERPES N SEIZURES/EPILEPSY N HEADACHES/MIGRAINES N VASCULAR DISEASE N PACEMAKER N Blood Disorder N HIP PAIN N DIZZINESS N HEAD TRAUMA OR INJURY N KIDNEY DISEASE N HEART DISEASE/HEART PROBLEMS N MULTIPLE SCLEROSIS N CANCER: SPECIFY N CARDIAC ARRHYTHMIA N ANESTHESIA COMPLICATIONS N ATRIAL FIBRILLATION N Gall Stones N PULMONARY EMBOLISM N AUTOIMMUNE DISEASE N Immunizations Vaccine Type Date Status Note Provider Nam e and Address Organization Details Recorded Time COVID-19, mRNA, LNP-S, PF, 30 mcg/0.3 mL dose 1 completed Not Available [facility] 08/24/2023 04:19:05 COVID-19, mRNA, LNP-S, PF, 30 mcg/0.3 mL dose 1 completed Not Available [facility] 08/24/2023 04:19:05 Influenza, split virus, trivalent, preservative 4 completed Not Available [facility] 08/24/2023 04:19:05 Influenza, high-dose, quadrivalent, PF 3 completed Yarelis Camargo MD [address] [facility], [place], [address], [facility] 07/19/2023 19:26:26 Past Encounters Encounter ID Performer Location Encounter Start Date Encounter Closed Date Diagnosis/Indication Diagnosis SNOMED-CT Code Diagnosis ICD10 Code Diagnosis Note [id number] Yarelis Camargo MD [facility] Internal Med [place] [address] [place] [address] y , [place] [address] 12/29/2020 00:00:00 12/31/2020 21:12:38 [id number] Yarelis Camargo MD [facility] Internal [place] [address] [place] [address] [place] [address] 01/17/2021 00:00:00 01/17/2021 21:36:19 [id number] Yarelis Camargo MD [facility] Internal Med [place] [address] [place] [address] y , [place] [address] 02/23/2021 00:00:00 02/23/2021 22:30:58 [id number] Yarelis Camargo MD [facility] Internal Med [place] [address] [place] [address] y , [place] [address] 04/20/2021 00:00:00 04/20/2021 21:40:00 [id number] Yarelis Camargo MD [facility] Internal Med [place] [address] [place] [address] [place] [address] 10/26/2021 00:00:00 11/12/2021 22:37:25 [id number] Yarelis Camargo MD [facility] Internal Med [facility] [address], [facility] [address] [place] [address] 01/26/2022 00:00:00 02/17/2022 18:58:25 [id number] Zhao Finn MD [facility] [place] [address] [facility] [address] [place] [address] 02/01/2022 00:00:00 02/01/2022 11:24:21 [id number] Zhao Finn MD [facility] Orth[facility] [place] [address] [facility] [address] [place] [address] 03/01/2022 00:00:00 03/01/2022 11:00:02 [id number] Yarelis Camargo MD [facility] Internal Med [place] [address] [facility] [address] , [place] [address] 05/01/2022 00:00:00 05/06/2022 14:18:31 [id number] Yarelis Camargo MD [facility] Internal Med [place] [address] [facility] [address] , [place] [address] 09/04/2022 00:00:00 09/23/2022 14:11:01 [id number] Yarelis Camargo MD [facility] Internal Med [place] [address] [facility] [address] , [place] [address] 11/22/2022 10:15:23 11/22/2022 11:05:51 Type 2 diabetes mellitus without complication 626955907 E11.9 Essential hypertension 57239111 I10 Coronary arteriosclerosis 79085025 I25.10 Chronic sy stolic heart failure 367008182 I50.22 [id number] Yarelis Camargo MD [facility] Internal Med [place] [address] [place] [address] 03/20/2023 11:10:56 03/20/2023 11:54:16 Essential hypertension 32844641 I10 Type 2 darling betes mellitus without complication 121378184 E11.9 Chronic sy stolic heart failure 057043640 I50.22 Coronary arteriosclerosis 79747023 I25.[id number] MD [facility] General Surgery [address] [place] [address] 04/11/2023 11:01:53 04/11/2023 15:27:56 Epidermoid cyst of skin 465492788 L72.[id number] MD [facility] General Surgery [address] [place] [address] 04/30/2023 11:19:32 04/30/2023 12:31:43 Sebaceous cyst of skin 527283997 L72.[id number] MD [facility] General Surgery [address] [facility] [address] [place] [address] 05/07/2023 10:39:54 05/07/2023 13:14:09 Epidermoid cyst of skin 028098717 L72.0 Left Axillary [id number] Yarelis Camargo MD [facility] Internal Med [address] [facility] [address] [place] [address] 07/17/2023 11:04:41 07/17/2023 12:53:24 Essential hypertension 75672034 I10 Type 2 darling betes mellitus without complication 391582496 E11.9 Screening for malignant neoplasm of prostate 560465369 Z12.5 Administra tion of influenza vaccine 15083355 Z23 [id number] To Hurst MD [facility] [place] [address] [place] [address] 05/06/2024 15:08:21 05/06/2024 16:34:44 Pain of right knee joint 5807244929 55030 M25.561 Health Concerns Section Related Observation LastModified by Organization Detai ls LastModified Time None Recorded Concern Status LastModified by Organization Details LastModified Time None Recorded Advance Directives Directive N: Payers Insurance Date Sequence Insurance Name Policy Number Policy Brand Covered Member ID Brand Member ID Guarantor Name 05/06/2024 2 [place] [id number] Christopher Meehan Shyam [id number] Christopher Meehan Shyam 05/06/2024 1 [facility] MEDICARE [place] [id number] Christopher Meehan Shyam [id number] Christopher Meehan Shyam 07/06/2024 1 [place] [id number] Christopher Meehan Shyam [id number] Christopher Meehan Shyam 05/06/2024 2 [place] Christopher Meehan Shyam [id number] Christopher Howe 05/06/2024 1 [place] [facility] (MEDICARE REPLACEMENT/AD VANTAGE - PPO) [id number] Christopher Howe [id number] Christopher Howe 05/06/2024 1 [place] Christopher Howe [id number] Christopher Howe 05/06/2024 2 [place]MEDICARE REPLACEMENT/AD VANTAGE - PPO) [id number] Christopher Howe [id number] Christopher Howe 05/06/2024 2 [place] [id number] Christopher Howe [id number] Christopher Howe 05/06/2024 3 [place] Christopher Howe [id number] Christopher Howe 05/06/2024 2 [place] [id number] Christopher Howe [id number] Christopher Howe 05/06/2024 2 [place] Christopher Howe [id number] Christopher Howe Notes Date Note Type Note Provider Name and Address Organization Details Recorded Time 3 text/html patient complains of lump on his left armpit. Has had for years. Occasional discomfort. Denies drainage redness or any other symptoms Demarcus hathaway MD [address] [address], [place], [address], [employer] [facility] [employer] 04/11/2023 14:11:59 3 text/html Patient presents to clinic for excision of cyst of L axilla. No concerns. Demarcus hathaway MD [address], [place], [address], [employer] [facility] [employer] 04/30/2023 13:53:39 3 text/html s/p excision axillary mass. sebaceous cyst. doing well . no concerns. Demarcus hathaway MD [address], [place], [address], [facility] [employer] [facility] 05/07/2023 14:17:54 3 text/html Type 2 diabetes no polyphagia no polydipsiaHypertension blood pressure 122/76 no dizziness no headacheChronic systolic heart failure no PND no orthopnea no edemaDyslipidemia maintained on rosuvastatin and Vascepa Yarelis Camargo MD [address] [place] [address], [place], [address], [facility] [employer] [facility] [employer] [facility] 07/19/2023 19:26:30
--- NOTE | 2025-02-17 21:21 | WPDSLEEPSTUD ---
Sleep Study Date of Study: 01/26/25 Ordering Provider: Venu Camargo, Interpreting Physician: Reena Navas MD Sleep Study Type: Split Polysomnogram Height: 1.85 m Weight: 108.862 kg Body Mass Index: 31.6 Neck Circumference (inches): 18.5 [place]: 13 Reason for Sleep Study Hypersomnolence; known obstructive sleep apnea since 2003 compliant with therapy. Sleep History Christopher Howe is a 75-year-old man with a history of obstructive sleep apnea since 2003. He was borderline at the time but with a bad heart the doctor told him that he should go ahead and use CPAP. He has been on it ever since. He has been having problem with leaking around the mask and difficulty tolerating his current settings. When he wears CPAP, he rarely awakens from sleep feeling short of breath and rarely wakes at night with heartburn, belching or coughing.??Without wearing CPAP, he frequently snores, and frequently snores loudly enough that others complain. Without CPAP, he frequently has trouble sleeping when he has a cold. He occasionally wakes up gasping for breath during the night. He occasionally has breathing problems at night witnessed by others. He never sweats excessively at night. He never notices his heart pounding or beating irregularly during the night. He occasionally falls asleep during the day. He never falls asleep involuntarily, never falls asleep while driving. He never experiences loss of muscle tone with strong emotion. He rarely has daytime difficulty at work due to excessive sleepiness. He never feels paralyzed on waking or falling asleep. He occasionally experiences vivid dreams upon waking or falling asleep. He never feels afraid of going to sleep. He occasionally has nightmares. He occasionally recalls his dreams. He frequently has thoughts racing through his mind. He rarely feels sad or depressed. He rarely feels anxiety. He rarely notices parts of his body jerk. He never kicks during the night. He rarely feels crawling or aching feelings in his legs. He rarely feels leg pain at night. He never has morning jaw pain, rarely grinds his teeth at night. He occasionally feels bothered by pain during the day, occasionally awakened by pain during the night. He occasionally wakes up feeling stiff in the morning, and he occasionally wakes feeling sore or achy. He occasionally awakens with pain in his neck, spine, or joints. He has fatigue and memory problems Normal bedtime is between 9:00 p.m. and 10:00 p.m., falling asleep within 30-60 minutes, waking 3-4 times at night. When he awakens at night, there is no clear reason why. He may be able to return to sleep within 15-20 minutes. Wake time is between 6:00 a.m. and 7:00 a.m.. He typically gets between 6 and 8 hours of sleep per night. He takes naps in the day, however does not feel refreshed after a short nap lasting 10-15 minutes. Habits:??Tobacco:1 ppd Caffeine: 2 cups per day Alcohol: None Recreational substances: None [facility] Past Medical History Medical History (Updated 02/17/25 @ 21:30 by Reena Navas MD) History of heart failure History of TIA (transient ischemic attack) History of RI (myocardial infarction) Benign prostatic hyperplasia Coronary atherosclerosis Essential hypertension Hyperlipidemia Diabetes mellitus Obstructive sleep apnea Surgical History Surgical History (Updated 02/17/25 @ 21:30 by Reena Navas MD) Status post eye surgery Status post cardiac surgery Status post knee surgery Status post vasectomy Family History Family History (Updated 02/17/25 @ 21:32 by Reena Navas MD) Father Alcohol abuse Mother Heart disease Diabetes mellitus Sibling Heart disease Diabetes mellitus Hypercholesterolemia Social History Social History Smoking packs per day: 1 Smoking cigarettes per day: 20.0 Years smoked: 50 Smoking pack-years: 50.00 Smoking status: Current every day smoker Tobacco type: cigarettes Substance use type: does not use Living arrangements: other Additional living arrangements comments: with sp Medications Home Medications ?Medication ?Instructions ?Recorded ?Confirmed ?Type aspirin 81 mg tablet 81 mg PO DAILY 06/04/24 06/10/24 History carvedilol 25 mg tablet 25 mg PO BID 06/04/24 06/10/24 History dapagliflozin propanediol 10 mg 10 mg PO DAILY 06/04/24 06/10/24 History tablet (Farxiga) icosapent ethyl 1 gram capsule 1 g PO BID 06/04/24 06/10/24 History (Vascepa) insulin glargine U-300 conc 300 80 unit subcut DAILY 06/04/24 06/10/24 History unit/mL (3 mL) subcutaneous pen (Toujeo Max U-300 SoloStar) metformin 1,000 mg tablet 1,000 mg PO BID 06/04/24 06/10/24 History rivaroxaban 2.5 mg tablet (Xarelto) 2.5 mg PO BID 06/04/24 06/10/24 History rosuvastatin 20 mg tablet 20 mg PO DAILY 06/04/24 06/10/24 History semaglutide 1 mg/dose (4 mg/3 mL) 4 mg subcut WEEKLY 06/04/24 06/10/24 History subcutaneous pen injector (Ozempic) tamsulosin 0.4 mg capsule 0.4 mg PO DAILY 06/04/24 06/10/24 History valsartan 40 mg tablet 40 mg PO DAILY 06/04/24 06/10/24 History Sleep Procedure A full night polysomnogram using the [employer] multi-channel system recorded the standard physiologic parameters including EEG, EOG, submentalis EMG, anterior tibialis EMG, EKG, body position, nasal and oral airflow using nasal pressure sensor and thermistor. Respiratory parameters of chest and abdominal movements were recorded with Respiratory Inductance Plethysmography belts. Oxygen saturation was recorded by pulse oximetry. Video monitoring was also performed. Sleep stages, periodic limb movements, and EEG arousals were scored in 30 second epochs according to the criteria of the AASM Scoring Manual. The Apnea-Hypopnea Index was calculated using CMS guidelines for definition of hypopnea with 4% O2 desaturations while scoring respiratory events. The patient met criteria for split night study with an apnea-hypopnea index of 10.3 and and desaturation 86%. He used a large SnapLayout and SafetyCulture Simplus mask, initial CPAP was 5 cm, titrated to 7 cm, 9 cm and final pressure was 11 cm. At CPAP 11 cm, the patient spent 66.5 minutes in bed, 29 minutes awake, 25 minutes in non-REM and 12.5 minutes in REM. Sleep efficiency was 56.4%. The residual apnea-hypopnea index was 0. The lowest saturation was 91%. Sleep was very fragmented in the last portion of the night at the last 2 pressures. He had REM in the left lateral position. Sleep Architecture During the diagnostic portion of the study, the total recording time was 189.5 minutes. The total sleep time was 139.5 minutes. Sleep latency was 26.5 minutes. REM latency was 139.0 minutes. Sleep Efficiency was 73.6%. The patient had 15 awakenings for an awakening index of 6.5. Wake after sleep onset time was 23.5 minutes. The patient spent 17.0 minutes, 12.2% of total sleep time in Stage N1. The patient spent 108.5 minutes, 77.8% in Stage N2. The patient spent 0.0 minutes, 0.0% in Stage N3. The patient spent 14.0 minutes, 10.0% in Stage REM sleep. At 12:23:01 AM the patient was placed on PAP treatment using a large Vincent and SafetyCulture Simplus mask and was titrated at pressures ranging from CPAP 5 cm to CPAP 11 cm. During the treatment portion of the study, the total recording time was 311.0 minutes. The total sleep time was 244.5 minutes. Sleep latency was 2.0 minutes. REM latency was 127.0 minutes. Sleep Efficiency was 78.6%. Wake after Sleep Onset time was 64.5 minutes. The patient spent 61.0 minutes, 24.9% of total sleep time in Stage N1. The patient spent 154.5 minutes, 63.2% in Stage N2. The patient spent no time in Stage N3. The patient spent 29.0 minutes, 11.9% in Stage REM. Respiratory Analysis During the diagnostic portion of the study, the patient had 24 hypopneas, no obstructive apneas, no mixed apneas, and no central apneas for an overall Apnea Hypopnea Index of 10.3 events per hour. The REM Apnea Hypopnea Index was 30.0. The NREM Apnea Hypopnea Index was 8.6. The patient had a Central Apnea Hypopnea Index of 0. There were no Respiratory Effort Related Arousals. The Respiratory Disturbance Index is 12.0 events per hour. There was no evidence of Jasper-Aguirre Respirations. During the treatment portion of the study, the patient had 42 hypopneas, 8 obstructive apneas, no mixed apneas, and no central apneas for an overall Apnea Hypopnea Index of 12.3 events per hour. The REM Apnea Hypopnea Index was 0. The NREM Apnea Hypopnea Index was 13.9. The patient had a Central Apnea Hypopnea Index of 0. There were no Respiratory Effort Related Arousals. The Respiratory Disturbance Index is 15.5 events per hour. There was no evidence of Jasper-Aguirre Respirations. Arousals During the diagnostic portion of the study, there were a total of 59 arousals for an arousal index of 25.4. There were 8 respiratory arousals for an index of 3.4. There were no periodic limb movement arousals. There were 10 isolated limb movement arousals for an index of 4.3. There were 41 spontaneous arousals for an index of 17.6. During the treatment portion of the study, there were a total of 126 arousals for an index of 30.9. There were 30 respiratory arousals for an index of 7.4. There was 1 periodic limb movement arousal for an index of 0.2. There were 17 isolated limb movement arousals for an index of 4.2. There were 78 spontaneous arousals for an index of 19.1. Periodic Limb Movements During the diagnostic portion of the study, the patient had 19 isolated limb movements with an index of 8.2. The patient had no periodic limb movements. The patient had a total of 19 limb movements with a total limb movement index of 8.2. During the treatment portion of the study, the patient had 25 isolated limb movements with an index of 6.1. The patient had 8 periodic limb movements with an index of 2.0. The patient had a total of 33 limb movements with a total limb movement index of 8.1. Oximetry Data During the diagnostic portion of the study, the patient had an average oxygen saturation of 92.7% in wake with a minimum oxygen saturation of 86% and a maximum oxygen saturation of 98%. The patient had an average oxygen saturation of 91.1% in sleep with a minimum oxygen saturation of 86% and a maximum oxygen saturation of 95%. The patient had 28 oxygen desaturations resulting in an Oxygen Desaturation Index of 12.0. The patient spent 3.8 minutes, 2% of total sleep time with an oxygen saturation less than 88%. During the treatment portion of the study, the patient had an average oxygen saturation of 93.5% in wake with a minimum oxygen saturation of 87% and a maximum oxygen saturation of 97%. The patient had an average oxygen saturation of 92.7% in sleep with a minimum oxygen saturation of 86% and a maximum oxygen saturation of 96%. The patient had 62 oxygen desaturations resulting in an Oxygen Desaturation Index of 15.2. The patient spent 1.1 minutes, 0.4% of total sleep time with an oxygen saturation less than 88%. Snoring Profile During the diagnostic portion, snoring was noted, and at the optimal pressure, snoring was eliminated. Cardiac Profile During the diagnostic portion of the study, the EKG showed normal sinus rhythm. The average pulse rate was 78.4 bpm. The minimum pulse rate was 64 bpm. The maximum pulse rate was 93 bpm. He has a pacemaker, had some paced beats. No arrhythmias noted. During the treatment portion of the study, the EKG showed normal sinus rhythm, some paced beats. The average pulse rate was 71.7 bpm. The minimum pulse rate was 60 bpm. The maximum pulse rate was 91 bpm. No arrhythmias noted. EEG Profile Unremarkable, no evidence of seizures. Assessment and Plan Assessment and Plan (1) Obstructive sleep apnea: Code(s): G47.33 - Obstructive sleep apnea (adult) (pediatric) Status: Acute Assessment and Plan: This split night sleep study on 01/26/2025 it shows an apnea-hypopnea index of 10.3 with desaturation 86%, successfully treated using a large SnapLayout and SafetyCulture Simplus mask and CPAP 11 cm. At this pressure, the patient spent 66.5 minutes in bed, 29 minutes awake, 25 minutes in non-REM and 12.5 minutes in REM. Sleep efficiency was 56.4%. The residual apnea-hypopnea index was 0. The lowest saturation was 91%. Sleep was very fragmented in the last portion of the night at the last 2 pressures. He had REM in the left lateral position. The patient should be prescribed this ResMed equipment as well as tubing, filters and reservoir. This should be used with all episodes of sleep. Compliance should be reviewed within 31-90 days of starting therapy for usage greater than 4 hours per night greater than 70% of the nights. The patient should be asked about symptoms such as excessive daytime sleepiness, quality of sleep, decreased nocturia, increased mental functioning such as memory, mood, and concentration. BMI is 31. Weight management is advised. Clinical data suggests that weight loss of 10% can reduce the severity of respiratory events and snoring and improve AHI by as much as 25%. Data The data obtained during this sleep study is adequate for interpretation. Certification This sleep study has been reviewed by a board certified sleep medicine physician.
[2025-02-17 21:50] VITALS: BMI 31.6
== END 2025-01-27 06:23 | disposition home or self-care (01) ==
LOC: ANHCSM 08:35
PROVIDERS: PCP Internal Medicine; Visit Provider Internal Medicine
DX: G47.33 Obstructive sleep apnea (adult) (pediatric) (principal)
CPT/HCPCS: 95811

== ENCOUNTER 2025-06-22 13:19 | Outpatient (CLI) | payer BC, SELFPAY ==
--- NOTE | 2025-06-22 13:20 | NEURO_ITS ---
Impression: # assisted diabetic complaining of increasing numbness. ? # Axonal motor/sensory neuropathy with neurogenic changes on the Needle/ EMG exam. Nerve Conduction Studies ?Stim Site NR Peak (ms) P-T Amp (?V) Site1 Site2 Delta-P (ms) Dist (cm) Eric (m/s) Left Sup Fibular Anti Sensory (Ant Lat Mall)??? NO RESPONSE 14 cm NR 14 cm Ant Lat Mall 16.0 Right Sup Fibular Anti Sensory (Ant Lat Mall)??? NO RESPONSE 14 cm NR 14 cm Ant Lat Mall 16.0 Left Sural Anti Sensory (Lat Mall)??? NO RESPONSE Calf NR Calf Lat Mall 16.0 Right Sural Anti Sensory (Lat Mall) Calf ? 3.5 4.9 Calf Lat Mall 3.5 16.0 46 ?Stim Site NR Onset (ms) O-P Amp (mV) Site1 Site2 Delta-0 (ms) Dist (cm) Eric (m/s) Left Peroneal Motor (Vastus Med) Ankle ? 5.8 0.1 Popit Ankle 14.3 43.0 30 Popit ? 20.1 0.4 Right Peroneal Motor (Vastus Med) Ankle ? 5.6 0.3 Popit Ankle 12.8 45.0 35 Popit ? 18.4 0.7 Left Tibial Motor (Abd Ferguson Brev) Ankle ? 7.0 2.1 Knee Ankle 11.0 42.0 38 Knee ? 18.0 1.5 Right Tibial Motor (Abd Ferguson Brev) Ankle ? 5.5 1.6 Knee Ankle 12.5 45.0 36 Knee ? 18.0 0.7 F Wave Studies ?NR F-Lat (ms) L-R F-Lat (ms) Left Peroneal (Mrkrs) (EDB)??? DISPERSED RESPONSE NR Right Peroneal (Mrkrs) (EDB)??? DISPERSED RESPONSE NR Left Tibial (Mrkrs) (Abd Hallucis) ? 65.33 2.22 Right Tibial (Mrkrs) (Abd Hallucis) ? 67.55 2.22 Electromyography ?Side Muscle Nerve Root Ins Act Fibs Amp Dur Recrt Comment Right AntTibialis Dp Br Fibular L4-5 Nml Nml Decr >12ms +1 Right Gastroc Tibial S1-2 Nml Nml Decr >12ms +1 Right Fibularis Long Sup Br Fibular L5-S1 Nml Nml Decr >12ms +1 Right Flex Dig Long Tibial L5-S2 Nml Nml Decr >12ms +1 Left Fibularis Long Sup Br Fibular L5-S1 Nml Nml Decr >12ms +1 Right Ext Dig Brev Dp Br Fibular L5, S1 Nml Nml Decr >12ms +1 Right QuadratusFem QuadFemoris L4-5, S1 Nml Nml Decr >12ms +1 Left AntTibialis Dp Br Fibular L4-5 Nml Nml Decr >12ms +1 Left Gastroc Tibial S1-2 Nml Nml Decr >12ms +1 Left Flex Dig Long Tibial L5-S2 Nml Nml Decr >12ms +1 Left Ext Dig Brev Dp Br Fibular L5, S1 Nml Nml Decr >12ms +1 Left QuadratusFem QuadFemoris L4-5, S1 Nml Nml Decr >12ms +1
== END 2025-06-22 13:20 | disposition home or self-care (01) ==
LOC: ANHNEURO 13:29
PROVIDERS: PCP Internal Medicine; Visit Provider Internal Medicine
DX: E11.42 Type 2 diabetes mellitus with diabetic polyneuropathy (principal)
CPT/HCPCS: 95886; 95910